=== PATIENT | female | born 1940 | race Caucasian/White ===

== ENCOUNTER → 2016-09-17 | Outpatient (CLI) | payer OTHER, MEDICARE ==
--- NOTE | 2016-09-17 14:30 | MAMMOGRAPHY REPORT ---
BILATERAL DIGITAL SCREENING MAMMOGRAM WITH CAD: 09/17/2016 CLINICAL HISTORY: Routine screening. TECHNIQUE: Bilateral CC and MLO views were obtained. Current study was also evaluated with a Comput er Aided Detection (CAD) system. COMPARISON: Comparison is made to exams dated: 09/13/2015 mammogram, 09/09/2014 mammogram, 09/08/2013 mamm ogram, 09/04/2012 mammogram, 09/03/2011 mammogram, and 08/28/2010 mammogram - [facility] er. BREAST COMPOSITION: There are scattered areas of fibroglandular density in both breasts. FINDINGS: There are a few scattered benign-appearing calcifications in the breasts. No suspicious ma ss, architectural distortion or cluster of suspicious microcalcifications is seen. IMPRESSION: ACR BI-RADS CATEGORY 1: NEGATIVE There is no mammographic evidence of malignancy. A 1 year screening mammogram is recommended. The pa tient will receive written notification of the results. Approximately 10% of breast cancers are not detected with mammography. A negative mammographic report should not delay biopsy if a clinically suggestive mass is present. Chantale Andrade M.D. ay/:09/17/2016 08:07:52 Heel Turner: Sage FELIX(Tasia)(Holden), [facility] letter sent: Normal 1/2 BI-RADS Code: ACR BI-RADS Category 1: Negative
== END | disposition home or self-care (01) ==
LOC: C.MAMM 07:35
PROVIDERS: ATTEND Obstetrics & Gynecology
DX: Z12.31 Encounter for screening mammogram for malignant neoplasm of breast (principal)

== ENCOUNTER → 2017-01-25 | Outpatient (CLI) | payer OTHER, MEDICARE ==
[2017-01-25 10:11] LABS: HEMATOCRIT 42.7 % (37-47); MEAN CELL VOLUME 93.8 fL (80-100); MEAN CORPUSCULAR HEMOGLOBIN 32.1 pg (25-34); MEAN CORPUSCULAR HGB CONC 34.2 g/dl (32-36); MEAN PLATELET VOLUME 10.5 fL (7.4-10.4); PLATELET COUNT 183 K/uL (130-400); RED BLOOD COUNT 4.55 M/uL (4.2-5.4); WHITE BLOOD COUNT 5.69 K/uL (4.8-10.8)
[2017-01-25 10:33] LABS: ALT/SGPT 38 U/L (12-78); AST/SGOT 34 U/L (15-37); BLOOD UREA NITROGEN 11 mg/dl (7-18); BUN/CREATININE RATIO 10.9 (10-20); CALCIUM 9.2 mg/dl (8.5-10.1); CARBON DIOXIDE 29 mmol/L (21-32); CHLORIDE 103 mmol/L (98-107); CREATININE 0.99 mg/dl (0.60-1.20); GLUCOSE 98 mg/dl (70-99); POTASSIUM 4.5 mmol/L (3.5-5.1); SODIUM 138 mmol/L (136-145)
[2017-01-25 10:36] LABS: ALB/GLOB RATIO 1.2 (0.9-2); ALKALINE PHOSPHATASE 91 U/L (45-117); CHOLESTEROL 174 mg/dl (0-200); CHOLESTEROL/HDL RATIO 2.9; HDL CHOLESTEROL 59 mg/dl; LDL CHOLESTEROL CALCULATED 97 mg/dl; TRIGLYCERIDES 92 mg/dl (0-150); VERY LOW DENSITY LIPOPROT CALC 18 mg/dl
[2017-01-25 11:21] LABS: BASO % 1.1 %; BASO ABS # 0.06 K/uL (0-0.2); COMPLETE YES; EOS % 0.7 %; IG% 0.5 %; LYMPH % 54.1 %; LYMPH ABS # 3.08 K/uL (1.2-3.4); MONO % 9.3 %; NEUT % 34.3 %
== END | disposition home or self-care (01) ==
LOC: C.LAB 09:23
PROVIDERS: ATTEND Nurse Practitioner Family
DX: R79.89 Other specified abnormal findings of blood chemistry (principal); E78.5 Hyperlipidemia, unspecified; I10 Essential (primary) hypertension; M81.0 Age-related osteoporosis without current pathological fracture

== ENCOUNTER 2017-10-17 07:57 | Emergency (ER) | payer OTHER, MEDICARE ==
[~2017-10-17] VITALS: Ht 160 cm; Wt 54.1 kg
[2017-10-17 08:00] VITALS: BP 156/72; Ht 160 cm; Wt 54.1 kg
--- NOTE | 2017-10-17 08:30 | DIAGNOSTIC IMAGING REPORT ---
L KNEE 3 VIEWS CLINICAL HISTORY: 77 years-old Female presenting with fall. TECHNIQUE: Frontal, sunrise, and lateral views of the left knee were obtained. COMPARISON: None. FINDINGS: Knee joint congruent. No significant joint space loss. No patellar subluxation. Minimal osteophytosis in the patellofemoral compartment prominently in the lateral facet. Enthesophyte noted at the insertion of the quadriceps tendon. No acute fracture or malalignment. No advanced degenerative change. Trace knee joint effusion may be present. IMPRESSION: 1. No acute osseous injury. 2. Mild degenerative changes in the patellofemoral compartment. Electronically signed by: Olivier Escamilla M.D. 10/17/2017 8:29 AM Dictated Date/Time: 10/17/2017 8:28 AM
[2017-10-17] MEDS ORDERED: LOVA20TA4 PO (08:38)
[2017-10-17] MEDS ORDERED: OMEP-334 PO (08:38)
[2017-10-17] MEDS ORDERED: CALC-20 PO (08:38)
[2017-10-17] MEDS ORDERED: DIPH1TAB87 PO (08:38)
[2017-10-17] MEDS ORDERED: MULT-506 PO (08:38)
[2017-10-17] MEDS ORDERED: OMEGCAP2 PO (08:38)
[2017-10-17 09:23] VITALS: PULSE 72; TEMP 36.6; O2SAT 98
--- NOTE | 2017-10-17 14:04 | EMERGENCY ROOM VISIT NOTE ---
ED Visit Note First contact with patient: 08:06 Chief Complaint: Left knee pain. History of Present Illness: Ms. Ann is a 77-year-old white female who ambulates into the ED accompanied by her complaining of anterior left knee pain. Patient reports yesterday morning approximately 20+ hours ago she tripped and fell while walking in the house in her kitchen. She reports she did strike her head on 1 of the cabinets but had no loss of consciousness. She reports that after she struck her head on a kitchen cabinet causing her to have some mild dizziness and her "eyes were out of focus for approximately 5 minutes". Those symptoms resolve and have not returned. Additionally she denies any signs of head injury since the fall. She reports when she landed on the ground she landed on a bent left knee. Since that time she has been noting increasing pain, bruising and swelling of the knee. Currently at rest she reports she is pain-free but when she moves from the sitting to standing position she develops a grinding-like pain in her knee. She rates his discomfort 5/10. The pain is nonradiating. She has been taken ibuprofen and using ice for her pain and has had moderate relief of her discomfort. She denies any associated symptoms including headache, dizziness, lightheadedness, visual changes, hearing changes, difficulty speaking, difficulty swallowing, difficulty ambulating/coordinating body movements, neck pain, back pain, chest pain, shortness of breath, abdominal pain, nausea, vomiting, left lower extremity weakness/numbness/tingling. Review of Systems: As noted above in history of present illness. 8 body systems were reviewed and found to be negative as noted above. Past Medical History: Dyslipidemia, osteoporosis. Current Medications: Omeprazole, Mevacor, Benadryl, multivitamin, calcium, fish oil. Allergies to Medications: Lisinopril, penicillin. Social History: Patient is currently retired and is not employed; she feels safe in her home environment; she denies tobacco use. Physical Examination: Vital Signs: Date Time Temp Pulse Resp B/P (MAP) Pulse Ox O2 Delivery O2 Flow Rate FiO2 10/17/17 09:23 36.6 72 18 98 10/17/17 08:00 36.5 78 20 156/72 96 Room Air GENERAL: 77-year-old female in mild distress due to pain, nontoxic-appearing, afebrile and hemodynamically stable. NEUROLOGICAL: Awake, alert and oriented to person, place and time. Answering questions appropriately and following commands. Normal gait. Good hand eye coordination. No focal motor or sensory deficits. Good short-term and long- term recall. Cranial nerves II through XII grossly intact. SKIN: Warm, dry and pink. Right Knee: Over the right anterior knee including patella patient has a contusion. There is no breaks in the skin HEENT: Atraumatic and normocephalic. Skull: No bony deformity, bony crepitus, raccoons eyes or mancera signs. No drainage from the ears of the nostril; no hemotympanum. Face: No bony deformity, bony crepitus, swelling or ecchymosis. PERRLA. EOMI without nystagmus. Sclera white and conjunctiva pink. No occlusion. No intraoral trauma. Airway patent. Speech is normal and clear. Trachea midline. No jugular venous distention. BACK: No tenderness over the bony spine. No CVA tenderness. THORAX: Lungs sounds are clear to auscultation and equal bilaterally with symmetrical chest wall. No wheezing, rales or rhonchi. No crepitus, tenderness , subcutaneous air or deformities noted. LEFT LOWER EXTREMITY: No gross bony deformity. No shortening or malrotation. No tenderness in the hip, thigh, lower leg, ankle or foot. Tenderness, swelling and bruising over the anterior knee including the patella. There is mild swelling in this area. I do not appreciate any bony deformity or crepitus. No laxity of the collateral or cruciate ligaments. Full range of motion in flexion and extension of the knee in plantarflexion and dorsiflexion of the ankle. Distal neurovascular statuses are intact and equal bilaterally. ED Course: Patient is assessed as noted above. Patient's medication list was reviewed. Patient was offered pain medication and refused. Left Knee X-Rays: Were read by myself and the radiologist showing no acute fractures or dislocations. Trace joint effusion. Minimal osteophytosis in the patellofemoral compartment predominantly over the lateral facet. Enthesophyte at the insertion of the quadriceps tendon. Patient was placed in an Juan bandage for support. Patient and were educated about today's findings and instructed on her treatment plan; they verbalized understanding and agreement with this plan. Clinical Impression: Left knee pain. Status post fall. Disposition: Patient discharged home in stable condition accompanied by her ; prior to departure she was reassessed and subjectively reported she was pain-free. Plan: Comfort measures were discussed with the patient including rest, ice, Juan bandage, alternating ibuprofen and acetaminophen for pain. Patient was encouraged to follow-up with community service specialist if no better in 6 -7 days. Patient was encouraged return the ED for worsening/uncontrolled pain, uncontrolled swelling, leg weakness/numbness/tingling or any new/concerning symptoms.
== END 2017-10-17 09:25 | disposition home or self-care (01) ==
LOC: C.EDB 07:59
DX: M25.562 Pain in left knee (principal); W01.0XXA Fall on same level from slipping, tripping and stumbling without subsequent striking against object, initial encounter; Y92.010 Kitchen of single-family (private) house as the place of occurrence of the external cause; E78.5 Hyperlipidemia, unspecified; M81.0 Age-related osteoporosis without current pathological fracture; Z79.899 Other long term (current) drug therapy; Z88.8 Allergy status to other drugs, medicaments and biological substances; Z88.0 Allergy status to penicillin

== ENCOUNTER → 2017-10-18 | Outpatient (CLI) | payer OTHER, MEDICARE ==
[~2017-10-18] MED LIST: CALC-20 PO; DIPH1TAB87 PO; LOVA20TA4 PO; MULT-506 PO; OMEGCAP2 PO; OMEP-334 PO
--- NOTE | 2017-10-18 15:27 | MAMMOGRAPHY REPORT ---
BILATERAL DIGITAL SCREENING MAMMOGRAM TOMOSYNTHESIS WITH CAD: 10/18/2017 CLINICAL HISTORY: Routine screening. Patient has no complaints. TECHNIQUE: The study was acquired using full field digital technology and interpreted from soft copy. Breast tomosynthesis in addition to standard 2D mammography was performed. Current study was also ev aluated with a Computer Aided Detection (CAD) system. COMPARISON: Comparison is made to exams dated: 09/17/2016 mammogram, 09/13/2015 mammogram, 09/09/2014 amy mogram, 09/08/2013 mammogram, 09/04/2012 mammogram, and 09/03/2011 mammogram - [facility] er. BREAST COMPOSITION: There are scattered areas of fibroglandular density in both breasts. FINDINGS: No suspicious masses, calcifications, or areas of architectural distortion are noted in either breast . There has been no significant interval change compared to prior exams. Scattered bilateral benign-a ppearing calcifications are not significantly changed. Asymmetry in the left subareolar breast is st able compared to multiple prior exams including the 2009 exam. Asymmetry in the right medial breast middle depth on the CC view is stable compared to multiple prior exams including the 2013 and 2007 ex ams. IMPRESSION: ACR BI-RADS CATEGORY 2: BENIGN There is no mammographic evidence of malignancy. A 1 year screening mammogram is recommended.( [id number]) The patient will receive written notification of the results. Some breast cancers are not detected with mammography. A negative mammographic report should not ricardo y biopsy if a clinically suggestive mass is present. Lyndsay Ngo M.D. ah/:10/18/2017 12:29:12 Foil Spinner: RT Misty(R)(M), [facility] letter sent: Normal 1/2 BI-RADS Code: ACR BI-RADS Category 2: Benign
== END | disposition home or self-care (01) ==
LOC: C.MAMM 09:55
PROVIDERS: ATTEND Obstetrics & Gynecology
DX: Z12.31 Encounter for screening mammogram for malignant neoplasm of breast (principal)

== ENCOUNTER 2023-08-16 09:28 | Inpatient (IN) ==
--- NOTE | 2023-08-16 09:35 | Emergency Department Note ---
Impression & Plan ACS (acute coronary syndrome), Neck pain, ST elevation (STEMI) myocardial infarction, Acute UTI ED Provider Note CHIEF COMPLAINT: Urinary symptoms and neck pain HISTORY OF PRESENTING ILLNESS: This 83 year old female patient presents to the ER via EMS with her for evaluation of urinary symptoms and neck pain. The patient had a fall on 08/06/[address] scans of her head and neck in the ER. She saw her PCP on 08/09/2023, 08/12/2023 and 08/13/2023 and was treated with prednisone and methocarbamol as well as meloxicam cyclobenzaprine, and tramadol without improvement of her symptoms. She discussed possible trigger point injections with her PCP, but they did not recommend them due to the location of the symptoms. She has not gotten into PT yet, but it is being set up. The patient has been feeling weak at home for the past 3 days and has had some very dark and strong smelling urine. The patient is still also having a lot of pain to the right side of her neck and bottom of her head. She denies chest pain or SOB. She denies abdominal pain, nausea, or vomiting. Does not have BMs very often, but this is her baseline. No change in her BMs recently. No new injury or trauma. The patient still has a mild headache to the bottom right side of the base of the skull. Denies dizziness, change in vision, or change in personality. However, the patient's states that she is beginning progressively weaker since the fall and she is now having trouble ambulating on her own when she was able to ambulate without problems previously. The patient and her are concerned that she is still having the right-sided neck and lower head pain. Her home nurses were also concerned about her symptoms and advised her to come to the ER. She is not on any blood thinners. REVIEW OF SYSTEMS: See HPI for pertinent positives and pertinent negatives. ALLERGIES: Augmentin, Doxycycline, lisinopril, PCN, grass pollen MEDICATIONS: See below PAST MEDICAL HISTORY: See below PHYSICAL EXAM: VITALS: Vitals are noted on the nurse's note and reviewed by myself. GENERAL: No acute distress, non-diaphoretic. SKIN: No obvious lacerations, abrasions, erythema, edema, fluctuance, or warmth in the area of concern. Capillary reflex less than 2 seconds. HEAD: The patient is tender to palpation over the right occipital area and base of the skull. No obvious step-offs felt. EYES: Pupils equal round and reactive to light and accommodation. Conjunctivae without injection, sclerae without icterus. Extraocular movements intact without pain. NOSE: Patent, turbinates without inflammation or discharge. No sinus tenderness. No septal hematoma or bleeding. FACE: No facial bone tenderness. Full range of motion of the jaw without tenderness. No facial droop. MOUTH: Mucous membranes moist. Uvula midline. Airway patent. Tongue does not deviate. NECK: Supple without nuchal rigidity. The patient is tender to palpation maximally over the right side of the C1 and C2 vertebrae and right-sided paraspinal muscles. The patient has decreased range of motion of the neck due to the pain. HEART: Regular rate and rhythm without murmurs gallops or rubs. LUNGS: Clear to auscultation bilaterally without wheezes, rales or rhonchi. No retractions or accessory muscle use. No chest wall tenderness. ABDOMEN: Positive bowel sounds x 4. Normal tympanic percussion. Soft, nontender, without masses or organomegaly. No guarding or rebound tenderness. MUSCULOSKELETAL: No tenderness of the thoracic or lumbar spine or paraspinal muscles. The patient's strength is 4/5, but equal throughout her bilateral upper and lower extremities. Peripheral pulses 2+ and equal in the bilateral upper and lower extremities. NEURO: Patient was alert and oriented at her baseline per . Normal sensation to light and sharp touch. No focal neurological deficits. DIFFERENTIAL DIAGNOSIS: Differential diagnosis includes benign positional vertigo, dehydration, hypovolemia, anemia, tumor, infection, hypoglycemia, electrolyte abnormalities, cardiac sources, intracerebral event, toxicologic, neurologic, concussion, contusion, fracture, subdural hematoma, epidural hematoma, intraparenchymal hemorrhage, UTI, sepsis, electrolyte abnormalities, dehydration as well as other pathologies. ED COURSE AND MEDICAL DECISION MAKING: HISTORY FROM INDEPENDENT HISTORIAN: Additional history obtained from the patient's . MONITOR: Continuous weapons and tactics instructor: Order was placed for continuous weapons and tactics instructor. Patient was placed on the weapons and tactics instructor and continuous pulse ox. Patient was noted to be in sinus tachycardia at an initial rate of 110 bpm per my interpretation. The patient was also hypotensive at 93/73. EKG: EKG was interpreted by myself as anterolateral ST elevations. This appears new compared to her previous EKG. Repeat EKG was interpreted by myself and shows slightly worsening anterolateral ST elevations. MEDICATIONS GIVEN: 500 mL normal saline solution bolus. Tylenol 1000 mg IV. Aspirin 324 mg p.o. chewed. INTERPRETATION OF LABS: I interpreted the labs with full lab results as below in the lab section of this note. The patient's white blood cell count was elevated at 12.11. Hemoglobin normal at 15.2. Coags were normal. Sodium low at 131, glucose elevated at 120, and AST 135. CMP otherwise without significant abnormalities. Magnesium normal. Lipase normal. Procalcitonin normal. The patient's urinalysis with positive nitrites, trace leukocytes, 6-10 white blood cells, and 4+ bacteria concerning for UTI with urine culture pending. Lactate elevated at 2.1. High-sensitivity troponin elevated at 16,908.7. INTERPRETATION OF IMAGING: Imaging studies were interpreted by myself and read by radiology as per the imaging section of this note. Chest x-ray with cardiomegaly, but no active disease of the chest. EXTERNAL RECORDS REVIEWED: Previous ER visit as well as multiple PCP visits as summarized above. CONSULTATIONS: Dr. Hensley of cardiology. Dr. Quintana of interventional cardiology. CRITICAL CARE: I have personally spent 35 minutes of critical care time in the direct management of this patient. This includes bedside care, interpretation of diagnostic studies, and testing, discussion with consultants, patient, and family members, and other required patient management activities. This 35 minutes is in excess of all separately billable procedures. MDM SUMMARY: I examined the patient. The patient presented to the ER via EMS for evaluation of urinary symptoms, weakness, and continued neck pain after a fall on 08/06/2023. The patient's and her home health aide were concerned that she seemed to be getting worse instead of better. The patient has been afebrile, but she was hypotensive and tachycardic upon arrival. The patient denied any chest pain, shortness of breath, abdominal pain, nausea, or vomiting. I reviewed the patient's past medical records. The patient had a CT scan of her head and cervical spine in the ER on 08/06/2023 that were negative for acute abnormalities. The patient is not on any blood thinners. She tried multiple medications as an outpatient as above without improvement of her symptoms. An IV lock was placed and labs were drawn. The patient was hydrated with 500 mL normal saline solution bolus. She was given Tylenol 1000 mg IV for her pain. The patient's white blood cell count was elevated at 12.11. Hemoglobin normal at 15.2. Coags were normal. Sodium low at 131, glucose elevated at 120, and AST 135. CMP otherwise without significant abnormalities. Magnesium normal. Lipase normal. Procalcitonin normal. The patient's urinalysis with positive nitrites, trace leukocytes, 6-10 white blood cells, and 4+ bacteria concerning for UTI with urine culture pending. However, urine was not treated in the ER as this resulted after the abnormal EKG and troponin as below. Chest x-ray showed cardiomegaly with no active disease in the chest. The decision was made to order a repeat CT scan of the head and neck as well as CTA of the head and neck for further evaluation of her continued symptoms along with her weakness and ambulatory dysfunction. However, the patient never had the scans done due to the abnormal EKG and troponin as below. The patient's initial EKG showed sinus tachycardia at [address] elevations in the anterolateral leads that appear new compared to her previous EKG. I took the EKG to Dr. Arvizu who also reviewed the EKG and was in agreement. Repeat EKG showed continued anterolateral ST elevation that was slightly worse. However, the patient was not having any chest pain or shortness of breath. Her neck pain had been present since her fall on 08/06/2023 and she had been weak for the past 3 days. Therefore, the recommendation was to consult cardiology for their opinion. I talked to Dr. Hensley right as the patient's troponin was being resulted. The patient's troponin came back elevated at 16,908.7 and the decision was made to call a heart alert. The patient was given aspirin 324 mg p.o. chewed. The patient's lactate also came back elevated at 2.1 at the same time, but this may be secondary to her cardiac etiology and less likely sepsis. Blood cultures, antibiotics, and sepsis fluids were not given/obtained because the patient was taken to the [facility] for the heart alert. The patient was independently evaluated by Dr. Arvizu, who agrees with my assessment and treatment plan. The patient was evaluated by Dr. Quintana of interventional cardiology and she was taken to the [facility]. The patient was taken to the [facility] in stable condition. DIAGNOSIS: ACS - STEMI UTI Neck pain Past Med/Surg History Problem List (Updated 08/16/23 @ 20:29 by Cindi Medina PA-C) Acute UTI (Acute) ST elevation (STEMI) myocardial infarction (Acute) Neck pain (Acute) UTI (urinary tract infection) ACS (acute coronary syndrome) (Acute) Neck pain (Acute) CHI (closed head injury) (Acute) Mild neurocognitive disorder (Chronic) Hyponatremia Closed fracture distal radius and ulna (02/22/23) Allergic rhinitis (Acute) Dyslipidemia (Acute) Benign essential hypertension (Acute) Laryngopharyngeal reflux (Acute) Osteoporosis (Acute) Medical History GERD (gastroesophageal reflux disease) Cardiac murmur Hyperlipidemia Surgical History History of tubal ligation History of dilatation and curettage History of colonoscopy History of tonsillectomy History of adenoidectomy History of cataract surgery R/L Family History Father Prostate cancer Mother Rheumatoid arthritis Osteoarthritis Denies family history of Ovarian cancer Myocardial infarction Breast cancer Colorectal cancer Social History Smoking Status: Never smoker Second Hand Exposure: No; Do You Dip or Chew Tobacco: No; Hx Alcohol Use: Yes Alcohol type: wine Alcohol Intake Frequency: 2-4 x/Month Hx Substance Use: No Preferred Language: Tajik Communication Ability: Effective Visual Impairment: No Limitations Hearing Ability: Normal Casing Machine Operator Required: No Beliefs That Will Affect Care: Restoration marital status: Current Living Situation: Alone and Spouse current occupational status: retired How many Children do You have: 2 Other Information That Helps Us Care for You: No Feels Safe at Home: Yes Safety Concerns: Feels Safe At This Time Childhood Exposure to Second-Hand Smoke: Yes Diet: regular caffeine: Yes during the past year weight has: remained stable Dental Care, Regularly: Yes Physical Activity Frequency: 5-6 Times per Week Seatbelt Use: always Sunscreen Use: Yes Assistive Devices: Denture - Upper and Glasses Allergies Allergies Allergy/AdvReac Type Severity Reaction Status Date / Time amoxicillin [From Augmentin] Allergy Unknown Verified 08/13/23 14:53 clavulanic acid Allergy Unknown Verified 08/13/23 14:53 [From Augmentin] doxycycline Allergy Unknown Verified 08/13/23 14:53 lisinopril Allergy Unknown vomitting Unverified 08/13/23 14:53 Penicillins Allergy Unknown HIVES Verified 08/13/23 14:53 grass pollen AdvReac Unknown Sneezing Verified 08/13/23 14:53 Home Meds Home Medications Medication Instructions Recorded Confirmed cholecalciferol (vitamin D3) 50 2,000 unit PO QPM 11/14/17 08/13/23 mcg (2,000 unit) capsule (Vitamin D3) multivitamin (Multiple Vitamins 1 tab PO QAM 11/14/17 08/13/23 tablet) calcium carbonate 500 mg-vitamin 1 tab PO DAILY 02/24/19 08/13/23 D3 5 mcg (200 unit) tablet (Calcium 500 + D) Previous Rx's Medication Instructions Recorded ipratropium bromide 42 mcg (0.06 2 spray intranasal TID #15 mL 03/20/23 %) nasal spray lovastatin 20 mg tablet 20 mg PO QAM #90 tabs 04/15/23 omeprazole 40 mg capsule,delayed 40 mg PO QAM #90 caps 05/13/23 release ondansetron HCl 4 mg tablet 4 mg PO BID PRN nausea and 08/09/23 vomiting 5 days #14 tabs cyclobenzaprine 10 mg tablet 10 mg PO TID #14 tabs 08/12/23 meloxicam 7.5 mg tablet 7.5 mg PO BID #30 tabs 08/12/23 tramadol 50 mg tablet 50 mg PO DAILY #7 tabs 08/12/23 Results & Data (ED) Vital Signs Vital Signs - 24 hr 08/16/23 09:33 08/16/23 09:33 08/16/23 10:32 Temperature 36.9 C Temperature Source Oral Pulse Rate 113 H 104 H Pulse Rate [Finger] 113 H Pulse Rhythm [Finger] Pulse Strength [Finger] Respiratory Rate 20 18 Respiratory Effort / Characteristics Non-Labored Spontaneous Non-Labored Spontaneous Respiratory Depth Normal Normal Respiratory Pattern Regular Regular Blood Pressure 93/73 L Blood Pressure [Right Arm] 93/73 L Blood Pressure Mean 79 Blood Pressure Mean [Right Arm] 79 Blood Pressure Position Lying Blood Pressure Position [Right Arm] Lying Pulse Oximetry 94 94 Oxygen Delivery Method Room Air Room Air Sepsis Recent Fever Within 48 Hours No Sepsis New/Unexplained Change in Mental Status N/A Sepsis Action Taken by Nursing Physician Notified 08/16/23 10:38 08/16/23 10:42 08/16/23 10:45 Temperature Temperature Source Pulse Rate 104 H Pulse Rate [Finger] 95 H 104 H Pulse Rhythm [Finger] Regular Pulse Strength [Finger] Normal Respiratory Rate 18 22 Respiratory Effort / Characteristics Non-Labored Spontaneous Respiratory Depth Normal Respiratory Pattern Regular Blood Pressure Blood Pressure [Right Arm] 117/80 Blood Pressure Mean Blood Pressure Mean [Right Arm] 92 Blood Pressure Position Blood Pressure Position [Right Arm] Lying Pulse Oximetry 96 96 Oxygen Delivery Method Room Air Room Air Sepsis Recent Fever Within 48 Hours Sepsis New/Unexplained Change in Mental Status Sepsis Action Taken by Nursing 08/16/23 10:54 Temperature Temperature Source Pulse Rate Pulse Rate [Finger] Pulse Rhythm [Finger] Pulse Strength [Finger] Respiratory Rate Respiratory Effort / Characteristics Respiratory Depth Respiratory Pattern Blood Pressure Blood Pressure [Right Arm] Blood Pressure Mean Blood Pressure Mean [Right Arm] Blood Pressure Position Blood Pressure Position [Right Arm] Pulse Oximetry Oxygen Delivery Method Room Air Sepsis Recent Fever Within 48 Hours Sepsis New/Unexplained Change in Mental Status Sepsis Action Taken by Nursing Laboratory Data 08/16/23 09:45 08/16/23 09:45 Lab Results 08/16/23 08/16/23 08/16/23 Range/Units 09:45 10:08 10:25 WBC 12.11 H (4.8-10.8) K/ul RBC 5.20 (4.20-5.40) M/uL Hgb 15.2 (12.0-16.0) g/dl Hct 45.3 (37.0-47.0) % MCV 87.1 (80.0-100.0) fL MCH 29.2 (25.0-34.0) pg MCHC 33.6 (32.0-36.0) g/dL RDW Std Deviation 46.4 H (36.4-46.3) fL RDW Coeff of Gloria 14.6 H (11.5-14.5) % Plt Count 302 (130-400) K/uL MPV 9.7 (9.4-12.4) fL Immature Gran % (Auto) 0.3 % Neut % (Auto) 73.9 % Lymph % (Auto) 16.0 % [place] % (Auto) 9.6 % Eos % (Auto) 0.0 % Baso % (Auto) 0.2 % Neut # (Auto) 8.95 H (1.40-6.50) K/uL Lymph # (Auto) 1.94 (1.20-3.40) K/uL [place] # (Auto) 1.16 H (0.11-0.59) K/uL Eos # (Auto) 0.00 (0.00-0.50) K/uL Baso # (Auto) 0.02 (0.00-0.20) K/uL Immature Gran # (Auto) 0.04 (0.01-0.20) K/uL PT 11.1 (9.0-12.0) Seconds INR 1.0 (0.9-1.1) APTT 29 (21-31) Seconds PTT Ratio 1.1 Sodium 131 L (136-145) mmol/L Potassium 4.4 (3.5-5.1) mmol/L Chloride 94 L (98-107) mmol/L Carbon Dioxide 29 (21-32) mmol/L Anion Gap 8 (3-11) BUN 17 (6-23) mg/dl Creatinine 0.83 (0.6-1.2) mg/dl Est Cr Clr Drug Dosing 40.3 ml/min Est GFR ( Amer) 75.6 ml/min Est GFR (Non-Af Amer) 65.2 ml/min BUN/Creatinine Ratio 20.5 H (10-20) Glucose 120 H (70-99(Fasting)) mg/dl Lactate 2.1 H* (0.4-2.0) mmol/L Calcium 9.6 (8.6-10.3) mg/dl Magnesium 1.8 (1.7-2.4) mg/dl Total Bilirubin 0.8 (0.2-1.0) mg/dl AST 135 H (13-39) U/L ALT 41 (7-52) U/L Alkaline Phosphatase 83 (34-104) U/L Troponin I High Sens 13506.7 H* (0-14) pg/ml Total Protein 8.2 (6.0-8.3) gm/dl Albumin 4.0 (3.4-5.0) gm/dl Globulin 4.2 H (2.5-4.0) gm/dl Albumin/Globulin Ratio 1.0 (0.9-2) Lipase 30 (11-82) U/L Procalcitonin 0.03 (0-0.5) ng/ml Urine Color Yellow Urine Appearance Cloudy A (Clear) Urine pH 7.0 (4.5-7.5) Ur Specific [place] 1.013 (1.000-1.030) Urine Protein Trace H (Negative) Urine Glucose (UA) Negative (Negative) Urine Ketones Negative (Negative) Urine Blood Negative (Negative) Urine Nitrite Positive A (Negative) Urine Bilirubin Negative (Negative) Urine Urobilinogen Negative (Negative) Ur Leukocyte Esterase Trace H (Negative) Urine WBC (Auto) 6-10 H (0-5) /hpf Urine RBC (Auto) 0-2 (0-2) /hpf U Hyaline Cast (Auto) 0-2 (0-2) /lpf U Epithel Cells (Auto) 0-2 (0-2) /hpf Urine Bacteria (Auto) 4+ H (None Seen) Administered Medications Acetaminophen (Acetaminophen 325 Mg Tab) 650 mg PO Q4H PRN PRN Reason: Pain or Fever Stop: 09/15/23 12:41 Last Admin: 08/16/23 14:17 Dose: 650 mg Documented By: TERESA Cyclobenzaprine HCl (Cyclobenzaprine Hcl 10 Mg Tab) 10 mg PO TID PRN PRN Reason: muscle spasm Stop: 09/15/23 12:41 Last Admin: 08/16/23 15:03 Dose: 10 mg Documented By: TERESA Ciprofloxacin (Cipro / D5w) 400 mg in 200 mls @ 100 mls/hr IV Q12H [facility]; Protocol Stop: 08/26/23 13:59 Last Infusion: 08/16/23 16:14 Dose: Infused Documented By: Admin: 08/16/23 14:12 Dose: 100 mls/hr Documented By: TERESA Discontinued Medications Aspirin (Aspirin Chew 324 Mg) 324 mg PO NOW STA Stop: 08/16/23 10:41 Last Admin: 08/16/23 10:45 Dose: 324 mg Documented By: TNK Fentanyl Citrate (Fentanyl Citrate Pf 100 Mcg/2 Ml Vial) Confirm Administered Dose 100 mcg .ROUTE .STK-MED ONE Stop: 08/16/23 10:54 Last Increment: 08/16/23 11:53 Dose: 25 mcg Documented By: MORENA Heparin Sodium (Porcine) (Heparin (Porcine) 1000 Unit/Ml 10 Ml ([employer] Use Only)) Confirm Administered Dose 10,000 units .ROUTE .STK-MED ONE Stop: 08/16/23 10:54 Last Admin: 08/16/23 11:53 Dose: 7,000 units Documented By: MORENA Heparin Sodium/Sodium Chloride (Heparin In Nss Infusion 1000 Unit/500 Ml (2 U/Ml) Bag) Confirm Administered Dose 3,000 units IV .STK-MED ONE Stop: 08/16/23 10:54 Last Admin: 08/16/23 11:19 Dose: 3,000 units Documented By: MORENA Sodium Chloride (Nss) 500 mls @ 999 mls/hr IV .Q31M STA Stop: 08/16/23 10:16 Last Infusion: 08/16/23 13:14 Dose: Infused Documented By: Admin: 08/16/23 11:18 Dose: 999 mls/hr Documented By: MORENA Acetaminophen (Ofirmev) 1,000 mg in 100 mls @ 400 mls/hr IV NOW STA Stop: 08/16/23 10:00 Last Admin: 08/16/23 12:53 Dose: Not Given Documented By: TERESA Sodium Chloride (Nss) 1,000 mls @ 100 mls/hr IV .Q10H LALITA Stop: 08/16/23 16:59 Last Admin: 08/16/23 13:14 Dose: 100 mls/hr Documented By: TERESA Parenteral Electrolytes (Plasma-Lyte A Ph 7.4) 500 mls @ 999 mls/hr IV .Q31M ONE Stop: 08/16/23 16:11 Last Infusion: 08/16/23 18:01 Dose: Infused Documented By: Admin: 08/16/23 15:54 Dose: 999 mls/hr Documented By: TERESA Ioversol (Optiray 350) Confirm Administered Dose 1 ml .ROUTE .STK-MED ONE Stop: 08/16/23 10:55 Last Admin: 08/16/23 11:56 Dose: 1 ml Documented By: MORENA Midazolam HCl (Midazolam Hcl 1 Mg/Ml 2ml Vial) Confirm Administered Dose 2 mg .ROUTE .STK-MED ONE Stop: 08/16/23 10:54 Last Increment: 08/16/23 11:56 Dose: 1 mg Documented By: MORENA Nicardipine HCl (Nicardipine Hcl Inj 2.5 Mg/Ml 10 Ml Amp) Confirm Administered Dose 25 mg .ROUTE .STK-MED ONE Stop: 08/16/23 10:54 Last Admin: 08/16/23 11:19 Dose: 25 mg Documented By: MORENA Nitroglycerin/Dextrose (Nitroglycerin/D5w 100mcg/Ml 20ml Syr) Confirm Administered Dose 2,000 mcg .ROUTE .STK-MED ONE Stop: 08/16/23 10:55 Last Admin: 08/16/23 11:19 Dose: 2,000 mcg Documented By: MORENA Ticagrelor (Ticagrelor 90 Mg Tab) Confirm Administered Dose 180 mg .ROUTE .STK- MED ONE Stop: 08/16/23 11:38 Last Admin: 08/16/23 11:58 Dose: 180 mg Documented By: MORENA Imaging Data Radiologist's Impression: Chest X-Ray 08/16/23 09:47 SINGLE VIEW CHEST CLINICAL HISTORY: Atypical chest pain FINDINGS: An AP, portable, upright chest radiograph is compared to study dated 03/20/2023. The heart is enlarged noting atherosclerotic calcification of the thoracic aorta. The pulmonary vasculature is noncongested. Chronic interstitial thickening similar to previous. There is bibasilar scarring/atelectasis. The lungs and pleural spaces are otherwise clear. No pneumothorax is seen. The skeletal structures are osteopenic. The bony thorax is grossly intact. IMPRESSION: Cardiomegaly with no active disease in the chest. ACT 112: Negative or not required by law. Electronically signed by: Brandon Siegel M.D. 08/16/2023 10:19 AM Discharge Plan Visit Data Chief Complaint: Urinary Symptoms Stated Complaint: neck pain ED Provider: Miller Arvizu ED Midlevel Provider: Cindi Medina Discharge Problem: ACS (acute coronary syndrome), Neck pain, ST elevation (STEMI) myocardial infarction, Acute UTI Patient Disposition: Admitted As Inpatient Condition: Fair Discharge Instructions Interventions: ED Discharge Assessment Last Done: 08/16/23 10:54 Discharge Problem: ST elevation (STEMI) myocardial infarction Qualifiers: Involved coronary artery: LAD coronary artery Qualified Code(s): I21.02 - ST elevation (STEMI) myocardial infarction involving left anterior descending coronary artery
[2023-08-16 10:01] LABS: Basophils # (auto) 0.02 K/uL (0.00-0.20); Basophils % (auto) 0.2 %; Hematocrit (blood only) 45.3 % (37.0-47.0); Hemoglobin 15.2 g/dl (12.0-16.0); Immature Granulocytes # (auto) 0.04 K/uL (0.01-0.20); Immature Granulocytes % (auto) 0.3 %; Lymphocytes # (auto) 1.94 K/uL (1.20-3.40); Mean Corpuscular Hemoglobin 29.2 pg (25.0-34.0); Mean Corpuscular Hgb Conc 33.6 g/dL (32.0-36.0); Mean Corpuscular Volume 87.1 fL (80.0-100.0); Mean Platelet Volume 9.7 fL (9.4-12.4); Monocytes # (auto) 1.16 K/uL (0.11-0.59); Monocytes % (auto) 9.6 %; Neutrophils # (auto) 8.95 K/uL (1.40-6.50); Neutrophils % (auto) 73.9 %; Platelet Count 302 K/uL (130-400); RDW Coefficient of Variation 14.6 % (11.5-14.5); RDW Standard Deviation 46.4 fL (36.4-46.3); White Blood Count 12.11 K/ul (4.8-10.8)
[2023-08-16 10:17] LABS: BUN Creatinine Ratio 20.5 (10-20); Bilirubin,Total 0.8 mg/dl (0.2-1.0); Calcium 9.6 mg/dl (8.6-10.3); Creatinine Clr Calc Pharmacy 40.3 ml/min; Est GFR (African American) 75.6 ml/min; Est GFR (Non-African American) 65.2 ml/min; Globulin 4.2 gm/dl (2.5-4.0); Magnesium 1.8 mg/dl (1.7-2.4); Potassium 4.4 mmol/L (3.5-5.1); Total Protein 8.2 gm/dl (6.0-8.3)
--- NOTE | 2023-08-16 10:21 | XRay Report ---
SINGLE VIEW CHEST CLINICAL HISTORY: Atypical chest pain FINDINGS: An AP, portable, upright chest radiograph is compared to study dated 03/20/2023. The heart i s enlarged noting atherosclerotic calcification of the thoracic aorta. The pulmonary vasculature is n oncongested. Chronic interstitial thickening similar to previous. There is bibasilar scarring/atelect asis. The lungs and pleural spaces are otherwise clear. No pneumothorax is seen. The skeletal structu res are osteopenic. The bony thorax is grossly intact. IMPRESSION: Cardiomegaly with no active disease in the chest. ACT 112: Negative or not required by law. Electronically signed by: Brandon Siegel M.D. 08/16/2023 10:19 AM
[2023-08-16 10:33] LABS: Partial Thromboplastin Ratio 1.1; Partial Thromboplastin Time 29 Seconds (21-31); Prothrombin Time 11.1 Seconds (9.0-12.0); Troponin I High Sensitivity 16908.7 pg/ml (0-14)
[2023-08-16] MEDS: ASPIRIN CHEW 324 MG PO STA (10:45)
--- NOTE | 2023-08-16 10:51 | Pre Anesthesia Assessment ---
Date of Service August 16, 2023 Pre Sedation Assessment Vital Signs Temp Pulse Pulse Resp BP BP Pulse Ox 08/16/23 10:45 104 H 22 96 08/16/23 10:42 104 H 18 117/80 96 08/16/23 10:32 104 H 08/16/23 09:33 113 H 18 93/73 L 94 08/16/23 09:33 98.5 F 113 H 20 93/73 L 94 O2 Del Method 08/16/23 10:45 Room Air 08/16/23 10:42 Room Air 08/16/23 10:32 08/16/23 09:33 Room Air 08/16/23 09:33 Room Air Cardiovascular + regular rate Respiratory + respiratory effort normal Pre-Sedation Airway Assessment Smoking Status: Never smoker Hx Sleep Apnea: No Hx Difficult Intubation: No Short, Thick Neck: No Thyromental Distance: < 3.5 Finger Breadths Oral Cavity: + Dental Abnormalities Mallampati Class: III ASA: ASA3 Procedure Planning Contraindications for Sedation: none Current Medications Reviewed: Yes Notes The planned sedation has been discussed with the patient. Informed Consent was obtained. I have identified the patient, determined the appropriateness of sedation and have assessed the patient immediately prior to the procedure. All medicine(s) and interventions are by my order.
--- NOTE | 2023-08-16 10:56 | History & Physical Report ---
Date of Service August 16, 2023 Assessment & Plan (1) ACS (acute coronary syndrome): Plan: STEMI EKG w/ lateral ST elevations compared to prior Troponin 17,000 Patient had reproducible neck pain with recent neck injury, otherwise denied neck/shoulder/chest pain Received full dose aspirin, was taken emergently to the [facility] Received 1 stent to distal LAD, doing well since. Patient has had improvement of part of her neck pain, although notes some reproducible neck pain persists Continue aspirin/Plavix. Very low-dose metoprolol twice daily started. RADHA/ARB deferred. Troponin trended echo pending. Lovastatin increased to at least moderate potency, 40 mg. Previously on 20 mg (2) UTI (urinary tract infection): Plan: UTI Leukocytosis of 12.11, several days of dark and foul-smelling urine with increased frequency Lactate 2.1 on admission in the setting of STEMI as above UA infected appearin No abdominal pain Procalcitonin negative -Patient is penicillin allergic. Has never received cephalosporin. QTc 433.Will give Cipro twice daily for UTI, narrow based on sensitivities. - Continue statin (3) Neck pain: Plan: No fracture seen on prior CT Slight tenderness to palpation at the right occiput, otherwise neck pain has greatly improved (4) Mild neurocognitive disorder: Plan: Mild neurocognitive impairment Last slums exam with a score of 21/30, stable from prior of and consistent with mild neurocognitive impairment Plan DVT prophylaxis: Heparin Dispo: PCU CODE STATUS: DNR/DNI. Formally full code, patient reports that in the event of a cardiopulmonary arrest she would want to be allowed to pass. She was able to elicit the risk benefits this decision and how it applies to her in the event of cardiac arrest and does appear to have capacity at time of assessment. Diet: Heart healthy History of Present Illness Primary Care Provider: Rafael Lazo, ABBY, ROMEL Nick is a 83-year-old female with a past medical history of mild cognitive decline last slums examination 21 consistent with minor neurocognitive impairment, GERD, and a recent fall approximately 10 days ago with residual reproducible cervical paraspinal muscle tenderness but with no cervical fracture/subluxation seen on CT of the C-spine presented to the ER 08/16/2023 for persistent pain in the right side of her neck which had not improved with multimodal pain control as an outpatient, which was reproducible, and with progressive weakness and foul-smelling urine with some concern for UTI. While in the ER opponent was elevated at 17,000, EKG was with sinus tachycardia and with lateral ST elevations new from prior. Heart alert was called. Other than her neck pain patient denied chest and radiating pain while in the ER History of social alcohol use, no history of tobacco use No prior history of CVA/CAD Discussed w cardiology. Distal LAD occlusion, small stent placed. Opened OK, small vessel. Remains chest pain free. Plaavix/ASA. Echo, trend trop. Mason seen at the bedside postcatheterization. She reports that she still has a little bit of pain in her right posterior superior neck (occiput), however the pain that was bothering her when she came to the ER seems to be improved to resolved and only notices pain now on palpation or neck rotation. She denies past history of cardiac disease. She does not think she has medication allergies but is not completely sure. She denies shortness of breath. She denies sweats. She has had some increased odor of her urine, but denies dysuria/polyuria Denies fever chills or sweats Denies abdominal pain Overall feels well after catheterization with no additional questions or concerns. Nontoxic-appearing Allergies Allergy/AdvReac Type Severity Reaction Status Date / Time amoxicillin [From Augmentin] Allergy Unknown Verified 08/13/23 14:53 clavulanic acid Allergy Unknown Verified 08/13/23 14:53 [From Augmentin] doxycycline Allergy Unknown Verified 08/13/23 14:53 lisinopril Allergy Unknown vomitting Unverified 08/13/23 14:53 Penicillins Allergy Unknown HIVES Verified 08/13/23 14:53 grass pollen AdvReac Unknown Sneezing Verified 08/13/23 14:53 Home Medications Medication Instructions Recorded Confirmed Type cholecalciferol (vitamin D3) 50 2,000 unit PO QPM 11/14/17 08/13/23 History mcg (2,000 unit) capsule (Vitamin D3) multivitamin (Multiple Vitamins 1 tab PO QAM 11/14/17 08/13/23 History tablet) calcium carbonate 500 mg-vitamin 1 tab PO DAILY 02/24/19 08/13/23 History D3 5 mcg (200 unit) tablet (Calcium 500 + D) ipratropium bromide 42 mcg (0.06 2 spray intranasal TID #15 mL 03/20/23 08/13/23 Rx %) nasal spray lovastatin 20 mg tablet 20 mg PO QAM #90 tabs 04/15/23 08/13/23 Rx omeprazole 40 mg capsule,delayed 40 mg PO QAM #90 caps 05/13/23 08/13/23 Rx release ondansetron HCl 4 mg tablet 4 mg PO BID PRN nausea and 08/09/23 08/13/23 Rx vomiting 5 days #14 tabs cyclobenzaprine 10 mg tablet 10 mg PO TID #14 tabs 08/12/23 08/13/23 Rx meloxicam 7.5 mg tablet 7.5 mg PO BID #30 tabs 08/12/23 08/13/23 Rx tramadol 50 mg tablet 50 mg PO DAILY #7 tabs 08/12/23 08/13/23 Rx Past Med/Surg History Problem List (Updated 08/16/23 @ 13:01 by Olivier Bowen MD) UTI (urinary tract infection) ACS (acute coronary syndrome) Neck pain (Acute) CHI (closed head injury) (Acute) Mild neurocognitive disorder (Chronic) Hyponatremia Closed fracture distal radius and ulna (02/22/23) Allergic rhinitis (Acute) Dyslipidemia (Acute) Benign essential hypertension (Acute) Laryngopharyngeal reflux (Acute) Osteoporosis (Acute) Medical History GERD (gastroesophageal reflux disease) Cardiac murmur Hyperlipidemia Surgical History History of tubal ligation History of dilatation and curettage History of colonoscopy History of tonsillectomy History of adenoidectomy History of cataract surgery R/L Family History Father Prostate cancer Mother Rheumatoid arthritis Osteoarthritis Denies family history of Ovarian cancer Myocardial infarction Breast cancer Colorectal cancer Social History Smoking Status: Never smoker Second Hand Exposure: No; Do You Dip or Chew Tobacco: No; Hx Alcohol Use: Yes Alcohol type: wine Alcohol Intake Frequency: 2-4 x/Month Hx Substance Use: No Preferred Language: Croatian Communication Ability: Effective Visual Impairment: No Limitations Hearing Ability: Normal Civil Engineering Director Required: No Beliefs That Will Affect Care: Quaker marital status: Current Living Situation: Alone and Spouse current occupational status: retired How many Children do You have: 2 Feels Safe at Home: Yes Childhood Exposure to Second-Hand Smoke: Yes Diet: regular caffeine: Yes during the past year weight has: remained stable Dental Care, Regularly: Yes Physical Activity Frequency: 5-6 Times per Week Seatbelt Use: always Sunscreen Use: Yes Assistive Devices: Denture - Upper and Glasses Physical Exam Physical Exam: General: A&Ox3. NAD. Cooperative. HEENT: Atraumatic, normocephalic. PERLAA. Vision intact, slightly [place]. Neck is with mild tenderness to palpation at the right occiput Pulm: CTAB A&P. -wheezes, -rales, -rhonchi. Symmetrical chest rise. No increased work of breathing. No respiratory distress. Cardiac: RRR, +soft sm. Radial pulses intact and symmetrical. Abdominal: Nontender, nondistended, soft. BS present. Ext: R wrist with TR band in place. Sod Cutter and sensation in R hand intact. Cap refill brisk. Results & Data Results & Data Vital Signs (Past 12 Hours) Vital Signs Temp Pulse Pulse Resp BP BP Pulse Ox 08/16/23 10:45 104 H 22 96 08/16/23 10:42 104 H 18 117/80 96 08/16/23 10:32 104 H 08/16/23 09:33 113 H 18 93/73 L 94 08/16/23 09:33 36.9 C 113 H 20 93/73 L 94 O2 Del Method 08/16/23 10:45 Room Air 08/16/23 10:42 Room Air 08/16/23 10:32 08/16/23 09:33 Room Air 08/16/23 09:33 Room Air PG Care Time/CCT Total # of Minutes Spent Total Time Spent with Patient: Total time spent is greater than 50% in coordination of care (as documented) at patient's floor/unit and/or counseling patient: Coding Level of Care Code 58988 INT INP/OBS CARE 3/75MIN Diagnoses ACS (acute coronary syndrome) I24.9 UTI (urinary tract infection) N39.0 Neck pain M54.2 Mild neurocognitive disorder G31.84
--- NOTE | 2023-08-16 11:02 | Cardiology Consultation ---
Date of Consultation August 16, 2023 Assessment & Plan (1) ACS (acute coronary syndrome): Patient chest pain-free, here with neck pain after mechanical fall. Found to have significantly elevated troponin and ECG with new anterolateral ST elevations. Plan on emergent cardiac catheterization to rule out acute high risk CAD. High suspicion for possible stress-induced cardiomyopathy. No apparent contraindications to procedure. Discussed risks, benefits, alternatives of procedure with patient and they are willing to proceed. Further recommendations pending findings of coronary angiography. History of Present Illness History of Present Illness 83-year-old woman seen emergently in ED after heart alert called due to significantly elevated troponin and new anterior lateral ST elevations. No prior cardiac history. Cardiac risk factors include hypertension, dyslipidemia. Other medical issues include GERD. Patient had a mechanical fall on 08/06/2023 with resulting neck pain. Was seen in the ED after fall and imaging negative for fracture. ECG at that time showed sinus rhythm with no ST abnormalities. Since that time she is continued to have intermittent neck pain, which has not responded to NSAIDs/muscle relaxers. Per has also been increasingly fatigued with "no energy" over the last day or 2 (at baseline walks 5 miles/day). PCP was contacted who suggested patient return to ED. In ED today had continued neck pain but no chest pain. Found to have possible UTI. HS TropI elevated at 16,000. ECG showed sinus rhythm with new anterolateral ST elevations. Patient has been chest pain free over the last week. Denies any palpitations, heart failure symptoms. Chest x-ray unremarkable. Lactate mildly elevated 2.1. Allergies Allergy/AdvReac Type Severity Reaction Status Date / Time amoxicillin [From Augmentin] Allergy Unknown Verified 08/13/23 14:53 clavulanic acid Allergy Unknown Verified 08/13/23 14:53 [From Augmentin] doxycycline Allergy Unknown Verified 08/13/23 14:53 lisinopril Allergy Unknown vomitting Unverified 08/13/23 14:53 Penicillins Allergy Unknown HIVES Verified 08/13/23 14:53 grass pollen AdvReac Unknown Sneezing Verified 08/13/23 14:53 Home Medications Medication Instructions Recorded Confirmed Type cholecalciferol (vitamin D3) 50 2,000 unit PO QPM 11/14/17 08/16/23 History mcg (2,000 unit) capsule (Vitamin D3) multivitamin (Multiple Vitamins 1 tab PO QAM 11/14/17 08/16/23 History tablet) calcium carbonate 500 mg-vitamin 1 tab PO DAILY 02/24/19 08/16/23 History D3 5 mcg (200 unit) tablet (Calcium 500 + D) ipratropium bromide 42 mcg (0.06 2 spray intranasal TID #15 mL 03/20/23 08/16/23 Rx %) nasal spray lovastatin 20 mg tablet 20 mg PO QAM #90 tabs 04/15/23 08/16/23 Rx omeprazole 40 mg capsule,delayed 40 mg PO QAM #90 caps 05/13/23 08/16/23 Rx release ondansetron HCl 4 mg tablet 4 mg PO BID PRN nausea and 08/09/23 08/16/23 Rx vomiting 5 days #14 tabs cyclobenzaprine 10 mg tablet 10 mg PO TID #14 tabs 08/12/23 08/16/23 Rx meloxicam 7.5 mg tablet 7.5 mg PO BID #30 tabs 08/12/23 08/16/23 Rx tramadol 50 mg tablet 50 mg PO DAILY #7 tabs 08/12/23 08/16/23 Rx Patient History Medical History GERD (gastroesophageal reflux disease) Cardiac murmur Hyperlipidemia Surgical History History of tubal ligation History of dilatation and curettage History of colonoscopy History of tonsillectomy History of adenoidectomy History of cataract surgery R/L Family History Father Prostate cancer Mother Rheumatoid arthritis Osteoarthritis Denies family history of Ovarian cancer Myocardial infarction Breast cancer Colorectal cancer Social History Smoking Status: Never smoker Second Hand Exposure: No; Do You Dip or Chew Tobacco: No; Hx Alcohol Use: Yes Alcohol type: wine Alcohol Intake Frequency: 2-4 x/Month Hx Substance Use: No Preferred Language: Paraguayan Communication Ability: Effective Visual Impairment: No Limitations Hearing Ability: Normal Computer Systems Architect Required: No Beliefs That Will Affect Care: Buddhist marital status: Current Living Situation: Alone and Spouse current occupational status: retired How many Children do You have: 2 Other Information That Helps Us Care for You: No Feels Safe at Home: Yes Safety Concerns: Feels Safe At This Time Childhood Exposure to Second-Hand Smoke: Yes Diet: regular caffeine: Yes during the past year weight has: remained stable Dental Care, Regularly: Yes Physical Activity Frequency: 5-6 Times per Week Seatbelt Use: always Sunscreen Use: Yes Assistive Devices: Denture - Upper and Glasses Review of Systems Review of Systems: All systems reviewed & are unremarkable except as noted in HPI & below Physical Exam Physical Exam: General: Comfortable, restricted neck movement, pain reproducible with palpation to neck HEENT: Sclerae anicteric Lungs: Clear to auscultation bilaterally Cardiac: Regular rate and rhythm, no murmurs. Vascular: 2+ radial Abdomen: Soft, nontender Extremities: Well perfused, no peripheral edema Neuro: Nonfocal Psych: Alert orient x3, normal affect and mood Results & Data Vital Signs (Past 12 Hours) Vital Signs Temp Pulse Pulse Resp BP BP Pulse Ox 08/16/23 10:45 104 H 22 96 08/16/23 10:42 104 H 18 117/80 96 08/16/23 10:32 104 H 08/16/23 09:33 113 H 18 93/73 L 94 08/16/23 09:33 98.5 F 113 H 20 93/73 L 94 O2 Del Method 08/16/23 10:45 Room Air 08/16/23 10:42 Room Air 08/16/23 10:32 08/16/23 09:33 Room Air 08/16/23 09:33 Room Air PG Care Time/CCT Total # of Minutes Spent Total Time Spent with Patient: Total time spent is greater than 50% in coordination of care (as documented) at patient's floor/unit and/or counseling patient: Coding Level of Care Code 06292 ER DEPT VISIT MOD LVL 4 Diagnoses ACS (acute coronary syndrome) I24.9
[2023-08-16 11:11] LABS: Appearance Urine Cloudy (Clear); Bacteria Urine Automated 4+ (None Seen); Bilirubin Urine Negative (Negative); Blood Urine Negative (Negative); Cast Urine Automated 0-2 /lpf (0-2); Color Urine Yellow; Epithelial Cell Urine Auto 0-2 /hpf (0-2); Glucose Urine UA Negative (Negative); Ketones Urine Negative (Negative); Leukocyte Esterase Urine Trace (Negative); Nitrite Urine Positive (Negative); Protein Urine Trace (Negative); RBC Urine Automated 0-2 /hpf (0-2); Specific Gravity Urine 1.013 (1.000-1.030); Urobilinogen Urine Negative (Negative)
[2023-08-16] MEDS: SODIUM CHLORIDE 0.9% 500 ML IV STA (11:18)
[2023-08-16] MEDS: niCARdipine HCL INJ 2.5 MG/ML 10 ML AMP ONE (11:19)
[2023-08-16] MEDS: NITROGLYCERIN/D5W 100MCG/ML 20ML SYR ONE (11:19)
[2023-08-16] MEDS: fentaNYL citrate PF 100 MCG/2 ML VIAL ONE (11:53)
[2023-08-16] MEDS: HEPARIN (PORCINE) 1000 UNIT/ML 10 ML (CATH LAB USE ONLY) ONE (11:53)
[2023-08-16] MEDS: MIDAZOLAM HCL 1 MG/ML 2ML VIAL ONE (11:56)
[2023-08-16] MEDS: OPTIRAY 350 ONE (11:56)
[2023-08-16] MEDS: TICAGRELOR 90 MG TAB ONE (11:58)
[2023-08-16] MEDS: ACETAMINOPHEN 1,000 MG/100 ML VIAL IV STA (12:53)
[2023-08-16] MEDS: SODIUM CHLORIDE 0.9% 1,000 ML IV SCH (13:14)
[2023-08-16] MEDS: CIPROFLOXACIN / D5W 400 MG/200 ML BAG IV SCH (14:12)
[2023-08-16] MEDS: ACETAMINOPHEN 325 MG TAB PO PRN (14:17)
[2023-08-16] MEDS: CYCLOBENZAPRINE HCL 10 MG TAB PO PRN (15:03)
[2023-08-16] MEDS: PLASMA-LYTE A 500 ML IV ONE (15:54)
--- NOTE | 2023-08-16 19:39 | XCELERA ---
[id number]
[2023-08-16] MEDS: METOPROLOL TARTRATE 25 MG TAB PO SCH (20:29)
--- NOTE | 2023-08-16 20:50 | Post Anesthesia Assessment ---
Date of Service August 16, 2023 Post Sedation Assessment Vital Signs Temp Pulse Pulse Resp BP BP BP 08/16/23 19:08 98.1 F 85 18 120/64 08/16/23 16:18 98.4 F 98 H 18 107/70 08/16/23 16:06 98.1 F 89 20 107/70 08/16/23 13:09 97.7 F 94 H 18 121/77 08/16/23 12:47 98.1 F 94 H 18 122/64 08/16/23 12:42 98.1 F 95 H 20 127/64 08/16/23 12:20 89 16 110/71 08/16/23 12:05 94 H 16 122/76 08/16/23 10:54 08/16/23 10:45 104 H 22 08/16/23 10:42 104 H 18 117/80 08/16/23 10:38 95 H 08/16/23 10:32 104 H 08/16/23 09:33 113 H 18 93/73 L 08/16/23 09:33 98.5 F 113 H 20 93/73 L Pulse Ox O2 Del Method 08/16/23 19:08 97 Room Air 08/16/23 16:18 95 Room Air 08/16/23 16:06 96 Room Air 08/16/23 13:09 97 Room Air 08/16/23 12:47 96 Room Air 08/16/23 12:42 95 Room Air 08/16/23 12:20 97 Room Air 08/16/23 12:05 97 Room Air 08/16/23 10:54 Room Air 08/16/23 10:45 96 Room Air 08/16/23 10:42 96 Room Air 08/16/23 10:38 08/16/23 10:32 08/16/23 09:33 94 Room Air 08/16/23 09:33 94 Room Air Recovery Score Activity: Moves 4 extremities Respiration: Deep Breath/Cough Circulation: +/-20% PreAnes Value Consciousness: Fully Awake Oxygen Saturation: > 92% On Room Air Post Anesthesia Score: 10 Discharge Sedation Level of Care: Fast Track Phase II Post Sedation Plan On clinical assessment, the patient appears to have tolerated the sedation without complications. Patient is recovering as anticipated. Patient will continue to be monitored by nursing and may be discharged when sedation discharge criteria are met per below protocol. Upon Completions of procedure up to 15 minutes continue every 5 minute vital signs and the P.A.R. score; then discharge to a Phase I or Fast Track to Phase II per the following guidelines: * Discharge Patient to appropriate Phase II area if PAR is 8 or greater or ret urn to pre- procedure baseline. The post - procedure orders will be as directed. * If PAR score is less than 8 or not return to pre-procedure baseline then patient will follow Phase I monitoring till PAR is reached for Phase II. The Phase I may be done in procedure room or may call to secure a Phase I area. * If naloxone or flumazenil are used for reversal, hold in Phase I for continued monitoring from when last reversal dose was given for a minimum of 60 minutes or longer pending the nurse and/or physician discretion of patient condition before discharge to Phase II. Please call the Sedation Physician to re-evaluate and complete post-note for discharge to Phase II area. Do NOT discharge from procedure sedation or Phase 1 until post- sedation evaluation note is complete by procedure /sedation MD Sedation Discharge Instructions to be given to the patient at discharge to home.
--- NOTE | 2023-08-16 20:57 | Cardiac Catheterization ---
[facility] Data: Parachute Inspector Cardiac Status Clinical evaluation leading to the procedure CAD Presenation: STEMI Anginal Classification: CCS IV Diagnostic Physicians Name: Luis Quintana MD Closure Device Recommendations: PCI without planned CABG Cardiac Cath Procedure Full Procedure Date August 16, 2023 Pre-Procedure Diagnosis Pre-Procedure Diagnosis: STEMI AUC Score AUC Score: 9 Post-Procedure Diagnosis Post-Procedure Diagnosis: Severe CAD, Successful PCI and Normal Intracardiac Pressures Procedure(s) Performed Procedure(s) Performed: Coronary Angiography, Left Heart Cath and Drug Eluting Stent Lone Lead Lineman Luis Quintana MD Rn Utilization Management Um(s) Evin Estimated Blood Loss Estimated Blood Loss: 20 Medication(s) Medication(s): Clopidogrel, Fentanyl, Heparin, Lidocaine 1%, Nicardipine, Nitroglycerin and Versed Summary of Findings Indication: STEMI/Heart Alert Access: 6 Fr right radial artery Catheters: [place], EBU 3.5 guide Findings: LM -medium caliber, luminal irregularities. LAD -medium caliber 20-30% proximalearly mid segment disease disease. Latemid 40% stenosis. Distal LAD 100% acute occlusion. Circumflex -small to medium caliber, no significant disease. RCA -dominant, medium caliber, mid segment luminal irregularities, 2030% distal stenosis. 20-30% stenosis in right posterior AV branch. Medium PDA without significant disease. Terminal PLB without disease. LVEDP -13 -- PCI -- Antithrombotic therapy: Heparin, ticagrelor Procedure: Left main cannulated with EBU 3.5 guide Family Counselor 50 wire passed across lesion into distal vessel Distal LAD lesion predilated with 2.0 compliant balloon Limited reflow post occlusion. IC vasodilators administered Apical LAD further dilated with 1.5 balloon Dilated distal lesion stented with 2.0 x 15 mm [place] drug-eluting stent Stent post-dilated with stent balloon Additional IC vasodilators administered for spasm Noted to have residual stenosis distal to stent further dilated with 2.0 balloon Post procedure VIKTORIYA 3 flow, stent well expanded with minimal residual stenosis and no apparent cardiac complications. Arterial Closure: TR band Summary: 1. Acute 100% small distal LAD occlusion 2. Mild non-culprit coronary artery disease -20-30% proximal, 40% mid LAD 20-30% distal RCA and right posterior AV branch 3. Normal intracardiac filling pressure 4. Successful PCI of distal LAD occlusion with single drug-eluting stent (2.0 x 15 mm Alec). Recommendations: Admit to PCU for continued monitoring Loaded with ticagrelor 180 mg in Parachute Inspector Transition to clopidogrel tomorrow. Continue dual-antiplatelet therapy for at least 1 year. Trend troponins until peak, Check Echo Uptitrate beta-leeanne/RADHA as BP allows High-dose statin Consult cardiac Rehab Hemodynamics Rest Ao:: 104/55/78 Final Ao: 113/62/82 LV: 113/13 Recommendations Recommendations: PCI without planned CABG Specimens Specimens: None Radiation Exposure (mGy) 679 Contrast (mls) 120 Anesthesia Moderate 1257-5592 Procedural Complication(s) None Disposition PCU I attest to the content of the Intraoperative Record and any orders documented therein. Any exceptions are noted below. [facility] Card Cath Procedure Codes Cardiac Catheterization Procedure 1: Cardiovascular Cath Procedures: 48158 Coronaries and LHC (+/-LV) Moderate Sedation Procedure 1: Sedation/Anesthesia: 81675 Mod Sedation by the same physician;Init15 Min Child Age 5 & Up Procedure 2: Sedation/Anesthesia: 57877 Mod Sedation by the same physician; Ea [id number] Minutes Stenting Procedure 1: Cardiovascular Stent Procedures: 19108 Perc transluminal revascularization of acute sub/total occl, aMI PG Care Time/CCT Total # of Minutes Spent Total Time Spent with Patient: Total time spent is greater than 50% in coordination of care (as documented) at patient's floor/unit and/or counseling patient:
[2023-08-17 02:15] LABS: Basophils # (auto) 0.02 K/uL (0.00-0.20); Basophils % (auto) 0.2 %; Eosinophils # (auto) 0.01 K/uL (0.00-0.50); Eosinophils % (auto) 0.1 %; Hematocrit (blood only) 37.7 % (37.0-47.0); Immature Granulocytes # (auto) 0.03 K/uL (0.01-0.20); Immature Granulocytes % (auto) 0.3 %; Lymphocytes # (auto) 1.57 K/uL (1.20-3.40); Lymphocytes % (auto) 15.3 %; Mean Corpuscular Hemoglobin 29.7 pg (25.0-34.0); Mean Corpuscular Hgb Conc 34.5 g/dL (32.0-36.0); Mean Corpuscular Volume 86.1 fL (80.0-100.0); Mean Platelet Volume 9.6 fL (9.4-12.4); Monocytes # (auto) 1.26 K/uL (0.11-0.59); Monocytes % (auto) 12.3 %; Neutrophils # (auto) 7.37 K/uL (1.40-6.50); Neutrophils % (auto) 71.8 %; Platelet Count 224 K/uL (130-400); RDW Coefficient of Variation 14.4 % (11.5-14.5); RDW Standard Deviation 45.4 fL (36.4-46.3); Red Blood Count 4.38 M/uL (4.20-5.40); White Blood Count 10.26 K/ul (4.8-10.8)
[2023-08-17 02:28] LABS: BUN Creatinine Ratio 21.8 (10-20); Calcium 8.6 mg/dl (8.6-10.3); Creatinine Clr Calc Pharmacy 60.8 ml/min; Est GFR (African American) 100.5 ml/min; Est GFR (Non-African American) 86.7 ml/min; Potassium 3.8 mmol/L (3.5-5.1)
--- NOTE | 2023-08-17 05:42 | Electrocardiogram Report ---
Test Reason : Blood Pressure : / mmHG Vent. Rate : 104 BPM Atrial Rate : 104 BPM P-R Int : 146 ms QRS Dur : 076 ms QT Int : 352 ms P-R-T Axes : 055 -85 054 degrees QTc Int : 462 ms Sinus tachycardia Left axis deviation ST elevation, consider anterior injury pattern Anterior infarct , age undetermined Abnormal ECG When compared with ECG of 06-AUG-2023 15:59, ST elevation now present in anterior and lateral leads Confirmed by Asa Hensley ([id number]) on 08/17/2023 5:42:37 AM Referred By: Confirmed By:Asa Hensley
--- NOTE | 2023-08-17 05:43 | Electrocardiogram Report ---
Test Reason : Blood Pressure : / mmHG Vent. Rate : 104 BPM Atrial Rate : 104 BPM P-R Int : 142 ms QRS Dur : 078 ms QT Int : 330 ms P-R-T Axes : 053 -85 048 degrees QTc Int : 433 ms Sinus tachycardia Left anterior fascicular block Anterolateral infarct (cited on or before 16-AUG-2023) ST elevation, consider anterolateral injury pattern Abnormal ECG When compared with ECG of 16-AUG-2023 10:12, No significant change was found Confirmed by Asa Hensley ([id number]) on 08/17/2023 5:43:04 AM Referred By: Confirmed By:Asa Hensley
[2023-08-17] MEDS: LOSARTAN POTASSIUM 25 MG TAB PO SCH (07:48)
[2023-08-17] MEDS: CLOPIDOGREL BISULFATE 300 MG TAB PO ONE (07:48)
[2023-08-17] MEDS: HEPARIN SOD 5,000 UNIT/0.5 ML VIAL SQ SCH (07:49)
[2023-08-17] MEDS: LOVASTATIN 20 MG TAB PO SCH (07:49)
[2023-08-17] MEDS: ASPIRIN 81 MG ECTAB PO SCH (07:49)
[2023-08-17] MEDS: PANTOprazole 40 MG TAB PO SCH (07:50)
[2023-08-17] MEDS: traMADol HCL 50 MG TABLET PO SCH (07:52)
[2023-08-17] MEDS ORDERED: AMIODARONE IV BOLUS & DRIP IV STA (08:35)
[2023-08-17] MEDS ORDERED: STAT IV Infusion **Titration per Protocol STA (08:35)
[2023-08-17] MEDS ORDERED: 0.2 MICRON FILTER SET 1 EACH IV ONE (08:45)
--- NOTE | 2023-08-17 08:47 | Cardiology Progress Note ---
Date of Service August 17, 2023 Assessment & Plan (1) ST elevation (STEMI) myocardial infarction: (2) Benign essential hypertension: (3) Cardiomyopathy: (4) Atrial fibrillation: Plan 1. Acute coronary syndrome: She presented with markedly elevated biomarkers and acute occlusion of the distal left anterior descending. She underwent successful PCI and is on dual anti-platelet therapy. No current symptoms of chest discomfort. Her neck pain does not appear to be an anginal equivalent. Beta-blockade started yesterday. ARB ordered this morning. 2. Cardiomyopathy: Noted to have reduced LV systolic function of unknown chronicity. . No evidence of pulmonary edema on exam. No symptoms of decompensated heart failure. Beta-blockade and ARB initiated. 3. Atrial fibrillation: No prior diagnosis of atrial fibrillation. She has been cycling in and out fairly rapidly throughout the course of the morning. Fortunately, no symptoms. Unclear if this is related to her acute coronary syndrome or she has had asymptomatic atrial fibrillation over time. In any event, given the rapid cycling between sinus and atrial fibrillation as well as the associated high heart rates I think starting an amiodarone infusion for now would be reasonable. Perhaps this could be re-evaluated in the outpatient setting in several weeks. I think we will also need to initiate anticoagulation. Ideally she would not be on triple therapy but I think she will need to be for few weeks at least. 4. Hypertension: Blood pressure actually on the lower side here in the hospital. We will watch her response to beta blockade, amiodarone and losartan. 5. Hyperlipidemia: We will change her lovastatin to high-intensity atorvastatin. Admission and Anticipated Discharge Date Admission Date: August 16, 2023 Subjective This morning the patient claimed he feeling well. She denies any symptoms of chest discomfort or breathing difficulty. No dizziness or lightheadedness. No sense of palpitation or racing heartbeat. No discomfort in the right hand or the right radial access site. She continues to have some neck pain which she feels is improving. She admits to being somewhat confused. Review of Systems Review of Systems: Per HPI Physical Exam Physical Exam: She is alert and oriented x3. Forgetful at times. Mood affect appear normal. She answered all questions appropriately. HEENT: Sclerae are anicteric. Pupils are equal and reactive to light and accommodation. Extraocular movements were intact. Neuro: Cranial nerves intact Lungs: Lungs are clear to auscultation bilaterally. There are no rales wheezes or rhonchi. She has normal respiratory effort without use of accessory muscles. There is normal pulmonary excursion. Cardiac: The rhythm was regular. S1 and S2 were normal. There are no murmurs on examination. The PMI was not markedly displaced on palpation. Extremities: Patient has bilateral radial pulses that are equal in intensity. There is no evidence cyanosis or clubbing. There was no evidence of significant peripheral edema bilaterally. Good perfusion of the right hand. Skin: There are no rashes noted on examination today. Results & Data Vital Signs (Past 12 Hours) Vital Signs Temp Pulse Pulse Resp BP Pulse Ox O2 Del Method 08/17/23 07:49 36.7 C 83 20 102/66 95 Room Air 08/17/23 03:27 36.6 C 72 16 105/64 94 Room Air 08/16/23 23:22 62 08/16/23 23:11 36.7 C 75 16 95/58 L 95 Room Air Laboratory Results Abnormal Lab Results 08/16/23 08/16/23 08/16/23 09:45 10:08 10:25 WBC 12.11 H RBC 5.20 Hgb 15.2 Hct 45.3 MCV 87.1 MCH 29.2 MCHC 33.6 RDW Std Deviation 46.4 H RDW Coeff of Gloria 14.6 H Plt Count 302 MPV 9.7 Immature Gran % (Auto) 0.3 Neut % (Auto) 73.9 Lymph % (Auto) 16.0 Pettis % (Auto) 9.6 Eos % (Auto) 0.0 Baso % (Auto) 0.2 Neut # (Auto) 8.95 H Lymph # (Auto) 1.94 Pettis # (Auto) 1.16 H Eos # (Auto) 0.00 Baso # (Auto) 0.02 Immature Gran # (Auto) 0.04 PT 11.1 INR 1.0 APTT 29 PTT Ratio 1.1 Activ Coag Time Kaolin Sodium 131 L Potassium 4.4 Chloride 94 L Carbon Dioxide 29 Anion Gap 8 BUN 17 Creatinine 0.83 Est Cr Clr Drug Dosing 40.3 Est GFR ( Amer) 75.6 Est GFR (Non-Af Amer) 65.2 BUN/Creatinine Ratio 20.5 H Glucose 120 H Lactate 2.1 H* Calcium 9.6 Magnesium 1.8 Total Bilirubin 0.8 AST 135 H ALT 41 Alkaline Phosphatase 83 Troponin I High Sens 70458.7 H* Total Protein 8.2 Albumin 4.0 Globulin 4.2 H Albumin/Globulin Ratio 1.0 Lipase 30 Procalcitonin 0.03 Urine Color Yellow Urine Appearance Cloudy A Urine pH 7.0 Ur Specific Kermit 1.013 Urine Protein Trace H Urine Glucose (UA) Negative Urine Ketones Negative Urine Blood Negative Urine Nitrite Positive A Urine Bilirubin Negative Urine Urobilinogen Negative Ur Leukocyte Esterase Trace H Urine WBC (Auto) 6-10 H Urine RBC (Auto) 0-2 U Hyaline Cast (Auto) 0-2 U Epithel Cells (Auto) 0-2 Urine Bacteria (Auto) 4+ H 08/16/23 08/16/23 08/16/23 11:38 11:50 11:57 WBC RBC Hgb Hct MCV MCH MCHC RDW Std Deviation RDW Coeff of Gloria Plt Count MPV Immature Gran % (Auto) Neut % (Auto) Lymph % (Auto) Pettis % (Auto) Eos % (Auto) Baso % (Auto) Neut # (Auto) Lymph # (Auto) Pettis # (Auto) Eos # (Auto) Baso # (Auto) Immature Gran # (Auto) PT INR APTT PTT Ratio Activ Coag Time Kaolin 550 H 0 L 0 L Sodium Potassium Chloride Carbon Dioxide Anion Gap BUN Creatinine Est Cr Clr Drug Dosing Est GFR ( Amer) Est GFR (Non-Af Amer) BUN/Creatinine Ratio Glucose Lactate Calcium Magnesium Total Bilirubin AST ALT Alkaline Phosphatase Troponin I High Sens Total Protein Albumin Globulin Albumin/Globulin Ratio Lipase Procalcitonin Urine Color Urine Appearance Urine pH Ur Specific Kermit Urine Protein Urine Glucose (UA) Urine Ketones Urine Blood Urine Nitrite Urine Bilirubin Urine Urobilinogen Ur Leukocyte Esterase Urine WBC (Auto) Urine RBC (Auto) U Hyaline Cast (Auto) U Epithel Cells (Auto) Urine Bacteria (Auto) 08/16/23 08/16/23 08/17/23 14:42 19:45 02:01 WBC 10.26 RBC 4.38 Hgb 13.0 Hct 37.7 MCV 86.1 MCH 29.7 MCHC 34.5 RDW Std Deviation 45.4 RDW Coeff of Gloria 14.4 Plt Count 224 MPV 9.6 Immature Gran % (Auto) 0.3 Neut % (Auto) 71.8 Lymph % (Auto) 15.3 Pettis % (Auto) 12.3 Eos % (Auto) 0.1 Baso % (Auto) 0.2 Neut # (Auto) 7.37 H Lymph # (Auto) 1.57 Pettis # (Auto) 1.26 H Eos # (Auto) 0.01 Baso # (Auto) 0.02 Immature Gran # (Auto) 0.03 PT INR APTT PTT Ratio Activ Coag Time Kaolin Sodium 128 L Potassium 3.8 Chloride 98 Carbon Dioxide 23 Anion Gap 7 BUN 12 Creatinine 0.55 L Est Cr Clr Drug Dosing 60.8 Est GFR ( Amer) 100.5 Est GFR (Non-Af Amer) 86.7 BUN/Creatinine Ratio 21.8 H Glucose 99 Lactate 4.0 H* Calcium 8.6 Magnesium Total Bilirubin AST ALT Alkaline Phosphatase Troponin I High Sens 06726.4 H* D 57564.4 H* D 24122.3 H* D Total Protein Albumin Globulin Albumin/Globulin Ratio Lipase Procalcitonin Urine Color Urine Appearance Urine pH Ur Specific Kermit Urine Protein Urine Glucose (UA) Urine Ketones Urine Blood Urine Nitrite Urine Bilirubin Urine Urobilinogen Ur Leukocyte Esterase Urine WBC (Auto) Urine RBC (Auto) U Hyaline Cast (Auto) U Epithel Cells (Auto) Urine Bacteria (Auto) Diagnostic Findings Echocardiogram 08/16/2023: Mildly reduced LV systolic function with ejection fraction of 35-40%. Apical akinesis. No significant valvular heart disease. PG Care Time/CCT Total # of Minutes Spent Total Time Spent with Patient: Total time spent is greater than 50% in coordination of care (as documented) at patient's floor/unit and/or counseling patient: Coding Level of Care Code 57978 SUB INP/OBS CARE 3/50MIN Diagnoses ST elevation (STEMI) myocardial infarction I21.02 Involved coronary artery: LAD coronary artery Benign essential hypertension I10 Cardiomyopathy I42.9 Atrial fibrillation I48.91 (1) ST elevation (STEMI) myocardial infarction Involved coronary artery: LAD coronary artery Qualified Code(s): I21.02 - ST elevation (STEMI) myocardial infarction involving left anterior descending coronary artery
[2023-08-17] MEDS ORDERED: CLOPIDOGREL BISULFATE 75 MG TAB PO SCH (09:00)
[2023-08-17] MEDS ORDERED: LOVASTATIN 20 MG TAB PO SCH (09:00)
[2023-08-17] MEDS: AMIODARONE / D5W 150 MG/100 ML BAG IV ONE (09:04)
[2023-08-17] MEDS: AMIODARONE / D5W 360 MG/200 ML BAG IV ONE (09:09)
--- NOTE | 2023-08-17 09:38 | Hospitalist Progress Note ---
Date of Service August 17, 2023 Assessment & Plan (1) ACS (acute coronary syndrome): Plan: ACS with STEMI - Acute/stable/high complexity EKG w/ lateral ST elevations compared to prior Troponin 17,000 --> 42,500 --> 19,456 S/p PCI to distal LAD by Dr. Quintana on 08/15, loaded with ASA and Plavix Started low dose Lopressor 12.5mg BID and Losartan 12.5mg daily, Lovastatin changed to Atorvastatin 40mg daily - Echo with reduced LVEF 35-40%, apical akinesis, mid septal/anterior hypokinesis (2) Atrial fibrillation: Plan: Acute/new onset/stable - Cardiology on consult, appreciate input by Dr. Call - Initiated Amiodarone gtt, starting Eliquis 2.5mg BID for stroke prophylaxis - Continue low dose Lopressor (3) UTI (urinary tract infection): Plan: Acute/stable Leukocytosis of 12.11, several days of dark and foul-smelling urine with increased frequency on admit UA grossly infected, urine Cx with prelim GNB Cipro initiated given h/o hives to PCN, however, in light of Amiodarone infusion, d/c Cipro and place on Rocephin 1g IV daily, first dose now - No prior h/o anaphylaxis - Monitor for s/sx of infection of which can treat with Benadryl and Solumedrol - Follow urine culture once finalized and tailor abx accordingly (4) C2 cervical fracture: Plan: Acute/stable - Likely occurred at the time of her recent fall 10 days ago - Comminuted fracture, nondisplaced type III odontoid fracture - Discussed with Dr. 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 dissection - PT/OT/CUSTOMER SUPPORT SPECIALIST eval and treat (7) Mild neurocognitive disorder: Plan: Mild neurocognitive impairment Last slums exam with a score of 21/30, stable from prior of and consistent with mild neurocognitive impairment (8) Hyponatremia: Plan: Chronic - Baseline Na 130-135, today is 128 - This has been a chronic issue dating back to 2018 - Check urine and serum osmolality and urine sodium - Fluid restrict, suspect SIADH with drop secondary to receiving IVF on 08/15 Plan Code status: DNR/DNI. Plan as outlined above. AM labs ordered. This case required high medical decision making and time for this encounter including face to face, thorough review of lab results, imaging, admission and cardiology notes, and discussion with specialists took 53 minutes. Plan discussed w/ Dr. Timmons who is in agreement. Admission and Anticipated Discharge Date Admission Date: August 16, 2023 Lorenza Romero was seen and examined this morning, she is resting comfortably in bed. She was admitted yesterday with ACS/STEMI and underwent successful PCI by Dr. Quintana to the distal LAD for 100% occlusion. Today she is experiencing some confusion per nursing staff. She is awake and alert, she is oriented to self and time. She knows she is in the hospital but does not correctly name the hospital. Per nursing, she pulled out her scanlon overnight. She was seen this AM by cardiology, noted to have some afib and was started on an Amiodarone gtt. Review of Systems 2 Review of Systems: All systems reviewed and are unremarkable except as noted in HPI and below. +Confusion Denies fever, chills, fatigue, headache, nasal congestion, sore throat, cough, chest pain, shortness of breath, palpitations, orthopnea, PND, abdominal pain, n/v/d, constipation, dysuria, hematuria, frequency, back pain, joint pain or swelling, easy bruising or bleeding, skin lesions or rashes. Physical Exam 2 Physical Exam: GENERAL: 83 yo Well-developed, well-nourished elderly F. NAD. LUNGS: Clear to auscultation bilaterally. No W/R/R. CARDIOVASCULAR: S1 S2 irreg ABDOMEN: Soft, non-tender and non-distended. BS normoactive x 4 quad. EXTREMITIES: No edema. Non-tender. Peripheral pulses +2/4. NEUROLOGIC: A&O x2. Some dysarthria noted, but no other neuro deficits appreciated. -pronator drift. PSYCHIATRIC: Cooperative. Appropriate mood and affect. SKIN: Warm, dry, intact. No rashes or lesions. right radial cath site covered with tegaderm. No active bleeding. Results & Data Results & Data Vital Signs (Past 12 Hours) Vital Signs Temp Pulse Pulse Resp BP Pulse Ox O2 Del Method 08/17/23 07:49 36.7 C 83 20 102/66 95 Room Air 08/17/23 03:27 36.6 C 72 16 105/64 94 Room Air 08/16/23 23:22 62 08/16/23 23:11 36.7 C 75 16 95/58 L 95 Room Air Laboratory Results 08/17/23 02:01 08/17/23 02:01 PG Care Time/CCT Total # of Minutes Spent Total Time Spent with Patient: Total time spent is greater than 50% in coordination of care (as documented) at patient's floor/unit and/or counseling patient: Coding Level of Care Code 76216 SUB INP/OBS CARE 3/50MIN Diagnoses ACS (acute coronary syndrome) I24.9 Paroxysmal atrial fibrillation I48.0 Atrial fibrillation type: paroxysmal UTI (urinary tract infection) N39.0 Urinary tract infection type: acute cystitis Other closed nondisplaced fracture of second cervical vertebra, initial encounter S12.191A Encounter type: initial encounter Fracture type: closed Fracture morphology: other fracture Fracture alignment: nondisplaced Vertebral artery dissection I77.74 Dysarthria R47.1 Mild neurocognitive disorder G31.84 Hyponatremia E87.1 (2) Atrial fibrillation Atrial fibrillation type: paroxysmal Qualified Code(s): I48.0 - Paroxysmal atrial fibrillation (3) UTI (urinary tract infection) Urinary tract infection type: acute cystitis (4) C2 cervical fracture Encounter type: initial encounter Fracture type: closed Fracture morphology: other fracture Fracture alignment: nondisplaced Qualified Code(s): S12.191A - Other nondisplaced fracture of second cervical vertebra, initial encounter for closed fracture
[2023-08-17] MEDS: OPTIRAY 320 150ml IV ONE (09:57)
--- NOTE | 2023-08-17 10:28 | CT Scan Report ---
CT SCAN OF THE CERVICAL SPINE CLINICAL HISTORY: Recent fall. Neck pain. COMPARISON STUDY: CT of the cervical spine dated 08/06/2023. TECHNIQUE: CT scan of the cervical spine is performed from the skull base to the upper thoracic spine . Images are reviewed in the axial, sagittal, and coronal planes. IV contrast was not administered fo r this examination. A dose lowering technique was utilized adhering to the principles of ALARA. CT DOSE: 1501.44 mGy.cm FINDINGS: Skeletal structures: The skeletal structures are osteopenic. There is a comminuted nondisplaced type III fracture of the odontoid process. This extends into the right lateral body and transverse process of C2, and likely involves the right transverse foramen at this level. Vertebral body height and ali gnment are maintained. There is straightening of the cervical lordosis. Anterior osteophytes are seen throughout. The odontoid process and lateral masses are intact. The atlantoaxial articulation is pre served noting productive degenerative change. The spinous processes appear intact. Intervertebral discs: There is moderate disc space narrowing at C3-C4, C4-C5, and C5-C6. Mild narrowi ng is seen at the remaining cervical levels. Central canal: Posterior disc osteophyte complexes are seen at all cervical levels between C2-C3 and C5-C6. This likely contributes to multilevel acquired compromise of the central canal. Soft tissues: The prevertebral and paraspinous soft tissues are within normal limits. There is athero sclerotic calcification of the carotid bulbs. Calvarium: The visualized calvarium at the skull base appears intact. Brain parenchyma: Partially visualized brain parenchyma at the skull base is within normal limits. Sinuses and mastoids: The visualized paranasal sinuses are clear. The mastoid air cells are well pneu matized. Lung apices: Clear as visualized. IMPRESSION: 1. There is a comminuted nondisplaced type III fracture of the odontoid process. 2. Fracture extends into the right body and transverse process of C2, likely involving the transverse foramen. 3. No additional acute fracture is identified. No subluxation is seen. 3. Osteopenia and spondylotic change as above. ACT 112: Negative or not required by law. Electronically signed by: Brandon Siegel M.D. 08/17/2023 10:26 AM
--- NOTE | 2023-08-17 10:46 | CT Scan Report ---
UNENHANCED CT OF THE BRAIN; CT ANGIOGRAM OF THE BRAIN; CT ANGIOGRAM OF THE NECK CLINICAL HISTORY: Recent fall. Headache and weakness. COMPARISON STUDY: CT of the brain dated 08/06/2023. CT of the cervical spine performed concurrently o n 08/17/2023. TECHNIQUE: Unenhanced axial CT scan of the brain is performed. Subsequently, following the IV adminis tration of 120 of Optiray 320, CT angiogram of the head and neck was performed from the aortic arch t o the vertex. Images are reviewed in the axial, sagittal, and coronal planes. 3-D MIPS images are cre ated and assessed. IV contrast was administered without complication. All measurements were calculate d based on NASCET criteria. A dose lowering technique was utilized adhering to the principles of ALA RA. FINDINGS: Brain parenchyma: There is age-related involutional change noting moderate subcortical and periventri cular microangiopathic disease. There are large perivascular spaces versus chronic lacunar infarcts s een in the basal ganglia bilaterally. There is no hemorrhage, mass effect, or evidence of acute rajeev torial ischemia by CT criteria. There is no evidence of enhancing mass lesion on the angiogram phase images. The ventricles, sulci, and cisterns are prominent secondary to involutional change. Zayas-whit e matter differentiation is preserved. No extra-axial fluid collection is seen. Thoracic aorta: There is atherosclerotic calcification of the thoracic aorta. Visualized portions of the thoracic aorta are normal in caliber. The aortic arch demonstrates standard 3-vessel anatomy. Right carotid arterial system: The right common carotid artery is widely patent, as are the right int ernal and external carotid arteries. Calcified plaque is noted in the carotid bulb. Left carotid arterial system: The left common carotid artery is widely patent, as are the left internist medical doctor md al and external carotid arteries. Calcified plaque is seen in the carotid bulb. Vertebral arteries: The right vertebral artery is dominant and patent. There is focal narrowing of th e proximal to mid vertebral artery at the level of C6 seen on axial image #151. There is also focal n arrowing and irregularity of the right vertebral artery at the level of C1 seen on axial image #20 an d 62. This is located just above the C2 fracture, and although this could potentially be severe steno sis and underlying dissection is not excluded. The origin of the left vertebral artery is patent. The remainder of the left vertebral artery is occluded beginning at the level of T1 as seen on image #10 7. There is segmental reconstitution of flow at C1 seen on image #263. The T bars occluded at the sku ll base. Subclavian arteries: Widely patent bilaterally. Intracranial vasculature: There is atherosclerotic calcification of the cavernous carotid arteries. T he internal carotid arteries are patent at the skull base, as are the anterior and middle cerebral ar teries bilaterally. The basilar artery is patent. There is reconstitution of flow in the left vertebr al artery at the skull base, likely via retrograde flow. The right vertebral artery is dominant and p atent at the skull base. There is no aneurysm or focus of high-grade stenosis seen throughout the int racranial circulation. Jugular veins: Patent bilaterally. Dural sinuses: Patent. Lung apices: There is a 3 mm right upper lobe pulmonary nodule seen on image #63. Partially visualize d upper lobe lung parenchyma otherwise appears clear. Soft tissues: The visualized pharyngeal soft tissues are normal in appearance noting angiographic pha se technique. The oropharyngeal airway appears widely patent. The salivary and thyroid glands are nor mal in appearance. No cervical lymphadenopathy is seen. Skeletal structures: The skeletal structures are osteopenic. The calvarium appears intact. There is a comminuted type III fracture of the odontoid process. Fracture involves the right body and transvers e process of C2, and likely involves the right transverse foramen at C2. There is multilevel cervical spondylosis. Orbits: The bony orbits are intact. Orbital contents are normal as visualized noting bilateral ocular lens implants. Sinuses and mastoids: There is mild mucosal thickening within the ethmoid sinuses. The remaining para nasal sinuses are clear. The mastoid air cells are well pneumatized. IMPRESSION: 1. There is no hemorrhage, mass effect, or evidence of acute territorial ischemia by CT criteria. 2. Type III fracture of the odontoid process as above which likely involves the right transverse fora men at C2. 3. The right vertebral artery is patent. There is focal narrowing of the proximal to mid right verteb ral artery at the level of C6, as well as focal narrowing and irregularity of the right vertebral art afshin at the level of C1 above the fracture site. Although these findings could simply represent stenos is, the appearance is suspicious for underlying dissection. 4. There is near complete thrombosis of the cervical left vertebral artery as above. This is age inde terminant, and underlying dissection would be impossible to exclude. Flow is reconstituted above the skull base, likely via retrograde flow. 5. Otherwise unremarkable CT angiogram of the brain. 6. The carotid arteries are widely patent bilaterally. 7. There is a 3 mm right upper lobe pulmonary nodule. A follow-up chest CT in 3-4 months time is gilberto mmended for reassessment and full evaluation of the thorax. ACT 112: Negative or not required by law. Electronically signed by: Brandon Siegel M.D. 08/17/2023 10:44 AM
[2023-08-17] MEDS: cefTRIAXone SODIUM 1,000 MG/50 ML BAG IV SCH (10:48)
[2023-08-17] MEDS: AMIODARONE / D5W 360 MG/200 ML BAG IV SCH (14:33)
[2023-08-17] MEDS: APIXABAN 2.5 MG TAB PO SCH (20:14)
[2023-08-17] MEDS: OLANZapine 10 MG/2.1 ML SDV IM STA (23:36)
[2023-08-18 06:08] LABS: Basophils # (auto) 0.02 K/uL (0.00-0.20); Basophils % (auto) 0.2 %; Eosinophils # (auto) 0.07 K/uL (0.00-0.50); Eosinophils % (auto) 0.7 %; Hemoglobin 13.1 g/dl (12.0-16.0); Immature Granulocytes # (auto) 0.03 K/uL (0.01-0.20); Immature Granulocytes % (auto) 0.3 %; Lymphocytes # (auto) 2.31 K/uL (1.20-3.40); Lymphocytes % (auto) 23.6 %; Mean Corpuscular Hemoglobin 29.8 pg (25.0-34.0); Mean Corpuscular Hgb Conc 34.5 g/dL (32.0-36.0); Mean Corpuscular Volume 86.6 fL (80.0-100.0); Monocytes # (auto) 1.03 K/uL (0.11-0.59); Monocytes % (auto) 10.5 %; Neutrophils # (auto) 6.31 K/uL (1.40-6.50); Neutrophils % (auto) 64.7 %; Platelet Count 241 K/uL (130-400); RDW Coefficient of Variation 14.4 % (11.5-14.5); RDW Standard Deviation 45.3 fL (36.4-46.3); Red Blood Count 4.39 M/uL (4.20-5.40); White Blood Count 9.77 K/ul (4.8-10.8)
[2023-08-18 06:17] LABS: BUN Creatinine Ratio 19.7 (10-20); Calcium 8.5 mg/dl (8.6-10.3); Creatinine Clr Calc Pharmacy 48.4 ml/min; Est GFR (African American) 94.7 ml/min; Est GFR (Non-African American) 81.7 ml/min
--- NOTE | 2023-08-18 07:21 | Electrocardiogram Report ---
Test Reason : Blood Pressure : / mmHG Vent. Rate : 138 BPM Atrial Rate : 147 BPM P-R Int : 000 ms QRS Dur : 088 ms QT Int : 260 ms P-R-T Axes : 000 -81 -35 degrees QTc Int : 393 ms Atrial fibrillation with rapid ventricular response Left anterior fascicular block Anterolateral infarct (cited on or before 16-AUG-2023) Abnormal ECG When compared with ECG of 16-AUG-2023 10:27, Atrial fibrillation has replaced Sinus rhythm ST now depressed in Inferior leads Nonspecific T wave abnormality, worse in Inferior leads Confirmed by Luis Call ([id number] on 08/18/2023 7:21:37 AM Referred By: Olivier Bowen Confirmed By:Pablito Call
--- NOTE | 2023-08-18 07:52 | Consultation ---
Date of Consultation August 18, 2023 Assessment & Plan (1) C2 cervical fracture: Bubba is almost 2 weeks status post fall with subsequent type III nondisplaced odontoid fracture that extends into C2. This case has been discussed with Dr. Dove yesterday. Current treatment plan is conservative. It is recommended that she wears her [place] collar at all times. May loosen when eating. No lifting over 5 pounds. Ambulate ad li. Recommend discussion with vascular surgery regarding vertebral artery dissection History of Present Illness Attending Physician: Alonzo French MD History of Present Illness This is a 83-year-old female who sustained a fall 10 to 14 days ago down the steps. Her relays that she missed the last 4-5 steps and landed on the landing. She did have immediate neck pain. She went to the ER on 08/[address] scan was performed and read as negative. She had continued pain in the neck. She followed up with her family physician where her muscle relaxants were prescribed. She these were not controlling her symptoms so she called back and a stronger medication was ordered as well as a pain medicine. Again pain persisted. She then went back to the ER and was subsequently admitted now with an acute CA. She lives at home with her . She ambulates independently. States that she has neck pain only. Denies any upper extremity pain, paresthesia, numbness or weakness Allergies Allergy/AdvReac Type Severity Reaction Status Date / Time amoxicillin [From Augmentin] Allergy Unknown Verified 08/13/23 14:53 clavulanic acid Allergy Unknown Verified 08/13/23 14:53 [From Augmentin] doxycycline Allergy Unknown Verified 08/13/23 14:53 lisinopril Allergy Unknown vomitting Unverified 08/13/23 14:53 Penicillins Allergy Unknown HIVES Verified 08/13/23 14:53 grass pollen AdvReac Unknown Sneezing Verified 08/13/23 14:53 Home Medications Medication Instructions Recorded Confirmed Type cholecalciferol (vitamin D3) 50 2,000 unit PO QPM 11/14/17 08/16/23 History mcg (2,000 unit) capsule (Vitamin D3) multivitamin (Multiple Vitamins 1 tab PO QAM 11/14/17 08/16/23 History tablet) calcium carbonate 500 mg-vitamin 1 tab PO DAILY 02/24/19 08/16/23 History D3 5 mcg (200 unit) tablet (Calcium 500 + D) ipratropium bromide 42 mcg (0.06 2 spray intranasal TID #15 mL 03/20/23 08/16/23 Rx %) nasal spray lovastatin 20 mg tablet 20 mg PO QAM #90 tabs 04/15/23 08/16/23 Rx omeprazole 40 mg capsule,delayed 40 mg PO QAM #90 caps 05/13/23 08/16/23 Rx release ondansetron HCl 4 mg tablet 4 mg PO BID PRN nausea and 08/09/23 08/16/23 Rx vomiting 5 days #14 tabs cyclobenzaprine 10 mg tablet 10 mg PO TID #14 tabs 08/12/23 08/16/23 Rx meloxicam 7.5 mg tablet 7.5 mg PO BID #30 tabs 08/12/23 08/16/23 Rx tramadol 50 mg tablet 50 mg PO DAILY #7 tabs 08/12/23 08/16/23 Rx Patient History Medical History GERD (gastroesophageal reflux disease) Cardiac murmur Hyperlipidemia Surgical History History of tubal ligation History of dilatation and curettage History of colonoscopy History of tonsillectomy History of adenoidectomy History of cataract surgery R/L Family History Father Prostate cancer Mother Rheumatoid arthritis Osteoarthritis Denies family history of Ovarian cancer Myocardial infarction Breast cancer Colorectal cancer Social History Smoking Status: Never smoker Second Hand Exposure: No; Do You Dip or Chew Tobacco: No; Hx Alcohol Use: Yes Alcohol type: wine Alcohol Intake Frequency: 2-4 x/Month Hx Substance Use: No Preferred Language: Sinhala Communication Ability: Effective Visual Impairment: No Limitations Hearing Ability: Normal Aviation Electronic Warfare Operator Required: No Beliefs That Will Affect Care: Cheondoism marital status: Current Living Situation: Alone and Spouse current occupational status: retired How many Children do You have: 2 Feels Safe at Home: Yes Childhood Exposure to Second-Hand Smoke: Yes Diet: regular caffeine: Yes during the past year weight has: remained stable Dental Care, Regularly: Yes Physical Activity Frequency: 5-6 Times per Week Seatbelt Use: always Sunscreen Use: Yes Assistive Devices: Denture - Upper and Glasses Review of Systems Review of Systems: All systems reviewed & are unremarkable except as noted in HPI & below Physical Exam Physical Exam: Alert and oriented x 3 laying in bed in no acute distress [place] collar is intact Strength is 5/5 bilateral wrist extensors, wrist flexors, biceps, triceps, deltoid, finger intrinsics. No palpable step-offs of the posterior cervical spine Results & Data Vital Signs (Past 12 Hours) Vital Signs Temp Pulse Pulse Resp BP Pulse Ox O2 Del Method 08/18/23 07:22 36.3 C L 66 18 117/72 96 Room Air 08/18/23 04:01 36.6 C 67 18 128/75 95 Room Air 08/17/23 23:00 55 L 08/17/23 22:48 36.6 C 58 L 18 102/63 96 Room Air Diagnostic Findings [place], [place] [phone] CT Scan Report Patient: BUBBA VEGA Admit Date: 08/16/23 MR#: [id number] Address1: [address] [place] [address] Acct ID:[id number] Address2: Date: 1940 [facility] Zip: [place] [address] Age: 83 Location: 4W Sex: F Room/Bed: [facility] Att Phy: Justice Timmons MD Diagnosis: STEMI Liliana Phy: Rafael Lazo, ABBY, ROMEL Service Date: 08/17/23 Fam Phy: Interpreting Phy: Brandon Siegel MDAdmit Phy: Olivier Bowen MD Ordering Phy: Cindi Medina PA-C cc: ~ CT SCAN OF THE CERVICAL SPINE CLINICAL HISTORY: Recent fall. Neck pain. COMPARISON STUDY: CT of the cervical spine dated 08/06/2023. TECHNIQUE: CT scan of the cervical spine is performed from the skull base to the upper thoracic spine. Images are reviewed in the axial, sagittal, and coronal planes. IV contrast was not administered for this examination. A dose lowering technique was utilized adhering to the principles of ALARA. CT DOSE: 1501.44 mGy.cm FINDINGS: Skeletal structures: The skeletal structures are osteopenic. There is a comminuted nondisplaced type III fracture of the odontoid process. This extends into the right lateral body and transverse process of C2, and likely involves the right transverse foramen at this level. Vertebral body height and alignment are maintained. There is straightening of the cervical lordosis. Anterior osteophytes are seen throughout. The odontoid process and lateral masses are intact. The atlantoaxial articulation is preserved noting productive degenerative change. The spinous processes appear intact. Intervertebral discs: There is moderate disc space narrowing at C3-C4, C4-C5, and C5-C6. Mild narrowing is seen at the remaining cervical levels. Central canal: Posterior disc osteophyte complexes are seen at all cervical levels between C2-C3 and C5-C6. This likely contributes to multilevel acquired compromise of the central canal. Soft tissues: The prevertebral and paraspinous soft tissues are within normal limits. There is atherosclerotic calcification of the carotid bulbs. Calvarium: The visualized calvarium at the skull base appears intact. Brain parenchyma: Partially visualized brain parenchyma at the skull base is within normal limits. Sinuses and mastoids: The visualized paranasal sinuses are clear. The mastoid air cells are well pneumatized. Lung apices: Clear as visualized. IMPRESSION: 1. There is a comminuted nondisplaced type III fracture of the odontoid process. 2. Fracture extends into the right body and transverse process of C2, likely involving the transverse foramen. 3. No additional acute fracture is identified. No subluxation is seen. 3. Osteopenia and spondylotic change as above. ACT 112: Negative or not required by law. Electronically signed by: Brandon Siegel M.D. 08/17/2023 10:26 AM Dictated: 08/17/23 1017 Transcribed: 08/17/23 1017 [phone] Scan Report Patient: BUBBA VEGA Admit Date: 08/16/23 MR#: [id number] Address1: [address] [place] [address] Acct ID:[id number] Address2: Date: 1940 [facility] [address] Age: 83 Location: 4W Sex: F Room/Bed: [facility] Att Phy: Justice Timmons MD Diagnosis: STEMI Liliana Phy: Rafael Lazo, III, ROMEL Service Date: 08/17/23 Fam Phy: Interpreting Phy: Brandon Siegel [facility] Phy: Olivier Bowen MD Ordering Phy: Cindi Medina PA-C cc: ~ UNENHANCED CT OF THE BRAIN; CT ANGIOGRAM OF THE BRAIN; CT ANGIOGRAM OF THE NECK CLINICAL HISTORY: Recent fall. Headache and weakness. COMPARISON STUDY: CT of the brain dated 08/06/2023. CT of the cervical spine performed concurrently on 08/17/2023. TECHNIQUE: Unenhanced axial CT scan of the brain is performed. Subsequently, following the IV administration of 120 of Optiray 320, CT angiogram of the head and neck was performed from the aortic arch to the vertex. Images are reviewed in the axial, sagittal, and coronal planes. 3-D MIPS images are created and assessed. IV contrast was administered without complication. All measurements were calculated based on NASCET criteria. A dose lowering technique was utilized adhering to the principles of ALARA. FINDINGS: Brain parenchyma: There is age-related involutional change noting moderate subcortical and periventricular microangiopathic disease. There are large perivascular spaces versus chronic lacunar infarcts seen in the basal ganglia bilaterally. There is no hemorrhage, mass effect, or evidence of acute territorial ischemia by CT criteria. There is no evidence of enhancing mass lesion on the angiogram phase images. The ventricles, sulci, and cisterns are prominent secondary to involutional change. Zayas-white matter differentiation is preserved. No extra-axial fluid collection is seen. Thoracic aorta: There is atherosclerotic calcification of the thoracic aorta. Visualized portions of the thoracic aorta are normal in caliber. The aortic arch demonstrates standard 3-vessel anatomy. Right carotid arterial system: The right common carotid artery is widely patent, as are the right internal and external carotid arteries. Calcified plaque is noted in the carotid bulb. Left carotid arterial system: The left common carotid artery is widely patent, as are the left internal and external carotid arteries. Calcified plaque is seen in the carotid bulb. Vertebral arteries: The right vertebral artery is dominant and patent. There is focal narrowing of the proximal to mid vertebral artery at the level of C6 seen on axial image #151. There is also focal narrowing and irregularity of the right vertebral artery at the level of C1 seen on axial image #20 and 62. This is located just above the C2 fracture, and although this could potentially be severe stenosis and underlying dissection is not excluded. The origin of the left vertebral artery is patent. The remainder of the left vertebral artery is occluded beginning at the level of T1 as seen on image #107. There is segmental reconstitution of flow at C1 seen on image #263. The T bars occluded at the skull base. Subclavian arteries: Widely patent bilaterally. Intracranial vasculature: There is atherosclerotic calcification of the [place] us carotid arteries. The internal carotid arteries are patent at the skull base, as are the anterior and middle cerebral arteries bilaterally. The basilar artery is patent. There is reconstitution of flow in the left vertebral artery at the skull base, likely via retrograde flow. The right vertebral artery is dominant and patent at the skull base. There is no aneurysm or focus of high-grade stenos is seen throughout the intracranial circulation. Jugular veins: Patent bilaterally. Dural sinuses: Patent. Lung apices: There is a 3 mm right upper lobe pulmonary nodule seen on image #63. Partially visualized upper lobe lung parenchyma otherwise appears clear. Soft tissues: The visualized pharyngeal soft tissues are normal in appearance noting angiographic phase technique. The oropharyngeal airway appears widely patent. The salivary and thyroid glands are normal in appearance. No cervical lymphadenopathy is seen. Skeletal structures: The skeletal structures are osteopenic. The calvarium appears intact. There is a comminuted type III fracture of the odontoid process. Fracture involves the right body and transverse process of C2, and likely involves the right transverse foramen at C2. There is multilevel cervical spondylosis. Orbits: The bony orbits are intact. Orbital contents are normal as visualized noting bilateral ocular lens implants. Sinuses and mastoids: There is mild mucosal thickening within the ethmoid sinuses. The remaining paranasal sinuses are clear. The mastoid air cells are well pneumatized. IMPRESSION: 1. There is no hemorrhage, mass effect, or evidence of acute territorial ischemia by CT criteria. 2. Type III fracture of the odontoid process as above which likely involves the right transverse foramen at C2. 3. The right vertebral artery is patent. There is focal narrowing of the proximal to mid right vertebral artery at the level of C6, as well as focal narrowing and irregularity of the right vertebral artery at the level of C1 above the fracture site. Although these findings could simply represent stenosis, the appearance is suspicious for underlying dissection. 4. There is near complete thrombosis of the cervical left vertebral artery as above. This is age indeterminant, and underlying dissection would be impossible to exclude. Flow is reconstituted above the skull base, likely via retrograde flow. 5. Otherwise unremarkable CT angiogram of the brain. 6. The carotid arteries are widely patent bilaterally. 7. There is a 3 mm right upper lobe pulmonary nodule. A follow-up chest CT in 3- 4 months time is recommended for reassessment and full evaluation of the thorax. ACT 112: Negative or not required by law. Electronically signed by: Brandon Siegel M.D. 08/17/2023 10:44 AM Dictated: 08/17/23 1027 Transcribed: 08/17/23 1027 (1) C2 cervical fracture Encounter type: initial encounter Fracture alignment: nondisplaced Fracture morphology: other fracture Fracture type: closed Qualified Code(s): S12.191A - Other nondisplaced fracture of second cervical vertebra, initial encounter for closed fracture
[2023-08-18] MEDS: CLOPIDOGREL BISULFATE 75 MG TAB PO SCH (09:14)
[2023-08-18] MEDS: ATORVASTATIN 40 MG TAB PO SCH (09:14)
--- NOTE | 2023-08-18 09:19 | Cardiology Progress Note ---
Date of Service August 18, 2023 Assessment & Plan (1) ST elevation (STEMI) myocardial infarction: (2) Benign essential hypertension: (3) Cardiomyopathy: (4) Atrial fibrillation: Plan 1. Acute coronary syndrome: She presented with markedly elevated biomarkers and acute occlusion of the distal left anterior descending. She underwent successful PCI and is on dual anti-platelet therapy. No current symptoms of chest discomfort. Her neck pain now seems associated with the odontoid in cervical fracture. 2. Cardiomyopathy: Noted to have reduced LV systolic function of unknown chronicity. We will switch her metoprolol tartrate to succinate at an equal dosed. She will continue losartan 12.5 mg daily. 3. Atrial fibrillation: She seemed to do well over the course of the evening. Now back in atrial fibrillation this morning. However, I think we will stop her amiodarone infusion and start oral therapy. We will continue low-dose apixaban. 4. Hypertension: Good control currently. 5. Hyperlipidemia: Continue high-intensity atorvastatin. I will change her amiodarone to an oral dose. I think if she converts to sinus early this morning and has no additional episodes the she could be safely discharged from a cardiac standpoint. I would recommend amiodarone 400 mg twice daily for 1 week and then reduce dose to 200 mg daily. I think she can be discharged on metoprolol succinate 25 mg daily and losartan 12.5 mg daily Will continue apixaban 2.5 mg daily, clopidogrel and aspirin for the time being. Admission and Anticipated Discharge Date Admission Date: August 16, 2023 Subjective This morning patient was eating breakfast. She answered questions appropriately. She had no specific complaints. Some persistent neck pain but improved with use of the cervical collar for treatment of a nondisplaced odontoid fracture. Apparently she was quite agitated for a time last night. No sense of palpitation reported. No chest pain. No breathing difficulty. Review of Systems Review of Systems: Per HPI Physical Exam Physical Exam: She is alert and answered questions appropriately HEENT: Sclerae are anicteric. Pupils are equal and reactive to light and accommodation. Extraocular movements were intact. Neuro: Cranial nerves intact Lungs: Lungs are clear to auscultation bilaterally. There are no rales wheezes or rhonchi. She has normal respiratory effort without use of accessory muscles. There is normal pulmonary excursion. Cardiac: The rhythm was irregular. S1 and S2 were normal. There are no murmurs on examination. The PMI was not markedly displaced on palpation. Extremities: Patient has bilateral radial pulses that are equal in intensity. There is no evidence cyanosis or clubbing. There was no evidence of significant peripheral edema bilaterally. Skin: There are no rashes noted on examination today. Results & Data Vital Signs (Past 12 Hours) Vital Signs Temp Pulse Pulse Resp BP Pulse Ox O2 Del Method 08/18/23 07:22 36.3 C L 66 18 117/72 96 Room Air 08/18/23 04:01 36.6 C 67 18 128/75 95 Room Air 08/17/23 23:00 55 L 08/17/23 22:48 36.6 C 58 L 18 102/63 96 Room Air Laboratory Results Abnormal Lab Results 08/17/23 08/17/23 08/18/23 12:59 Unknown 05:22 WBC 9.77 RBC 4.39 Hgb 13.1 Hct 38.0 MCV 86.6 MCH 29.8 MCHC 34.5 RDW Std Deviation 45.3 RDW Coeff of Gloria 14.4 Plt Count 241 MPV 10.0 Immature Gran % (Auto) 0.3 Neut % (Auto) 64.7 Lymph % (Auto) 23.6 Rolette % (Auto) 10.5 Eos % (Auto) 0.7 Baso % (Auto) 0.2 Neut # (Auto) 6.31 Lymph # (Auto) 2.31 Rolette # (Auto) 1.03 H Eos # (Auto) 0.07 Baso # (Auto) 0.02 Immature Gran # (Auto) 0.03 Sodium 130 L Potassium 4.0 Chloride 98 Carbon Dioxide 23 Anion Gap 9 BUN 13 Creatinine 0.66 Est Cr Clr Drug Dosing 48.4 Est GFR ( Amer) 94.7 Est GFR (Non-Af Amer) 81.7 BUN/Creatinine Ratio 19.7 Glucose 103 H Osmolality 267 L Calcium 8.5 L Urine Osmolality 391 L Ur Random Sodium 23 PG Care Time/CCT Total # of Minutes Spent Total Time Spent with Patient: Total time spent is greater than 50% in coordination of care (as documented) at patient's floor/unit and/or counseling patient: Coding Level of Care Code 62722 SUB INP/OBS CARE 2/35MIN Diagnoses ST elevation (STEMI) myocardial infarction I21.02 Involved coronary artery: LAD coronary artery Benign essential hypertension I10 Cardiomyopathy I42.9 Paroxysmal atrial fibrillation I48.0 Atrial fibrillation type: paroxysmal (1) ST elevation (STEMI) myocardial infarction Involved coronary artery: LAD coronary artery Qualified Code(s): I21.02 - ST elevation (STEMI) myocardial infarction involving left anterior descending coronary artery (4) Atrial fibrillation Atrial fibrillation type: paroxysmal Qualified Code(s): I48.0 - Paroxysmal atrial fibrillation
[2023-08-18] MEDS ORDERED: NITROGLYCERIN SL 0.4 MG/TAB TAB SL PRN (13:38)
[2023-08-18] MEDS ORDERED: OLANZapine 10 MG/2.1 ML SDV IM PRN (13:38)
[2023-08-18] MEDS: ONDANSETRON INJ 2 MG/ML 2 ML VIAL IV PRN (15:39)
--- NOTE | 2023-08-18 16:31 | Hospitalist Progress Note ---
Date of Service August 18, 2023 Assessment & Plan (1) ACS (acute coronary syndrome): Plan: ACS with STEMI . Cardiology consultation and recommendations appreciated. She underwent left heart catheterization on August 15 with PCI placed in the distal LAD. She is now on amiodarone, metoprolol succinate, losartan, atorvastatin, Eliquis, aspirin, Plavix. Telemetry.. Echo reveals reduced LVEF 35-40%, apical akinesis, mid septal/anterior hypokinesis (2) Atrial fibrillation: Plan: Now with controlled rate. Amiodarone drip has been switched to oral dosing. She is now on low-dose Eliquis. Telemetry. Appreciate cardiology consultation and recommendations. Rate control with metoprolol succinate and amiodarone (3) UTI (urinary tract infection): Plan: E. coli isolated. She is on intravenous Rocephin, day 2. (4) C2 cervical fracture: Plan: Recent. Nondisplaced. Appreciate orthopedic spine surgery consultation and recommendations. She is now in a hard cervical collar. 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 No acute intervention necessary at this time (6) Dysarthria: Plan: Resolved. No evidence of acute CVA (7) Mild neurocognitive disorder: Plan: She appears to have baseline dementia. She is having episodes of sundowning psychosis. IM Zyprexa as needed. Supportive care. (8) Hyponatremia: Plan: Mild. Associated with hyperosmolarity. Fluid restriction. Serial labs . Probable SIADH Plan OT and PT assessments pending. The states there is no way he can take her home. It appears she will need placement. Admission and Anticipated Discharge Date Admission Date: August 16, 2023 Subjective Alert and oriented. She has recurrent nausea but denies recurrent chest pain. E. coli isolated in the urine. She remains on Rocephin, day 2. Cardiac echo reveals ejection fraction down to 35% cardiology consultation appreciated. She underwent left heart catheterization on August 15 with PCI to the distal LAD. She is now on Toprol-XL, losartan, atorvastatin, amiodarone, Eliquis, aspirin, Plavix. Serum osmolarity is low at 267 and she is on fluid restriction. Metoprolol tartrate has been switched to metoprolol succinate and amiodarone drip has been switched to oral dosing. [place] psychosis occurred last night. IM Zyprexa as needed has been ordered. is at the bedside. He says there is no way she can go home with him. OT and PT assessments are pending. It appears she will need placement. Review of Systems 2 Review of Systems: Constitutional-no fever or chills ENT-no blurred vision, no double vision, no epistaxis, no sore throat Respiratory-no cough, no wheezing, no shortness of breath Cardiac-no palpitations, no chest pain, no syncope GI-intermittent nausea. No vomiting, diarrhea, melena, hematochezia -no urinary retention, no urinary incontinence, no dysuria, no hematuria Musculoskeletal-no joint pain, no muscle tenderness Skin-no bruising, no rashes, no pruritus Neuro-no isolated weakness, no paresthesia Psych-no depression, no anxiety Physical Exam 2 Physical Exam: General-alert and oriented x3, no fever, no chills HEENT-head atraumatic and normocephalic, pupils equal and reactive to light, extraocular muscles intact Neck-hard cervical collar is in place Chest-clear to auscultation. No rales, wheezing or rhonchi Cardiac-irregular rhythm with controlled rate. Normal S1 and S2 Abdomen-normal bowel sounds, no hepatosplenomegaly Extremities-no cyanosis, clubbing, or edema Neuro-cranial nerves II through XII intact, motor and sensory function within normal limits, strength symmetrical and consistent with age, no focal deficits Psych-normal affect, normal mood Results & Data Results & Data Vital Signs (Past 12 Hours) Vital Signs Temp Pulse Pulse Resp BP Pulse Ox O2 Del Method 08/18/23 15:48 62 08/18/23 15:40 72 20 142/81 H 08/18/23 15:28 36.4 C L 60 18 123/75 98 Room Air 08/18/23 11:31 36.5 C 65 16 100/63 97 Room Air 08/18/23 08:00 54 L 08/18/23 07:22 36.3 C L 66 18 117/72 96 Room Air Laboratory Results 08/18/23 05:22 08/18/23 05:22 PG Care Time/CCT Total # of Minutes Spent Total Time Spent with Patient: Total time spent is greater than 50% in coordination of care (as documented) at patient's floor/unit and/or counseling patient: Coding Level of Care Code 43473 SUB INP/OBS CARE MIN Diagnoses ACS (acute coronary syndrome) I24.9 Paroxysmal atrial fibrillation I48.0 Atrial fibrillation type: paroxysmal UTI (urinary tract infection) N39.0 Urinary tract infection type: acute cystitis Other closed nondisplaced fracture of second cervical vertebra, initial encounter S12.191A Encounter type: initial encounter Fracture type: closed Fracture morphology: other fracture Fracture alignment: nondisplaced Vertebral artery dissection I77.74 Dysarthria R47.1 Mild neurocognitive disorder G31.84 Hyponatremia E87.1 (2) Atrial fibrillation Atrial fibrillation type: paroxysmal Qualified Code(s): I48.0 - Paroxysmal atrial fibrillation (3) UTI (urinary tract infection) Urinary tract infection type: acute cystitis (4) C2 cervical fracture Encounter type: initial encounter Fracture type: closed Fracture morphology: other fracture Fracture alignment: nondisplaced Qualified Code(s): S12.191A - Other nondisplaced fracture of second cervical vertebra, initial encounter for closed fracture
[2023-08-18] MEDS: PROMETHAZINE HCL 12.5 MG in SODIUM CHLORIDE 0.9% 50 ML IV STA (16:42)
[2023-08-18] MEDS: AMIODARONE 200 MG TAB PO SCH (17:14)
[2023-08-18] MEDS: MELATONIN 3 MG TAB PO PRN (20:22)
[2023-08-19 06:33] LABS: Basophils # (auto) 0.04 K/uL (0.00-0.20); Basophils % (auto) 0.3 %; Eosinophils # (auto) 0.06 K/uL (0.00-0.50); Eosinophils % (auto) 0.4 %; Hematocrit (blood only) 37.2 % (37.0-47.0); Hemoglobin 12.5 g/dl (12.0-16.0); Immature Granulocytes # (auto) 0.05 K/uL (0.01-0.20); Immature Granulocytes % (auto) 0.3 %; Lymphocytes # (auto) 1.53 K/uL (1.20-3.40); Lymphocytes % (auto) 10.4 %; Mean Corpuscular Hemoglobin 29.2 pg (25.0-34.0); Mean Corpuscular Hgb Conc 33.6 g/dL (32.0-36.0); Mean Corpuscular Volume 86.9 fL (80.0-100.0); Mean Platelet Volume 9.8 fL (9.4-12.4); Monocytes # (auto) 0.76 K/uL (0.11-0.59); Monocytes % (auto) 5.2 %; Neutrophils # (auto) 12.29 K/uL (1.40-6.50); Neutrophils % (auto) 83.4 %; Platelet Count 258 K/uL (130-400); RDW Coefficient of Variation 14.3 % (11.5-14.5); RDW Standard Deviation 45.4 fL (36.4-46.3); Red Blood Count 4.28 M/uL (4.20-5.40); White Blood Count 14.73 K/ul (4.8-10.8)
[2023-08-19 06:40] LABS: BUN Creatinine Ratio 18.8 (10-20); Calcium 8.8 mg/dl (8.6-10.3); Creatinine Clr Calc Pharmacy 45.6 ml/min; Est GFR (African American) 93.3 ml/min; Est GFR (Non-African American) 80.5 ml/min
--- NOTE | 2023-08-19 10:15 | Cardiology Progress Note ---
Date of Service August 19, 2023 Assessment & Plan (1) ST elevation (STEMI) myocardial infarction: (2) Benign essential hypertension: (3) Cardiomyopathy: (4) Atrial fibrillation: Plan 1. Acute coronary syndrome: She presented with markedly elevated biomarkers and acute occlusion of the distal left anterior descending. She underwent successful PCI and is on dual anti-platelet therapy. 2. Cardiomyopathy: Noted to have reduced LV systolic function of unknown chronicity. We will switch her metoprolol tartrate to succinate at an equal dosed. She will continue losartan 12.5 mg daily. 3. Atrial fibrillation: She seemed to do well over the course of the evening. Now back in atrial fibrillation this morning. However, I think we will stop her amiodarone infusion and start oral therapy. We will continue low-dose apixaban. 4. Hypertension: Good control currently. 5. Hyperlipidemia: Continue high-intensity atorvastatin. From a cardiac standpoint she is doing well. I think she would be safe for discharge on amiodarone 400 mg twice daily for another 6 days. Then reduce to 200 mg daily. She will continue her current dose of metoprolol, atorvastatin, Plavix, aspirin and losartan. Admission and Anticipated Discharge Date Admission Date: August 16, 2023 Subjective This morning the patient claimed he feeling well. She did not report any neck pain. She did not report any breathing trouble or chest pain. However, she was disoriented and confused at times. Review of Systems Review of Systems: Per HPI Physical Exam Physical Exam: She is alert and answered questions appropriately HEENT: Sclerae are anicteric. Pupils are equal and reactive to light and accommodation. Extraocular movements were intact. Neuro: Cranial nerves intact Lungs: Lungs are clear to auscultation bilaterally. There are no rales wheezes or rhonchi. She has normal respiratory effort without use of accessory muscles. There is normal pulmonary excursion. Cardiac: The rhythm was regular. S1 and S2 were normal. There are no murmurs on examination. The PMI was not markedly displaced on palpation. Extremities: Patient has bilateral radial pulses that are equal in intensity. There is no evidence cyanosis or clubbing. There was no evidence of significant peripheral edema bilaterally. Skin: There are no rashes noted on examination today. Results & Data Vital Signs (Past 12 Hours) Vital Signs Temp Pulse Pulse Resp BP Pulse Ox O2 Del Method 08/19/23 07:47 36.5 C 73 18 118/74 97 Room Air 08/19/23 04:00 36.5 C 65 18 124/72 96 Room Air 08/18/23 23:00 36.6 C 68 16 113/72 96 Room Air 08/18/23 22:58 58 L Laboratory Results Abnormal Lab Results 08/18/23 08/19/23 16:11 05:52 WBC 14.73 H RBC 4.28 Hgb 12.5 Hct 37.2 MCV 86.9 MCH 29.2 MCHC 33.6 RDW Std Deviation 45.4 RDW Coeff of Gloria 14.3 Plt Count 258 MPV 9.8 Immature Gran % (Auto) 0.3 Neut % (Auto) 83.4 Lymph % (Auto) 10.4 Young % (Auto) 5.2 Eos % (Auto) 0.4 Baso % (Auto) 0.3 Neut # (Auto) 12.29 H Lymph # (Auto) 1.53 Young # (Auto) 0.76 H Eos # (Auto) 0.06 Baso # (Auto) 0.04 Immature Gran # (Auto) 0.05 Sodium 132 L Potassium 4.0 Chloride 100 Carbon Dioxide 25 Anion Gap 7 BUN 13 Creatinine 0.69 Est Cr Clr Drug Dosing 45.6 Est GFR ( Amer) 93.3 Est GFR (Non-Af Amer) 80.5 BUN/Creatinine Ratio 18.8 Glucose 122 H POC Glucose 122 H Calcium 8.8 PG Care Time/CCT Total # of Minutes Spent Total Time Spent with Patient: Total time spent is greater than 50% in coordination of care (as documented) at patient's floor/unit and/or counseling patient: Coding Level of Care Code 62774 SUB INP/OBS CARE 2/35MIN Diagnoses ST elevation (STEMI) myocardial infarction I21.02 Involved coronary artery: LAD coronary artery Benign essential hypertension I10 Cardiomyopathy I42.9 Paroxysmal atrial fibrillation I48.0 Atrial fibrillation type: paroxysmal (1) ST elevation (STEMI) myocardial infarction Involved coronary artery: LAD coronary artery Qualified Code(s): I21.02 - ST elevation (STEMI) myocardial infarction involving left anterior descending coronary artery (4) Atrial fibrillation Atrial fibrillation type: paroxysmal Qualified Code(s): I48.0 - Paroxysmal atrial fibrillation
--- NOTE | 2023-08-19 10:58 | Electrocardiogram Report ---
Test Reason : Blood Pressure : / mmHG Vent. Rate : 066 BPM Atrial Rate : 066 BPM P-R Int : 162 ms QRS Dur : 086 ms QT Int : 436 ms P-R-T Axes : 093 -33 -26 degrees QTc Int : 457 ms Normal sinus rhythm Possible Left atrial enlargement Left axis deviation Lateral infarct (cited on or before 16-AUG-2023) ACUTE RI / STEMI Abnormal ECG When compared with ECG of 17-AUG-2023 08:03, Sinus rhythm has replaced Atrial fibrillation Vent. rate has decreased BY 72 BPM Confirmed by Luis Call ([id number] on 08/19/2023 10:57:52 AM Referred By: Olivier Bowen Confirmed By:Pablito Call
--- NOTE | 2023-08-19 12:30 | Hospitalist Progress Note ---
Date of Service August 19, 2023 Assessment & Plan (1) ACS (acute coronary syndrome): Plan: ACS with anterior STEMI on admission. Cardiology consultation and recommendations appreciated. She underwent left heart catheterization on August 15 with PCI placed in the distal LAD. She is now on amiodarone, metoprolol succinate, losartan, atorvastatin, Eliquis, aspirin, Plavix. Telemetry.. Echo reveals reduced LVEF 35-40%, apical akinesis, mid septal/anterior hypokinesis (2) Atrial fibrillation: Plan: Now with controlled rate. Amiodarone drip has been switched to oral dosing. She is now on low-dose Eliquis. Telemetry. Appreciate cardiology consultation and recommendations. Rate control with metoprolol succinate and amiodarone (3) UTI (urinary tract infection): Plan: E. coli isolated. She is on intravenous Rocephin, day 3. (4) C2 cervical fracture: Plan: Recent. Nondisplaced. Appreciate orthopedic spine surgery consultation and recommendations. She is now in a hard cervical collar. 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 No acute intervention necessary at this time (6) Dysarthria: Plan: Resolved. No evidence of acute CVA (7) Mild neurocognitive disorder: Plan: She appears to have baseline dementia. She is disoriented and episodes of sundowning psychosis. Seroquel 25 mg twice daily has been started. IM Zyprexa as needed. Supportive care. (8) Hyponatremia: Plan: Mild. Associated with hyperosmolarity. Fluid restriction continues. Serial labs . Improving. Probable SIADH Plan IPR placement pending. She is medically stable for discharge Admission and Anticipated Discharge Date Admission Date: August 16, 2023 Subjective Alert but oriented to name only. She continues to have delirium and disorientation. is at the bedside. Seroquel 25 mg twice daily has been started. Will remove Rodriguez catheter today. Placement is pending Review of Systems 2 Review of Systems: Constitutional-no fever or chills ENT-no blurred vision, no double vision, no epistaxis, no sore throat Respiratory-no cough, no wheezing, no shortness of breath Cardiac-no palpitations, no chest pain, no syncope GI-intermittent nausea. No vomiting, diarrhea, melena, hematochezia -no urinary retention, no urinary incontinence, no dysuria, no hematuria Musculoskeletal-no joint pain, no muscle tenderness Skin-no bruising, no rashes, no pruritus Neuro-no isolated weakness, no paresthesia Psych-no depression, no anxiety. Oriented to name only Physical Exam 2 Physical Exam: General-alert and oriented x1, no fever, no chills HEENT-head atraumatic and normocephalic, pupils equal and reactive to light, extraocular muscles intact Neck-hard cervical collar is in place Chest-clear to auscultation. No rales, wheezing or rhonchi Cardiac-irregular rhythm with controlled rate. Normal S1 and S2 Abdomen-normal bowel sounds, no hepatosplenomegaly Extremities-no cyanosis, clubbing, or edema Neuro-cranial nerves II through XII intact, motor and sensory function within normal limits, strength symmetrical and consistent with age, no focal deficits Psych-normal affect, normal mood. Oriented to name only Results & Data Results & Data Vital Signs (Past 12 Hours) Vital Signs Temp Pulse Pulse Resp BP Pulse Ox O2 Del Method 08/19/23 11:12 36.3 C L 73 17 122/73 94 Room Air 08/19/23 08:00 76 08/19/23 07:47 36.5 C 73 18 118/74 97 Room Air 08/19/23 04:00 36.5 C 65 18 124/72 96 Room Air Laboratory Results 08/19/23 05:52 08/19/23 05:52 PG Care Time/CCT Total # of Minutes Spent Total Time Spent with Patient: Total time spent is greater than 50% in coordination of care (as documented) at patient's floor/unit and/or counseling patient: Coding Level of Care Code 81431 SUB INP/OBS CARE 3/50MIN Diagnoses ACS (acute coronary syndrome) I24.9 Paroxysmal atrial fibrillation I48.0 Atrial fibrillation type: paroxysmal UTI (urinary tract infection) N39.0 Urinary tract infection type: acute cystitis Other closed nondisplaced fracture of second cervical vertebra, initial encounter S12.191A Encounter type: initial encounter Fracture type: closed Fracture morphology: other fracture Fracture alignment: nondisplaced Vertebral artery dissection I77.74 Dysarthria R47.1 Mild neurocognitive disorder G31.84 Hyponatremia E87.1 (2) Atrial fibrillation Atrial fibrillation type: paroxysmal Qualified Code(s): I48.0 - Paroxysmal atrial fibrillation (3) UTI (urinary tract infection) Urinary tract infection type: acute cystitis (4) C2 cervical fracture Encounter type: initial encounter Fracture type: closed Fracture morphology: other fracture Fracture alignment: nondisplaced Qualified Code(s): S12.191A - Other nondisplaced fracture of second cervical vertebra, initial encounter for closed fracture
[2023-08-19] MEDS: QUEtiapine FUMARATE 25 MG TABLET PO SCH (12:43)
[2023-08-20] MEDS: METOPROLOL SUCC 25MG EXT REL TAB PO SCH (08:27)
--- NOTE | 2023-08-20 13:52 | Hospitalist Progress Note ---
Date of Service August 20, 2023 Assessment & Plan (1) ACS (acute coronary syndrome): Plan: ACS with anterior STEMI on admission. Cardiology consultation and recommendations appreciated. She underwent left heart catheterization on August 15 with PCI placed in the distal LAD. She is now on amiodarone, metoprolol succinate, losartan, atorvastatin, Eliquis, aspirin, Plavix. Telemetry.. Echo reveals reduced LVEF 35-40%, apical akinesis, mid septal/anterior hypokinesis (2) Atrial fibrillation: Plan: Now with controlled rate. Amiodarone drip has been switched to oral dosing. She is now on low-dose Eliquis. Telemetry. Appreciate cardiology consultation and recommendations. Rate control with metoprolol succinate and amiodarone (3) UTI (urinary tract infection): Plan: E. coli isolated. She is on intravenous Rocephin, day 4. (4) C2 cervical fracture: Plan: Recent. Nondisplaced. Appreciate orthopedic spine surgery consultation and recommendations. She is now in a hard cervical collar. 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 No acute intervention necessary at this time (6) Dysarthria: Plan: Resolved. No evidence of acute CVA (7) Mild neurocognitive disorder: Plan: She appears to have baseline dementia. Her orientation has improved on Seroquel. IM Zyprexa as needed. Supportive care. (8) Hyponatremia: Plan: Mild. Associated with hypo-osmolarity. Fluid restriction continues. Serial labs . Improving. Probable SIADH Plan Hopeful placement at [facility] tomorrow, August 20 Admission and Anticipated Discharge Date Admission Date: August 16, 2023 Subjective Mental status seems better. She is alert and oriented at the time of my examination. and son are at the bedside. Case management says [facility] will probably have a bed available tomorrow, August 20. She is mildly bradycardic and Toprol-XL dosage has been down titrated. Rocephin day 4 for the E. coli UTI. She will have day 5 tomorrow which should be enough. Review of Systems 2 Review of Systems: Constitutional-no fever or chills ENT-no blurred vision, no double vision, no epistaxis, no sore throat Respiratory-no cough, no wheezing, no shortness of breath Cardiac-no palpitations, no chest pain, no syncope GI-intermittent nausea. No vomiting, diarrhea, melena, hematochezia -no urinary retention, no urinary incontinence, no dysuria, no hematuria Musculoskeletal-no joint pain, no muscle tenderness Skin-no bruising, no rashes, no pruritus Neuro-no isolated weakness, no paresthesia Psych-no depression, no anxiety. Now oriented x 3 Physical Exam 2 Physical Exam: General-alert and oriented x3, no fever, no chills HEENT-head atraumatic and normocephalic, pupils equal and reactive to light, extraocular muscles intact Neck-hard cervical collar is in place Chest-clear to auscultation. No rales, wheezing or rhonchi Cardiac-irregular rhythm with controlled rate. Normal S1 and S2 Abdomen-normal bowel sounds, no hepatosplenomegaly Extremities-no cyanosis, clubbing, or edema Neuro-cranial nerves II through XII intact, motor and sensory function within normal limits, strength symmetrical and consistent with age, no focal deficits Psych-normal affect, normal mood. Results & Data Results & Data Vital Signs (Past 12 Hours) Vital Signs Temp Pulse Pulse Resp BP Pulse Ox O2 Del Method 08/20/23 11:00 36.2 C L 57 L 17 118/72 94 Room Air 08/20/23 08:00 36.6 C 56 L 17 116/70 96 Room Air 08/20/23 07:44 55 L 08/20/23 02:57 52 L 16 Room Air Laboratory Results 08/19/23 05:52 08/19/23 05:52 PG Care Time/CCT Total # of Minutes Spent Total Time Spent with Patient: Total time spent is greater than 50% in coordination of care (as documented) at patient's floor/unit and/or counseling patient: Coding Level of Care Code 16869 SUB INP/OBS CARE 3/50MIN Diagnoses ACS (acute coronary syndrome) I24.9 Paroxysmal atrial fibrillation I48.0 Atrial fibrillation type: paroxysmal UTI (urinary tract infection) N39.0 Urinary tract infection type: acute cystitis Other closed nondisplaced fracture of second cervical vertebra, initial encounter S12.191A Encounter type: initial encounter Fracture type: closed Fracture morphology: other fracture Fracture alignment: nondisplaced Vertebral artery dissection I77.74 Dysarthria R47.1 Mild neurocognitive disorder G31.84 Hyponatremia E87.1 (2) Atrial fibrillation Atrial fibrillation type: paroxysmal Qualified Code(s): I48.0 - Paroxysmal atrial fibrillation (3) UTI (urinary tract infection) Urinary tract infection type: acute cystitis (4) C2 cervical fracture Encounter type: initial encounter Fracture type: closed Fracture morphology: other fracture Fracture alignment: nondisplaced Qualified Code(s): S12.191A - Other nondisplaced fracture of second cervical vertebra, initial encounter for closed fracture
--- NOTE | 2023-08-20 17:17 | Electrocardiogram Report ---
Test Reason : Blood Pressure : / mmHG Vent. Rate : 093 BPM Atrial Rate : 093 BPM P-R Int : 150 ms QRS Dur : 080 ms QT Int : 358 ms P-R-T Axes : 046 -82 064 degrees QTc Int : 445 ms Normal sinus rhythm Left anterior fascicular block Possible Lateral infarct (cited on or before 16-AUG-2023) Abnormal ECG Confirmed by Luis Call ([id number] on 08/20/2023 5:17:02 PM Referred By: Olivier Bowen Confirmed By:Pablito Call
[2023-08-21 06:55] LABS: Basophils # (auto) 0.04 K/uL (0.00-0.20); Basophils % (auto) 0.4 %; Eosinophils # (auto) 0.44 K/uL (0.00-0.50); Eosinophils % (auto) 4.4 %; Hemoglobin 11.8 g/dl (12.0-16.0); Immature Granulocytes # (auto) 0.03 K/uL (0.01-0.20); Immature Granulocytes % (auto) 0.3 %; Lymphocytes # (auto) 1.98 K/uL (1.20-3.40); Lymphocytes % (auto) 19.8 %; Mean Corpuscular Hemoglobin 29.4 pg (25.0-34.0); Mean Corpuscular Hgb Conc 33.7 g/dL (32.0-36.0); Mean Corpuscular Volume 87.1 fL (80.0-100.0); Mean Platelet Volume 10.1 fL (9.4-12.4); Monocytes # (auto) 0.91 K/uL (0.11-0.59); Monocytes % (auto) 9.1 %; Neutrophils # (auto) 6.62 K/uL (1.40-6.50); Platelet Count 272 K/uL (130-400); RDW Coefficient of Variation 14.6 % (11.5-14.5); RDW Standard Deviation 46.6 fL (36.4-46.3); Red Blood Count 4.02 M/uL (4.20-5.40); White Blood Count 10.02 K/ul (4.8-10.8)
[2023-08-21 07:23] LABS: BUN Creatinine Ratio 21.4 (10-20); Calcium 8.7 mg/dl (8.6-10.3); Creatinine Clr Calc Pharmacy 45.1 ml/min; Est GFR (African American) 92.9 ml/min; Est GFR (Non-African American) 80.1 ml/min; Potassium 4.4 mmol/L (3.5-5.1)
[2023-08-21] MEDS: METOPROLOL SUCC 25MG EXT REL TAB PO SCH (08:17)
--- NOTE | 2023-08-21 10:31 | Discharge Summary ---
Date of Service August 21, 2023 Admission HPI Per Admitting Provider Nick is a 83-year-old female with a past medical history of mild cognitive decline last slums examination 21 consistent with minor neurocognitive impairment, GERD, and a recent fall approximately 10 days ago with residual reproducible cervical paraspinal muscle tenderness but with no cervical fracture/subluxation seen on CT of the C-spine presented to the ER 08/16/2023 for persistent pain in the right side of her neck which had not improved with multimodal pain control as an outpatient, which was reproducible, and with progressive weakness and foul-smelling urine with some concern for UTI. While in the ER opponent was elevated at 17,000, EKG was with sinus tachycardia and with lateral ST elevations new from prior. Heart alert was called. Other than her neck pain patient denied chest and radiating pain while in the ER History of social alcohol use, no history of tobacco use No prior history of CVA/CAD Discussed w cardiology. Distal LAD occlusion, small stent placed. Opened OK, small vessel. Remains chest pain free. Plaavix/ASA. Echo, trend trop. Mason seen at the bedside postcatheterization. She reports that she still has a little bit of pain in her right posterior superior neck (occiput), however the pain that was bothering her when she came to the ER seems to be improved to resolved and only notices pain now on palpation or neck rotation. She denies past history of cardiac disease. She does not think she has medication allergies but is not completely sure. She denies shortness of breath. She denies sweats. She has had some increased odor of her urine, but denies dysuria/polyuria Denies fever chills or sweats Denies abdominal pain Overall feels well after catheterization with no additional questions or concerns. Nontoxic-appearing Principal Diagnosis ST elevation MO, E. coli UTI Discharge Exam General-alert and oriented x3, no fever, no chills HEENT-head atraumatic and normocephalic, pupils equal and reactive to light, extraocular muscles intact Neck-hard cervical collar is in place Chest-clear to auscultation. No rales, wheezing or rhonchi Cardiac-irregular rhythm with controlled rate. Normal S1 and S2 Abdomen-normal bowel sounds, no hepatosplenomegaly Extremities-no cyanosis, clubbing, or edema Neuro-cranial nerves II through XII intact, motor and sensory function within normal limits, strength symmetrical and consistent with age, no focal deficits Psych-normal affect, normal mood. Discharge Data Allergies Allergy/AdvReac Type Severity Reaction Status Date / Time amoxicillin [From Augmentin] Allergy Unknown Verified 08/13/23 14:53 clavulanic acid Allergy Unknown Verified 08/13/23 14:53 [From Augmentin] doxycycline Allergy Unknown Verified 08/13/23 14:53 lisinopril Allergy Unknown vomitting Unverified 08/13/23 14:53 Penicillins Allergy Unknown HIVES Verified 08/13/23 14:53 grass pollen AdvReac Unknown Sneezing Verified 08/13/23 14:53 Consultations 08/17/23 11:06 Consult Orthopedic Spine Surgery Routine Procedures Performed Operation Date: 08/16/23 10:45 Actual Procedures s Cineradiography w/Routine Exam - Luis Quintana MD p Cath, Left with Cors and Vent - Luis Quintana MD p Drug Eluting Stent SGl Vessel - Luis Quintana MD Ordered Studies 08/16/23 10:42 CL Cath Imgs for PACS use only Stat 08/17/23 13:00 CT angio head w con Stat CT angio neck with con Stat CT cervical spine wo con Stat CT head/brain wo con Stat Hospital Course (1) ACS (acute coronary syndrome): ACS with anterior STEMI on admission. Cardiology consultation and recommendations appreciated. She underwent left heart catheterization on August 15 with PCI placed in the distal LAD. She is now on amiodarone, metoprolol succinate, losartan, atorvastatin, Eliquis, aspirin, Plavix. Telemetry. Echo reveals reduced LVEF 35-40%, apical akinesis, mid septal/anterior hypokinesis (2) Atrial fibrillation: Now with controlled rate. Amiodarone drip has been switched to oral dosing. She is now on low-dose Eliquis. Telemetry. Appreciate cardiology consultation and recommendations. Continue rate control with metoprolol succinate and am iodarone (3) UTI (urinary tract infection): E. coli isolated. This was treated while hospitalized with 5 days of intravenous Rocephin. (4) C2 cervical fracture: Recent. Nondisplaced. Appreciate orthopedic spine surgery consultation and recommendations. She is now in a hard cervical collar. (5) Vertebral artery dissection: Appears to be chronic. No acute intervention necessary at this time (6) Dysarthria: Resolved. No evidence of acute CVA (7) Mild neurocognitive disorder: She appears to have baseline dementia. Her orientation has improved considerably on Seroquel. IM Zyprexa as needed. Supportive care. (8) Hyponatremia: Mild. Associated with hypo-osmolarity. Fluid restriction continues. Serial labs . Improving. Probable SIADH Plan [facility] today[facility] Total Time Total Time Spent Total Time Spent (In Minutes): 45 minutes Discharge Plan Discharge Items Patient Disposition: Transfer Inpatient Rehab Fac Reason For Visit: STEMI Discharge Diagnosis: ST elevation MO, E. coli UTI, Condition on Discharge: Good Activity: Resume your previous activity Non-emergency contact: Primary Care Provider Call non-emergency contact if: your symptoms worsen Follow-up/Referrals: Rafael Lazo III, CRNP [Primary Care Provider] - Diet: Regular Addtl Attending Provider Instructions: Continue to wear hard cervical collar until follow-up with orthopedic spine physician. See primary care provider soon as possible after discharge from [facility]. No further antibiotics are necessary for the urinary tract infection. Several heart medications are new. Pending Studies at Discharge: No Stand-Alone Forms: My [facility] Skilled Items Patient informed of condition?: Yes DNR: Yes Discharge Level of Care: Acute rehab Communicable Disease: No Discharge Prognosis: Stable Lines: None Urinary Catheter: No Medications and DC Order Prescriptions: New aspirin 81 mg Tablet,Delayed Release (Dr/Ec) 81 mg PO QAM Qty: 0 0RF losartan 25 mg Tablet 12.5 mg PO QAM Qty: 0 0RF atorvastatin 40 mg Tablet 40 mg PO QAM Qty: 0 0RF quetiapine 25 mg Tablet 25 mg PO BID Qty: 0 0RF metoprolol succinate 25 mg Tablet Extended Release 24 Hr 12.5 mg PO QAM Qty: 0 0RF clopidogrel 75 mg Tablet 75 mg PO QAM Qty: 0 0RF Eliquis 2.5 mg Tablet 2.5 mg PO BID Qty: 0 0RF amiodarone 200 mg Tablet 400 mg PO BIDM Qty: 0 0RF nitroglycerin [Nitrostat] 0.4 mg Tablet, Sublingual 0.4 mg sublingual Q5M PRNQty: 0 0RF Continued omeprazole 40 mg capsule,delayed release(DR/EC) 40 mg PO QAM Qty: 90 3RF ondansetron HCl 4 mg tablet 4 mg PO BID PRN (Reason: nausea and vomiting) 5 Days Qty: 14 0RF tramadol 50 mg tablet 50 mg PO DAILY Qty: 7 0RF multivitamin [Multiple Vitamins] Tablet 1 tab PO QAM cholecalciferol (vitamin D3) [Vitamin D3] 2,000 unit Capsule 2,000 unit PO QPM calcium carbonate-vitamin D3 [Calcium 500 + D] 500 mg(1,250mg) -200 unit tablet 1 tab PO DAILY Discontinued lovastatin 20 mg tablet 20 mg PO QAM Qty: 90 3RF ipratropium bromide 42 mcg (0.06 %) spray,non-aerosol 2 spray intranasal TID Qty: 15 0RF Rx Instructions: administer into each nostril cyclobenzaprine 10 mg tablet 10 mg PO TID Qty: 14 0RF meloxicam 7.5 mg tablet 7.5 mg PO BID Qty: 30 0RF Discharge Orders: Discharge Order (Routine); Ordered 08/21/23 Ordered By: Alonzo French Admission Data Admit Date/Time: 08/16/23 11:24 Attending Provider: Alonzo French Admit Provider: Olivier Bowen Primary Care Provider: Rafael Lazo III Other Providers: Franky Dove Coding Level of Care Code 05016 INP/OBS DISCH >30 MIN Diagnoses ACS (acute coronary syndrome) I24.9 Paroxysmal atrial fibrillation I48.0 Atrial fibrillation type: paroxysmal UTI (urinary tract infection) N39.0 Urinary tract infection type: acute cystitis Other closed nondisplaced fracture of second cervical vertebra, initial encounter S12.191A Encounter type: initial encounter Fracture type: closed Fracture morphology: other fracture Fracture alignment: nondisplaced Vertebral artery dissection I77.74 Dysarthria R47.1 Mild neurocognitive disorder G31.84 Hyponatremia E87.1
== END 2023-08-21 13:13 | DRG 321 ==
LOC: ED 09:28 → OR 10:54 → 4W 10:54 → SUATTDRO 11:24 → 4W 11:24

== ENCOUNTER 2023-09-05 11:47 | Inpatient (IN) ==
[2023-09-05 13:11] LABS: Basophils # (auto) 0.02 K/uL (0.00-0.20); Basophils % (auto) 0.3 %; Eosinophils # (auto) 0.45 K/uL (0.00-0.50); Eosinophils % (auto) 6.4 %; Hemoglobin 13.5 g/dl (12.0-16.0); Immature Granulocytes # (auto) 0.03 K/uL (0.01-0.20); Immature Granulocytes % (auto) 0.4 %; Lymphocytes # (auto) 1.57 K/uL (1.20-3.40); Lymphocytes % (auto) 22.4 %; Mean Corpuscular Hemoglobin 29.5 pg (25.0-34.0); Mean Corpuscular Hgb Conc 34.6 g/dL (32.0-36.0); Mean Corpuscular Volume 85.3 fL (80.0-100.0); Mean Platelet Volume 10.3 fL (9.4-12.4); Monocytes # (auto) 0.58 K/uL (0.11-0.59); Monocytes % (auto) 8.3 %; Neutrophils # (auto) 4.37 K/uL (1.40-6.50); Neutrophils % (auto) 62.2 %; Platelet Count 279 K/uL (130-400); RDW Coefficient of Variation 14.5 % (11.5-14.5); RDW Standard Deviation 44.3 fL (36.4-46.3); Red Blood Count 4.57 M/uL (4.20-5.40); White Blood Count 7.02 K/ul (4.8-10.8)
[2023-09-05 13:28] LABS: Alanine Aminotransferase 24 U/L (7-52); Albumin Globulin Ratio 1.1 (0.9-2); Alkaline Phosphatase 88 U/L (34-104); Anion Gap 8 (3-11); Aspartate Aminotransferase 28 U/L (13-39); BUN Creatinine Ratio 8.2 (10-20); Bilirubin,Total 0.4 mg/dl (0.2-1.0); Blood Urea Nitrogen 7 mg/dl (6-23); Calcium 9.3 mg/dl (8.6-10.3); Carbon Dioxide 25 mmol/L (21-32); Chloride 93 mmol/L (98-107); Est GFR (African American) 73.4 ml/min; Est GFR (Non-African American) 63.4 ml/min; Globulin 3.7 gm/dl (2.5-4.0); Glucose 96 mg/dl (70-99(Fasting)); Magnesium 1.9 mg/dl (1.7-2.4); Sodium 126 mmol/L (136-145); Total Protein 7.7 gm/dl (6.0-8.3)
[2023-09-05 13:33] LABS: Troponin I High Sensitivity 37.3 pg/ml (0-14)
[2023-09-05 13:40] LABS: INR 1.1 (0.9-1.1); Partial Thromboplastin Ratio 1.2; Partial Thromboplastin Time 31 Seconds (21-31); Prothrombin Time 11.4 Seconds (9.0-12.0)
[2023-09-05 13:42] LABS: Thyroid Stimulating Hormone 4.969 uIu/ml (0.300-4.500)
--- NOTE | 2023-09-05 13:53 | Electrocardiogram Report ---
Test Reason : Blood Pressure : / mmHG Vent. Rate : 057 BPM Atrial Rate : 057 BPM P-R Int : 172 ms QRS Dur : 092 ms QT Int : 426 ms P-R-T Axes : 001 -75 102 degrees QTc Int : 414 ms Sinus bradycardia Left anterior fascicular block Recent Anterolateral infarct (cited on or before 16-AUG-2023) Abnormal ECG When compared with ECG of 18-AUG-2023 16:12, Serial changes of evolving Anterolateral infarct Present ST elevation in Anterolateral leads nearly resolved Confirmed by Jan Garcia ([id number]) on 09/05/2023 1:52:28 PM Referred By: Confirmed By:Jan Garcia
--- NOTE | 2023-09-05 14:36 | Emergency Department Note ---
Impression & Plan Acute hyponatremia, Generalized weakness ED Provider Note NAME: BUBBA VEGA AGE: 83 SEX: F : 1940 ARRIVES VIA: Ambulance INFORMANT: Patient, the patient's significant other ED PROVIDER(S): Artie Villegas DO CHIEF COMPLAINT: Weakness HPI: The patient is an 83-year-old female who presented to the emergency department by ambulance for evaluation of weakness. The patient has had multiple visits to our emergency department as well as an inpatient for an NSTEMI. The patient did have a stent placed. The patient had a recent fall. She was seen in our facility again and that time had repeat scans. She does have a history of a C2 fracture. The patient at this time denies having any chest pain or difficulty breathing. She just feels generalized weakness. She has had many new medications added to her regimen because of her cardiac issues. ROS: See above HPI for pertinent positives & negatives. A total of 10 systems reviewed and were otherwise negative. PAST MEDICAL HISTORY: See Below PAST SURGICAL HISTORY: See Below FAMILY HISTORY: See Below SOCIAL HISTORY: See Below HOME MEDICATIONS: See Below ALLERGIES: See Below VITALS: See Below PHYSICAL EXAMINATION: GENERAL: Patient is awake alert in no acute distress patient is resting comfortably and showing no signs of anxiety EYES: The conjunctivae are clear. The pupils are round and reactive. EARS, NOSE, MOUTH AND THROAT: The nose is without any evidence of any deformity. Mucous membranes are moist. Tongue is midline. NECK: Parmer J collar was in place. RESPIRATORY: Normal respiratory effort is noted there is no evidence of wheezing rhonchi or rales CARDIOVASCULAR: Regular rate and rhythm noted there no murmurs rubs or gallops normal S1 normal S2. GASTROINTESTINAL: The abdomen is soft. Abdomen is nontender. MUSCULOSKELETAL/EXTREMITIES: There is no evidence of gross deformity full range of motion is noted in the hips and shoulders. SKIN: There is no obvious evidence of any rash. There are no petechiae, pallor or cyanosis noted. NEUROLOGIC: Patient is awake alert and oriented x3 strength is symmetric patellar reflexes are 2+ bilaterally. Patient is able to hold each leg off the bed for greater than 5 seconds. MEDICAL DECISION MAKING: The patient is an 83-year-old female who presented to the emergency department by ambulance for an evaluation of generalized weakness. The patient has been in our facility multiple times over the course the last few weeks. She did have a fall. Initially she was not found to have any abnormality after the initial visit but she returned and was found to have a C2 fracture which had then displaced enough that it was able to be seen on the CT. She also was found to have vertebral artery pathology because of the fracture. She also was found to have an NSTEMI. She went to the [facility]. She did receive coronary artery stenting. She returns today because of generalized weakness. I discussed the patient's laboratory and radiographic studies with her. CT does not show any significant change of the fracture. Reflexes were symmetric. She was found to have low sodium. I do feel this could represent the patient's symptoms today. For this reason I discussed her condition with the on-call [facility] hospitalist. Triage Nursing notes reviewed. Prior medical records reviewed Vital Signs: reviewed and remarkable for no significant abnormalities Differential diagnosis: Infection, dehydration, metabolic abnormality, hypo/hyperglycemia, electrolyte disturbance, anemia, hypoxia, cardiac sources, intracerebral event, toxicologic, neurologic, as well as other pathologies. ER treatment provided: See below Diagnostics interpreted by me: ECG: EKG was obtained in the emergency department. My interpretation is sinus bradycardia 57 bpm. Poor R wave progression was noted. High lateral Q waves were noted. This was compared to a tracing from August 18, 2023. No changes were noted Cardiac Monitoring: An order was placed for continuous cardiac monitoring. The monitor shows a rate of 54 bpm with sinus bradycardia. Laboratory studies: As stated above and show below. Imaging studies: See below. Radiographic imaging was reviewed by myself Consultation(s): I discussed this case with Dr. Zamorano who is on-call for the [facility]. Past Med/Surg History Problem List (Updated 09/05/23 @ 16:05 by Artie Villegas DO) Generalized weakness (Acute) Acute hyponatremia (Acute) CAD (coronary artery disease) Fall (Acute) Neck pain (Acute) Vertebral artery dissection C2 cervical fracture (~08/16/23) comminuted nondisplaced type III fracture of the odontoid process fracture extends into the right body and transverse process of C2, likely involving the transverse foramen-per the Ed report from 08/16/23 the patient fell on 08/06/[address] scans Dysarthria Atrial fibrillation Cardiomyopathy Acute UTI (Acute) ST elevation (STEMI) myocardial infarction (Acute) ACS (acute coronary syndrome) (Acute) Mild neurocognitive disorder (Chronic) Hyponatremia Allergic rhinitis (Acute) Dyslipidemia (Acute) Benign essential hypertension (Acute) Laryngopharyngeal reflux (Acute) Osteoporosis (Acute) Medical History Closed fracture distal radius and ulna (02/22/23) GERD (gastroesophageal reflux disease) Cardiac murmur Hyperlipidemia Surgical History History of tubal ligation History of dilatation and curettage History of colonoscopy History of tonsillectomy History of adenoidectomy History of cataract surgery R/L Family History Father Prostate cancer Mother Rheumatoid arthritis Osteoarthritis Denies family history of Ovarian cancer Myocardial infarction Breast cancer Colorectal cancer Social History Smoking Status: Never smoker Second Hand Exposure: No; Do You Dip or Chew Tobacco: No; Hx Alcohol Use: Yes Alcohol type: wine Alcohol Intake Frequency: 2-4 x/Month Hx Substance Use: No Preferred Language: Romansh Communication Ability: Effective Visual Impairment: No Limitations Hearing Ability: Normal [employer] Operator Required: No Beliefs That Will Affect Care: Islam marital status: Current Living Situation: Alone and Spouse current occupational status: retired How many Children do You have: 2 Feels Safe at Home: Yes Childhood Exposure to Second-Hand Smoke: Yes Diet: regular caffeine: Yes during the past year weight has: remained stable Dental Care, Regularly: Yes Physical Activity Frequency: 5-6 Times per Week Seatbelt Use: always Sunscreen Use: Yes Assistive Devices: Denture - Upper and Glasses Allergies Allergies Allergy/AdvReac Type Severity Reaction Status Date / Time amoxicillin [From Augmentin] Allergy Unknown Verified 09/04/23 13:04 clavulanic acid Allergy Unknown Verified 09/04/23 13:04 [From Augmentin] doxycycline Allergy Unknown Verified 09/04/23 13:04 lisinopril Allergy Unknown vomitting Unverified 09/04/23 13:04 Penicillins Allergy Unknown HIVES Verified 09/04/23 13:04 grass pollen AdvReac Unknown Sneezing Verified 09/04/23 13:04 Home Meds Home Medications Medication Instructions Recorded Confirmed cholecalciferol (vitamin D3) 50 2,000 unit PO QPM 11/14/17 09/04/23 mcg (2,000 unit) capsule (Vitamin D3) multivitamin (Multiple Vitamins 1 tab PO QAM 11/14/17 09/04/23 tablet) calcium carbonate 500 mg-vitamin 1 tab PO DAILY 02/24/19 09/04/23 D3 5 mcg (200 unit) tablet (Calcium 500 + D) Previous Rx's Medication Instructions Recorded omeprazole 40 mg capsule,delayed 40 mg PO QAM #90 caps 05/13/23 release ondansetron HCl 4 mg tablet 4 mg PO BID PRN nausea and 08/09/23 vomiting 5 days #14 tabs apixaban 2.5 mg tablet (Eliquis) 2.5 mg PO BID #0 tabs 08/21/23 atorvastatin 40 mg tablet 40 mg PO QAM #0 tabs 08/21/23 clopidogrel 75 mg tablet 75 mg PO QAM #0 tabs 08/21/23 nitroglycerin 0.4 mg sublingual 0.4 mg sublingual Q5M PRN #0 tabs 08/21/23 tablet (Nitrostat) sulfamethoxazole 800 1 tab PO Q12H 7 days #14 tabs 09/03/23 mg-trimethoprim 160 mg tablet (Bactrim DS) amiodarone 200 mg tablet 200 mg PO DAILY #30 tabs 09/04/23 metoprolol succinate 25 mg 12.5 mg (1/2 x 25 mg) PO DAILY #30 09/04/23 tablet,extended release 24 hr tabs (Toprol XL) Results & Data (ED) Vital Signs Vital Signs - 24 hr 09/05/23 11:52 09/05/23 14:29 Temperature 36.7 C Temperature Source Skin Pulse Rate 64 Pulse Rate [Apical] 54 L Respiratory Rate 16 18 Respiratory Effort / Characteristics Non-Labored Spontaneous Non-Labored Spontaneous Respiratory Depth Normal Normal Respiratory Pattern Regular Blood Pressure 125/75 Blood Pressure [Right Arm] 132/68 Blood Pressure Mean 91 Blood Pressure Mean [Right Arm] 89 Pulse Oximetry 96 95 Oxygen Delivery Method Room Air Room Air Sepsis Recent Fever Within 48 Hours No Sepsis New/Unexplained Change in Mental Status No Sepsis Action Taken by Nursing No Action Required Home Medications Current Medication List: was personally reviewed by me Laboratory Data Attestation: I reviewed the patient's lab results. 09/05/23 12:54 09/05/23 12:54 Lab Results 09/05/23 Range/Units 12:54 WBC 7.02 (4.8-10.8) K/ul RBC 4.57 (4.20-5.40) M/uL Hgb 13.5 (12.0-16.0) g/dl Hct 39.0 (37.0-47.0) % MCV 85.3 (80.0-100.0) fL MCH 29.5 (25.0-34.0) pg MCHC 34.6 (32.0-36.0) g/dL RDW Std Deviation 44.3 (36.4-46.3) fL RDW Coeff of Gloria 14.5 (11.5-14.5) % Plt Count 279 (130-400) K/uL MPV 10.3 (9.4-12.4) fL Immature Gran % (Auto) 0.4 % Neut % (Auto) 62.2 % Lymph % (Auto) 22.4 % [place] % (Auto) 8.3 % Eos % (Auto) 6.4 % Baso % (Auto) 0.3 % Neut # (Auto) 4.37 (1.40-6.50) K/uL Lymph # (Auto) 1.57 (1.20-3.40) K/uL [place] # (Auto) 0.58 (0.11-0.59) K/uL Eos # (Auto) 0.45 (0.00-0.50) K/uL Baso # (Auto) 0.02 (0.00-0.20) K/uL Immature Gran # (Auto) 0.03 (0.01-0.20) K/uL PT 11.4 (9.0-12.0) Seconds INR 1.1 (0.9-1.1) APTT 31 (21-31) Seconds PTT Ratio 1.2 Sodium 126 L (136-145) mmol/L Potassium 5.0 (3.5-5.1) mmol/L Chloride 93 L (98-107) mmol/L Carbon Dioxide 25 (21-32) mmol/L Anion Gap 8 (3-11) BUN 7 (6-23) mg/dl Creatinine 0.85 (0.6-1.2) mg/dl Est Cr Clr Drug Dosing Not Reportable Est GFR ( Amer) 73.4 ml/min Est GFR (Non-Af Amer) 63.4 ml/min BUN/Creatinine Ratio 8.2 L (10-20) Glucose 96 (70-99(Fasting)) mg/dl Osmolality 263 L (280-300) mOsm/kg Calcium 9.3 (8.6-10.3) mg/dl Magnesium 1.9 (1.7-2.4) mg/dl Total Bilirubin 0.4 (0.2-1.0) mg/dl AST 28 (13-39) U/L ALT 24 (7-52) U/L Alkaline Phosphatase 88 (34-104) U/L Troponin I High Sens 37.3 H (0-14) pg/ml Total Protein 7.7 (6.0-8.3) gm/dl Albumin 4.0 (3.4-5.0) gm/dl Globulin 3.7 (2.5-4.0) gm/dl Albumin/Globulin Ratio 1.1 (0.9-2) TSH 4.969 H (0.300-4.500) uIu/ml Imaging Data Attestation: I personally reviewed and interpreted this imaging study as follows: My Impression: CT the brain was obtained in the emergency department. My interpretation is no intracranial hemorrhage or mass effect, final report below. CT of the cervical spine was obtained. My interpretation is C2 fracture redemonstrated on lateral projections, final report below Radiologist's Impression: Cervical Spine CT 09/05/23 14:31 CT SCAN OF THE CERVICAL SPINE CLINICAL HISTORY: Falls. Weakness. Known fracture. COMPARISON STUDY: Recent prior CT scans of the cervical spine, most recently dated 09/03/2023. TECHNIQUE: CT scan of the cervical spine is performed from the skull base to the upper thoracic spine. Images are reviewed in the axial, sagittal, and coronal planes. IV contrast was not administered for this examination. A dose lowering technique was utilized adhering to the principles of ALARA. CT DOSE: 998.86 mGy.cm FINDINGS: Skeletal structures: The skeletal structures are osteopenic. Again seen is a subacute comminuted nondisplaced type III fracture of the odontoid process. This extends into the right lateral body and transverse process of C2, and likely involves the right transverse foramen at this level. No new fracture is identified. Vertebral body height and alignment are maintained. There is straightening of the cervical lordosis. Anterior osteophytes are seen throughout. The odontoid process and lateral masses are intact. The atlantoaxial articulation is preserved noting productive degenerative change. The spinous processes appear intact. Intervertebral discs: There is moderate disc space narrowing at C3-C4, C4-C5, and C5-C6. Mild narrowing is seen at the remaining cervical levels. Central canal: Posterior disc osteophyte complexes are seen at all cervical levels between C2-C3 and C5-C6. This likely contributes to multilevel acquired compromise of the central canal. Soft tissues: The prevertebral and paraspinous soft tissues are within normal limits. There is atherosclerotic calcification of the carotid bulbs. Calvarium: The visualized calvarium at the skull base appears intact. Brain parenchyma: Partially visualized brain parenchyma at the skull base is within normal limits. Sinuses and mastoids: The visualized paranasal sinuses are clear. The mastoid air cells are well pneumatized. Lung apices: Clear as visualized. IMPRESSION: 1. Again seen is a subacute, comminuted, and nondisplaced type III fracture of the odontoid process with extension into the right body and transverse process of C2. Alignment is unchanged from 09/03/2023. 2. No new fracture is seen. There is no subluxation. 3. Osteopenia and spondylotic change as above. ACT 112: Negative or not required by law. Electronically signed by: Brandon Siegel M.D. 09/05/2023 3:[address] 09/05/23 14:31 CT OF THE HEAD WITHOUT CONTRAST CLINICAL HISTORY: weakness, recent fall, C spine fx COMPARISON STUDY: Head CT September 03, 2023. TECHNIQUE: Helical axial images of the head were obtained without IV contrast. Automated exposure control was utilized for the study. A dose lowering technique was utilized adhering to the principles of ALARA. FINDINGS: No acute intracranial hemorrhage, midline shift or mass effect is present. The ventricular system is stable. White matter hypodensities favor small vessel disease. Hypodensities within the bilateral basal ganglia are again noted. The basal cisterns are patent. No extra-axial collections are present. There are no findings to suggest acute dural sinus thrombosis or acute territorial infarct. No significant calvarial abnormalities are present. Visualized portions of the sinuses and mastoid air cells are clear. IMPRESSION: 1. No acute intracranial findings. No change in appearance of the brain. 2. No calvarial fractures. ACT 112: Negative or not required by law. Electronically signed by: Jordy Bray M.D. 09/05/2023 3:55 PM Discharge Plan Visit Data Chief Complaint: Weakness Stated Complaint: WEAKNESS, DIFF. AMBULATING ED Provider: Artie Villegas Discharge Problem: Acute hyponatremia, Generalized weakness Patient Disposition: Being Evaluated by Hospitalist Forms Stand Alone Forms: My [facility] Prescriptions Prescriptions: No Action omeprazole 40 mg capsule,delayed release(DR/EC) 40 mg PO QAM Qty: 90 3RF ondansetron HCl 4 mg tablet 4 mg PO BID PRN (Reason: nausea and vomiting) 5 Days Qty: 14 0RF sulfamethoxazole-trimethoprim [Bactrim DS] 800-160 mg tablet 1 tab PO Q12H 7 Days Qty: 14 0RF amiodarone 200 mg tablet 200 mg PO DAILY Qty: 30 1RF metoprolol succinate [Toprol XL] 25 mg tablet extended release 24 hr 12.5 mg PO DAILY Qty: 30 2RF multivitamin [Multiple Vitamins] Tablet 1 tab PO QAM cholecalciferol (vitamin D3) [Vitamin D3] 2,000 unit Capsule 2,000 unit PO QPM calcium carbonate-vitamin D3 [Calcium 500 + D] 500 mg(1,250mg) -200 unit tablet 1 tab PO DAILY atorvastatin 40 mg Tablet 40 mg PO QAM Qty: 0 0RF clopidogrel 75 mg Tablet 75 mg PO QAM Qty: 0 0RF nitroglycerin [Nitrostat] 0.4 mg Tablet, Sublingual 0.4 mg sublingual Q5M PRNQty: 0 0RF Eliquis 2.5 mg Tablet 2.5 mg PO BID Qty: 0 0RF Referrals Referrals: Rafael Lazo III, CRNP [Primary Care Provider] -
--- NOTE | 2023-09-05 15:51 | CT Scan Report ---
CT SCAN OF THE CERVICAL SPINE CLINICAL HISTORY: Falls. Weakness. Known fracture. COMPARISON STUDY: Recent prior CT scans of the cervical spine, most recently dated 09/03/2023. TECHNIQUE: CT scan of the cervical spine is performed from the skull base to the upper thoracic spine . Images are reviewed in the axial, sagittal, and coronal planes. IV contrast was not administered fo r this examination. A dose lowering technique was utilized adhering to the principles of ALARA. CT DOSE: 998.86 mGy.cm FINDINGS: Skeletal structures: The skeletal structures are osteopenic. Again seen is a subacute comminuted nond isplaced type III fracture of the odontoid process. This extends into the right lateral body and gonsalves sverse process of C2, and likely involves the right transverse foramen at this level. No new fracture is identified. Vertebral body height and alignment are maintained. There is straightening of the cer vical lordosis. Anterior osteophytes are seen throughout. The odontoid process and lateral masses are intact. The atlantoaxial articulation is preserved noting productive degenerative change. The spinou s processes appear intact. Intervertebral discs: There is moderate disc space narrowing at C3-C4, C4-C5, and C5-C6. Mild narrowi ng is seen at the remaining cervical levels. Central canal: Posterior disc osteophyte complexes are seen at all cervical levels between C2-C3 and C5-C6. This likely contributes to multilevel acquired compromise of the central canal. Soft tissues: The prevertebral and paraspinous soft tissues are within normal limits. There is athero sclerotic calcification of the carotid bulbs. Calvarium: The visualized calvarium at the skull base appears intact. Brain parenchyma: Partially visualized brain parenchyma at the skull base is within normal limits. Sinuses and mastoids: The visualized paranasal sinuses are clear. The mastoid air cells are well pneu matized. Lung apices: Clear as visualized. IMPRESSION: 1. Again seen is a subacute, comminuted, and nondisplaced type III fracture of the odontoid process w ith extension into the right body and transverse process of C2. Alignment is unchanged from 09/03/2023 . 2. No new fracture is seen. There is no subluxation. 3. Osteopenia and spondylotic change as above. ACT 112: Negative or not required by law. Electronically signed by: Brandon Siegel M.D. 09/05/2023 3:50 PM
--- NOTE | 2023-09-05 15:56 | CT Scan Report ---
CT OF THE HEAD WITHOUT CONTRAST CLINICAL HISTORY: weakness, recent fall, C spine fx COMPARISON STUDY: Head CT September 03, 2023. TECHNIQUE: Helical axial images of the head were obtained without IV contrast. Automated exposure con trol was utilized for the study. A dose lowering technique was utilized adhering to the principles o f ALARA. FINDINGS: No acute intracranial hemorrhage, midline shift or mass effect is present. The ventricular system is stable. White matter hypodensities favor small vessel disease. Hypodensities within the gael ateral basal ganglia are again noted. The basal cisterns are patent. No extra-axial collections are p resent. There are no findings to suggest acute dural sinus thrombosis or acute territorial infarct. N o significant calvarial abnormalities are present. Visualized portions of the sinuses and mastoid air cells are clear. IMPRESSION: 1. No acute intracranial findings. No change in appearance of the brain. 2. No calvarial fractures. ACT 112: Negative or not required by law. Electronically signed by: Jordy Bray M.D. 09/05/2023 3:55 PM
--- NOTE | 2023-09-05 16:53 | History & Physical Report ---
Date of Service September 05, 2023 Assessment & Plan (1) Generalized weakness: Plan: Patient presents with generalized weakness, no focal neurological deficit It is probably multifactorial -Hyponatremia sodium 126 -Recent MT, troponin is trending down -Started on Bactrim for urinary tract infection (2) Acute hyponatremia: Plan: Sodium 126 Will give her mild hydration with normal saline Sodium tablet Monitor BMP Nephrology consult She has elevated TSH, will obtain 3-4 She was recently started on amiodarone, continue amiodarone 200 mg as per recent cardiology follow-up (3) CAD (coronary artery disease): Plan: Recent MT Continue home medications (4) C2 cervical fracture: Plan: She has a collar (5) Atrial fibrillation: Plan: She is currently in sinus rhythm Continue home medication, including Eliquis (6) Cardiomyopathy: Plan: Recent MT, ischemic cardiomyopathy EF 35 to 40% Continue home medication Repeat echo in 3 months History of Present Illness Chief Complaint: Generalized weakness Primary Care Provider: Rafael Lazo III, ROMEL 83-year-old female with recent admission to the hospital after mechanical fall on August 06, 2023, diagnosis C2 fracture , has collar on, acute MT in August, MICHELL to small distal LAD occlusion, ischemic cardiomyopathy, EF 35-40 %, post MT A-fib with RVR, currently on tapering doses of amiodarone 200 mg daily, vertebral artery dissection chronic, mild cognitive impairment, today patient presents with generalized weakness, she denies fever chills cough or chest pain, denies shortness of breath, reports poor appetite and just feeling lousy, no focal neurological deficit, she has good strength in upper and lower extremities, she is able to ambulate. Her blood work is consistent with hyponatremia sodium level 126, potassium is 5, no other abnormalities. She denies drinking a lot of water, denies diarrhea, denies dizziness lightheadedness, she was recently prescribed Bactrim for urinary tract infection, denies dysuria Allergies Allergy/AdvReac Type Severity Reaction Status Date / Time amoxicillin [From Augmentin] Allergy Unknown Verified 09/04/23 13:04 clavulanic acid Allergy Unknown Verified 09/04/23 13:04 [From Augmentin] doxycycline Allergy Unknown Verified 09/04/23 13:04 lisinopril Allergy Unknown vomitting Unverified 09/04/23 13:04 Penicillins Allergy Unknown HIVES Verified 09/04/23 13:04 grass pollen AdvReac Unknown Sneezing Verified 09/04/23 13:04 Home Medications Medication Instructions Recorded Confirmed Type cholecalciferol (vitamin D3) 50 2,000 unit PO QPM 11/14/17 09/05/23 History mcg (2,000 unit) capsule (Vitamin D3) multivitamin (Multiple Vitamins 1 tab PO QAM 11/14/17 09/05/23 History tablet) calcium carbonate 500 mg-vitamin 1 tab PO QAM 02/24/19 09/05/23 History D3 5 mcg (200 unit) tablet (Calcium 500 + D) omeprazole 40 mg capsule,delayed 40 mg PO QAM #90 caps 05/13/23 09/05/23 Rx release ondansetron HCl 4 mg tablet 4 mg PO BID PRN nausea and 08/09/23 09/05/23 Rx vomiting 5 days #14 tabs apixaban 2.5 mg tablet (Eliquis) 2.5 mg PO BID #0 tabs 08/21/23 09/05/23 Rx atorvastatin 40 mg tablet 40 mg PO QAM #0 tabs 08/21/23 09/05/23 Rx clopidogrel 75 mg tablet 75 mg PO QAM #0 tabs 08/21/23 09/05/23 Rx sulfamethoxazole 800 1 tab PO Q12H 7 days #14 tabs 09/03/23 09/05/23 Rx mg-trimethoprim 160 mg tablet (Bactrim DS) metoprolol succinate 25 mg 12.5 mg (1/2 x 25 mg) PO DAILY #30 09/04/23 09/05/23 Rx tablet,extended release 24 hr tabs (Toprol XL) amiodarone 200 mg tablet 200 mg PO QDB 09/05/23 09/05/23 History docusate sodium 100 mg capsule 100 mg PO QPM 09/05/23 09/05/23 History (Colace) nitroglycerin 0.4 mg sublingual 0.4 mg sublingual Q5M PRN Chest 09/05/23 09/05/23 History tablet (Nitrostat) Pain polyethylene glycol 3350 17 17 g PO DAILY PRN Constipation 09/05/23 09/05/23 History gram/dose oral powder (Miralax) Past Med/Surg History Problem List (Updated 09/05/23 @ 16:05 by Artie Villegas DO) Generalized weakness (Acute) Acute hyponatremia (Acute) CAD (coronary artery disease) Fall (Acute) Neck pain (Acute) Vertebral artery dissection C2 cervical fracture (~08/16/23) comminuted nondisplaced type III fracture of the odontoid process fracture extends into the right body and transverse process of C2, likely involving the transverse foramen-per the Ed report from 08/16/23 the patient fell on 08/06/[address] scans Dysarthria Atrial fibrillation Cardiomyopathy Acute UTI (Acute) ST elevation (STEMI) myocardial infarction (Acute) ACS (acute coronary syndrome) (Acute) Mild neurocognitive disorder (Chronic) Hyponatremia Allergic rhinitis (Acute) Dyslipidemia (Acute) Benign essential hypertension (Acute) Laryngopharyngeal reflux (Acute) Osteoporosis (Acute) Medical History Closed fracture distal radius and ulna (02/22/23) GERD (gastroesophageal reflux disease) Cardiac murmur Hyperlipidemia Surgical History History of tubal ligation History of dilatation and curettage History of colonoscopy History of tonsillectomy History of adenoidectomy History of cataract surgery R/L Family History Father Prostate cancer Mother Rheumatoid arthritis Osteoarthritis Denies family history of Ovarian cancer Myocardial infarction Breast cancer Colorectal cancer Social History Smoking Status: Never smoker Second Hand Exposure: No; Do You Dip or Chew Tobacco: No; Hx Alcohol Use: Yes Alcohol type: wine Alcohol Intake Frequency: 2-4 x/Month Hx Substance Use: No Preferred Language: Macedonian Communication Ability: Effective Visual Impairment: No Limitations Hearing Ability: Normal [place] [employer] Finisher Required: No Beliefs That Will Affect Care: Anglican marital status: Current Living Situation: Alone and Spouse current occupational status: retired How many Children do You have: 2 Feels Safe at Home: Yes Childhood Exposure to Second-Hand Smoke: Yes Diet: regular caffeine: Yes during the past year weight has: remained stable Dental Care, Regularly: Yes Physical Activity Frequency: 5-6 Times per Week Seatbelt Use: always Sunscreen Use: Yes Assistive Devices: Denture - Upper and Glasses Review of Systems Review of Systems: All systems reviewed & are unremarkable except as noted in Subjective Physical Exam Physical Exam: Head is atraumatic normocephalic Neck collar is on Chest clear to auscultation bilaterally Heart S1-S2 regular Abdomen soft nontender nondistended Extremities no clubbing no cyanosis, pulses present Neurologically he is alert awake oriented x 3, no focal neurological deficit Results & Data Results & Data Vital Signs (Past 12 Hours) Vital Signs Temp Pulse Pulse Resp BP BP Pulse Ox 09/05/23 14:29 54 L 18 132/68 95 09/05/23 11:52 36.7 C 64 16 125/75 96 O2 Del Method 09/05/23 14:29 Room Air 09/05/23 11:52 Room Air Laboratory Results Abnormal lab results 09/05/23 Range/Units 12:54 Sodium 126 L (136-145) mmol/L Chloride 93 L (98-107) mmol/L BUN/Creatinine Ratio 8.2 L (10-20) Osmolality 263 L (280-300) mOsm/kg Troponin I High Sens 37.3 H (0-14) pg/ml TSH 4.969 H (0.300-4.500) uIu/ml Diagnostic Findings Cervical Spine CT 09/05/23 14:31 CT SCAN OF THE CERVICAL SPINE CLINICAL HISTORY: Falls. Weakness. Known fracture. COMPARISON STUDY: Recent prior CT scans of the cervical spine, most recently dated 09/03/2023. TECHNIQUE: CT scan of the cervical spine is performed from the skull base to the upper thoracic spine. Images are reviewed in the axial, sagittal, and coronal planes. IV contrast was not administered for this examination. A dose lowering technique was utilized adhering to the principles of ALARA. CT DOSE: 998.86 mGy.cm FINDINGS: Skeletal structures: The skeletal structures are osteopenic. Again seen is a subacute comminuted nondisplaced type III fracture of the odontoid process. This extends into the right lateral body and transverse process of C2, and likely involves the right transverse foramen at this level. No new fracture is identified. Vertebral body height and alignment are maintained. There is straightening of the cervical lordosis. Anterior osteophytes are seen throughout. The odontoid process and lateral masses are intact. The atlantoaxial articulation is preserved noting productive degenerative change. The spinous processes appear intact. Intervertebral discs: There is moderate disc space narrowing at C3-C4, C4-C5, and C5-C6. Mild narrowing is seen at the remaining cervical levels. Central canal: Posterior disc osteophyte complexes are seen at all cervical levels between C2-C3 and C5-C6. This likely contributes to multilevel acquired compromise of the central canal. Soft tissues: The prevertebral and paraspinous soft tissues are within normal limits. There is atherosclerotic calcification of the carotid bulbs. Calvarium: The visualized calvarium at the skull base appears intact. Brain parenchyma: Partially visualized brain parenchyma at the skull base is within normal limits. Sinuses and mastoids: The visualized paranasal sinuses are clear. The mastoid air cells are well pneumatized. Lung apices: Clear as visualized. IMPRESSION: 1. Again seen is a subacute, comminuted, and nondisplaced type III fracture of the odontoid process with extension into the right body and transverse process of C2. Alignment is unchanged from 09/03/2023. 2. No new fracture is seen. There is no subluxation. 3. Osteopenia and spondylotic change as above. ACT 112: Negative or not required by law. Electronically signed by: Brandon Siegel M.D. 09/05/2023 3:[address] 09/05/23 14:31 CT OF THE HEAD WITHOUT CONTRAST CLINICAL HISTORY: weakness, recent fall, C spine fx COMPARISON STUDY: Head CT September 03, 2023. TECHNIQUE: Helical axial images of the head were obtained without IV contrast. Automated exposure control was utilized for the study. A dose lowering technique was utilized adhering to the principles of ALARA. FINDINGS: No acute intracranial hemorrhage, midline shift or mass effect is present. The ventricular system is stable. White matter hypodensities favor small vessel disease. Hypodensities within the bilateral basal ganglia are again noted. The basal cisterns are patent. No extra-axial collections are present. There are no findings to suggest acute dural sinus thrombosis or acute territorial infarct. No significant calvarial abnormalities are present. Visualized portions of the sinuses and mastoid air cells are clear. IMPRESSION: 1. No acute intracranial findings. No change in appearance of the brain. 2. No calvarial fractures. ACT 112: Negative or not required by law. Electronically signed by: Jordy Bray M.D. 09/05/2023 3:55 PM ECG Additional Comments: Sinus bradycardia Left anterior fascicular block Recent Anterolateral infarct (cited on or before 16-AUG-2023) PG Care Time/CCT Total # of Minutes Spent Total Time Spent with Patient: Total time spent is greater than 50% in coordination of care (as documented) at patient's floor/unit and/or counseling patient: Coding Level of Care Code 85292 INT INP/OBS CARE 3/75MIN Diagnoses Generalized weakness R53.1 Acute hyponatremia E87.1 CAD (coronary artery disease) I25.10 Other closed nondisplaced fracture of second cervical vertebra, initial encounter S12.191A Encounter type: initial encounter Fracture type: closed Fracture morphology: other fracture Fracture alignment: nondisplaced Paroxysmal atrial fibrillation I48.0 Atrial fibrillation type: paroxysmal Cardiomyopathy I42.9 (4) C2 cervical fracture Encounter type: initial encounter Fracture type: closed Fracture morphology: other fracture Fracture alignment: nondisplaced Qualified Code(s): S12.191A - Other nondisplaced fracture of second cervical vertebra, initial encounter for closed fracture (5) Atrial fibrillation Atrial fibrillation type: paroxysmal Qualified Code(s): I48.0 - Paroxysmal atrial fibrillation
[2023-09-05] MEDS: SODIUM CHLORIDE 0.9% 1,000 ML IV SCH (17:34)
[2023-09-05] MEDS ORDERED: ACETAMINOPHEN 325 MG TAB PO PRN (17:45)
[2023-09-05] MEDS ORDERED: ALUMINUM/MAGNESIUM SUSP 30 ML UDC PO PRN (17:45)
[2023-09-05] MEDS ORDERED: MELATONIN 3 MG TAB PO PRN (17:45)
[2023-09-05] MEDS ORDERED: MAGNESIUM HYDROXIDE SUSP 30 ML UDC PO PRN (17:45)
[2023-09-05 17:58] LABS: T4 Free Thyroxine 1.28 ng/dl (0.61-1.60)
[2023-09-05] MEDS: SODIUM CHLORIDE 1 GM TABLET PO SCH (21:03)
[2023-09-05] MEDS ORDERED: NITROGLYCERIN SL 0.4 MG/TAB TAB SL PRN (21:10)
[2023-09-05] MEDS ORDERED: POLYETHYLENE (MIRALAX) 17 GM PACK PO PRN (21:10)
[2023-09-05] MEDS: CHOLECALCIFEROL 25 MCG (1000 UNITS) TAB PO SCH (22:15)
[2023-09-05] MEDS: DOCUSATE SODIUM 100 MG CAP PO SCH (22:15)
[2023-09-05] MEDS: APIXABAN 2.5 MG TAB PO SCH (22:15)
[2023-09-06 03:58] LABS: Appearance Urine Clear (Clear); Bilirubin Urine Negative (Negative); Blood Urine Negative (Negative); Color Urine Yellow; Glucose Urine UA Negative (Negative); Ketones Urine Trace (Negative); Leukocyte Esterase Urine Negative (Negative); Nitrite Urine Negative (Negative); Protein Urine Negative (Negative); Specific Gravity Urine 1.009 (1.000-1.030); Urobilinogen Urine Negative (Negative); pH Urine 7.5 (4.5-7.5)
--- NOTE | 2023-09-06 07:37 | XRay Report ---
XR chest 1V portable CLINICAL HISTORY: weakness, hyponatremia COMPARISON STUDY: Chest radiograph August 16, 2023. FINDINGS: Lung volumes are normal. Lungs are clear. There is no pneumothorax or pleural effusion. Car diac size is normal. Mediastinal contours are normal. There is no evidence for pulmonary edema. IMPRESSION: No acute cardiopulmonary findings. ACT 112: Negative or not required by law. Electronically signed by: Jordy Bray M.D. 09/06/2023 7:35 AM
[2023-09-06 08:00] LABS: Basophils # (auto) 0.02 K/uL (0.00-0.20); Basophils % (auto) 0.3 %; Eosinophils # (auto) 0.72 K/uL (0.00-0.50); Eosinophils % (auto) 12.1 %; Hematocrit (blood only) 33.8 % (37.0-47.0); Hemoglobin 11.6 g/dl (12.0-16.0); Immature Granulocytes # (auto) 0.01 K/uL (0.01-0.20); Immature Granulocytes % (auto) 0.2 %; Lymphocytes # (auto) 1.58 K/uL (1.20-3.40); Lymphocytes % (auto) 26.6 %; Mean Corpuscular Hemoglobin 29.3 pg (25.0-34.0); Mean Corpuscular Hgb Conc 34.3 g/dL (32.0-36.0); Mean Corpuscular Volume 85.4 fL (80.0-100.0); Mean Platelet Volume 10.4 fL (9.4-12.4); Monocytes # (auto) 0.62 K/uL (0.11-0.59); Monocytes % (auto) 10.4 %; Neutrophils # (auto) 2.99 K/uL (1.40-6.50); Neutrophils % (auto) 50.4 %; Platelet Count 241 K/uL (130-400); RDW Coefficient of Variation 14.6 % (11.5-14.5); RDW Standard Deviation 44.8 fL (36.4-46.3); Red Blood Count 3.96 M/uL (4.20-5.40); White Blood Count 5.94 K/ul (4.8-10.8)
[2023-09-06 08:14] LABS: BUN Creatinine Ratio 8.6 (10-20); Calcium 8.2 mg/dl (8.6-10.3); Creatinine Clr Calc Pharmacy 50.4 ml/min; Est GFR (African American) 92.9 ml/min; Est GFR (Non-African American) 80.1 ml/min; Potassium 4.4 mmol/L (3.5-5.1)
[2023-09-06] MEDS: AMIODARONE 200 MG TAB PO SCH (08:28)
[2023-09-06] MEDS: MULTIVITAMIN TAB PO SCH (08:28)
[2023-09-06] MEDS: CLOPIDOGREL BISULFATE 75 MG TAB PO SCH (08:28)
[2023-09-06] MEDS: ATORVASTATIN 40 MG TAB PO SCH (08:28)
[2023-09-06] MEDS: PANTOprazole 40 MG TAB PO SCH (08:28)
[2023-09-06] MEDS: CALCIUM 600MG + VIT D 400 IU TAB PO SCH (08:29)
[2023-09-06] MEDS: METOPROLOL SUCC 25MG EXT REL TAB PO SCH (08:29)
[2023-09-06] MEDS: FUROSEMIDE 20 MG TAB PO SCH (11:36)
--- NOTE | 2023-09-06 11:39 | Nephrology Consultation ---
Date of Consultation September 06, 2023 Assessment & Plan (1) Hyponatremia: * Mild, asymptomatic hyponatremia dating back to 03/02 * Recent worsening of hyponatremia likely related to NSTEMI, odontoid fracture/pain * Uosm inappropriately elevated in the setting of low serum Na * Patient appears clinically euvolemic * Hypothyroidism is in the context of amiodarone therapy and free T4 is normal * Stop saline infusion * Increase NaCl to 1 g po QID * Will provide one dose Furosemide 20 mg po to promote free water excretion * Will repeat BMP at 3 pm today and again in am (2) Generalized weakness: (3) Atrial fibrillation: * On amiodarone, apixaban (4) ST elevation (STEMI) myocardial infarction: * STEMI 08/16/23 requiring PCI w/ MICHELL of distal LAD lesion * 08/16/23 Echo: LVEF 35-40%, normal RV size and function, no significant valvular pathology (5) Odontoid fracture: History of Present Illness Reason for Consultation: Hyponatremia Attending Physician: Alonzo French MD History of Present Illness Mrs. Ann is an 83 year old white female who is seen at the request of [facility] hospital[facility] for evaluation of hyponatremia. Consultation order was placed as STAT in [facility] but request was not communicated to the provider and patient is being seen as a routine consultation this am. Mrs. Ann denies any prior hospitalization due to hyponatremia. Review of the EMR however shows serum Na 126-135 mmol/L dating back to 03/02. 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 Her medical history is significant for STEMI 08/16/23 requiring PCI w/ MICHELL of distal LAD lesion, atrial fibrillation (amiodarone, apixaban) and mechanical fall 09/03/23 resulting in odontoid fracture. Mrs. Ann reports generalized weakness 09/05/23. No associated symptoms such as fever, angina, dyspnea, N/V/D. She presented to the [facility] where she was found to be afebrile, hemodynamically stable with normal WBC# and preserved kidney function (Cr 0.7). Serum Na was 126 mmol/L. Patient was given 1 g NaCl po x1 and 1 L 0.9 NS. Uosm 391 at the time of admission. TSH was mildly elevated at 4.96. Allergies Allergy/AdvReac Type Severity Reaction Status Date / Time amoxicillin [From Augmentin] Allergy Unknown Verified 09/04/23 13:04 clavulanic acid Allergy Unknown Verified 09/04/23 13:04 [From Augmentin] doxycycline Allergy Unknown Verified 09/04/23 13:04 lisinopril Allergy Unknown vomitting Unverified 09/04/23 13:04 Penicillins Allergy Unknown HIVES Verified 09/04/23 13:04 grass pollen AdvReac Unknown Sneezing Verified 09/04/23 13:04 Home Medications Medication Instructions Recorded Confirmed Type cholecalciferol (vitamin D3) 50 2,000 unit PO QPM 11/14/17 09/05/23 History mcg (2,000 unit) capsule (Vitamin D3) multivitamin (Multiple Vitamins 1 tab PO QAM 11/14/17 09/05/23 History tablet) calcium carbonate 500 mg-vitamin 1 tab PO QAM 02/24/19 09/05/23 History D3 5 mcg (200 unit) tablet (Calcium 500 + D) omeprazole 40 mg capsule,delayed 40 mg PO QAM #90 caps 05/13/23 09/05/23 Rx release ondansetron HCl 4 mg tablet 4 mg PO BID PRN nausea and 08/09/23 09/05/23 Rx vomiting 5 days #14 tabs apixaban 2.5 mg tablet (Eliquis) 2.5 mg PO BID #0 tabs 08/21/23 09/05/23 Rx atorvastatin 40 mg tablet 40 mg PO QAM #0 tabs 08/21/23 09/05/23 Rx clopidogrel 75 mg tablet 75 mg PO QAM #0 tabs 08/21/23 09/05/23 Rx sulfamethoxazole 800 1 tab PO Q12H 7 days #14 tabs 09/03/23 09/05/23 Rx mg-trimethoprim 160 mg tablet (Bactrim DS) metoprolol succinate 25 mg 12.5 mg (1/2 x 25 mg) PO DAILY #30 09/04/23 09/05/23 Rx tablet,extended release 24 hr tabs (Toprol XL) amiodarone 200 mg tablet 200 mg PO QDB 09/05/23 09/05/23 History docusate sodium 100 mg capsule 100 mg PO QPM 09/05/23 09/05/23 History (Colace) nitroglycerin 0.4 mg sublingual 0.4 mg sublingual Q5M PRN Chest 09/05/23 09/05/23 History tablet (Nitrostat) Pain polyethylene glycol 3350 17 17 g PO DAILY PRN Constipation 09/05/23 09/05/23 History gram/dose oral powder (Miralax) Patient History Medical History Vertebral artery dissection C2 cervical fracture (~08/16/23) comminuted nondisplaced type III fracture of the odontoid process fracture extends into the right body and transverse process of C2, likely involving the transverse foramen-per the Ed report from 08/16/23 the patient fell on 08/06/[address] scans Cardiomyopathy Mild neurocognitive disorder Hyponatremia Benign essential hypertension Closed fracture distal radius and ulna (02/22/23) GERD (gastroesophageal reflux disease) Cardiac murmur Hyperlipidemia Surgical History History of tubal ligation History of dilatation and curettage History of colonoscopy History of tonsillectomy History of adenoidectomy History of cataract surgery R/L Family History Father Prostate cancer Mother Rheumatoid arthritis Osteoarthritis Denies family history of Ovarian cancer Myocardial infarction Breast cancer Colorectal cancer Social History Smoking Status: Never smoker Second Hand Exposure: No; Do You Dip or Chew Tobacco: No; Hx Alcohol Use: Yes Alcohol type: wine Alcohol Intake Frequency: 2-4 x/Month Hx Substance Use: No Preferred Language: Sinhala Communication Ability: Effective Visual Impairment: No Limitations Hearing Ability: Normal Residential Concierge Required: No Beliefs That Will Affect Care: None marital status: Current Living Situation: Spouse current occupational status: retired How many Children do You have: 2 Feels Safe at Home: Yes Childhood Exposure to Second-Hand Smoke: Yes Diet: regular caffeine: Yes during the past year weight has: remained stable Dental Care, Regularly: Yes Physical Activity Frequency: 5-6 Times per Week Seatbelt Use: always Sunscreen Use: Yes Assistive Devices: None Review of Systems Constitutional: no fever Eyes: no problem reported Ear, Nose, Mouth, Throat: no problem reported Respiratory: no cough and no dyspnea Cardiovascular: no chest pain and no palpitations Gastrointestinal: + abdominal pain Integumentary: no rash Neurologic: + generalized weakness; no localized wea kness Physical Exam Constitutional: + frail appearing; not in distress wearing cervical collar Eyes: PERRL, conjunctivae normal, anicteric sclerae ENMT: external ear and nose normal, oropharynx normal Neck: c-collar in place Respiratory: normal respiratory effort, lungs clear to auscultation Cardiovascular: Rate/Rhythm: + irregularly irregular Extremities: no edema Gastrointestinal (Abdomen): normal bowel sounds, soft, nontender, no hepatosplenomegaly Skin: no rashes, warm and dry normal turgor Neurologic: Speech / Cognition: normal speech and normal cognition Psychiatric: Affect: euthymic affect Results & Data Vital Signs (Past 12 Hours) Vital Signs Temp Pulse Pulse Resp BP BP Pulse Ox 09/06/23 11:06 60 09/06/23 08:12 36.5 C 58 L 18 133/78 94 09/06/23 03:15 36.4 C L 62 18 118/76 95 09/06/23 00:32 79 09/05/23 23:42 36.5 C 61 18 123/80 95 O2 Del Method 09/06/23 11:06 09/06/23 08:12 Room Air 09/06/23 03:15 Room Air 09/06/23 00:32 09/05/23 23:42 Room Air Laboratory Results Laboratory Results WBC 5.94 K/ul (4.8-10.8) 09/06/23 07:11 RBC 3.96 M/uL (4.20-5.40) L 09/06/23 07:11 Hgb 11.6 g/dl (12.0-16.0) L 09/06/23 07:11 Hct 33.8 % (37.0-47.0) L 09/06/23 07:11 MCV 85.4 fL (80.0-100.0) 09/06/23 07:11 MCH 29.3 pg (25.0-34.0) 09/06/23 07:11 MCHC 34.3 g/dL (32.0-36.0) 09/06/23 07:11 RDW Std Deviation 44.8 fL (36.4-46.3) 09/06/23 07:11 RDW Coeff of Gloria 14.6 % (11.5-14.5) H 09/06/23 07:11 Plt Count 241 K/uL (130-400) 09/06/23 07:11 MPV 10.4 fL (9.4-12.4) 09/06/23 07:11 Immature Gran % (Auto) 0.2 % 09/06/23 07:11 Neut % (Auto) 50.4 % 09/06/23 07:11 Lymph % (Auto) 26.6 % 09/06/23 07:11 Mchenry % (Auto) 10.4 % 09/06/23 07:11 Eos % (Auto) 12.1 % 09/06/23 07:11 Baso % (Auto) 0.3 % 09/06/23 07:11 Neut # (Auto) 2.99 K/uL (1.40-6.50) 09/06/23 07:11 Lymph # (Auto) 1.58 K/uL (1.20-3.40) 09/06/23 07:11 Mchenry # (Auto) 0.62 K/uL (0.11-0.59) H 09/06/23 07:11 Eos # (Auto) 0.72 K/uL (0.00-0.50) H 09/06/23 07:11 Baso # (Auto) 0.02 K/uL (0.00-0.20) 09/06/23 07:11 Immature Gran # (Auto) 0.01 K/uL (0.01-0.20) 09/06/23 07:11 PT 11.4 Seconds (9.0-12.0) 09/05/23 12:54 INR 1.1 (0.9-1.1) 09/05/23 12:54 APTT 31 Seconds (21-31) 09/05/23 12:54 PTT Ratio 1.2 09/05/23 12:54 Sodium 128 mmol/L (136-145) L 09/06/23 07:11 Potassium 4.4 mmol/L (3.5-5.1) 09/06/23 07:11 Chloride 99 mmol/L (98-107) 09/06/23 07:11 Carbon Dioxide 22 mmol/L (21-32) 09/06/23 07:11 Anion Gap 7 (3-11) 09/06/23 07:11 BUN 6 mg/dl (6-23) 09/06/23 07:11 Creatinine 0.70 mg/dl (0.6-1.2) 09/06/23 07:11 Est Cr Clr Drug Dosing 50.4 ml/min 09/06/23 07:11 Est GFR ( Amer) 92.9 ml/min 09/06/23 07:11 Est GFR (Non-Af Amer) 80.1 ml/min 09/06/23 07:11 BUN/Creatinine Ratio 8.6 (10-20) L 09/06/23 07:11 Glucose 100 mg/dl (70-99(Fasting)) H 09/06/23 07:11 Osmolality 263 mOsm/kg (280-300) L 09/05/23 12:54 Calcium 8.2 mg/dl (8.6-10.3) L 09/06/23 07:11 Magnesium 1.9 mg/dl (1.7-2.4) 09/05/23 12:54 Total Bilirubin 0.4 mg/dl (0.2-1.0) 09/05/23 12:54 AST 28 U/L (13-39) 09/05/23 12:54 ALT 24 U/L (7-52) 09/05/23 12:54 Alkaline Phosphatase 88 U/L (34-104) 09/05/23 12:54 Troponin I High Sens 37.3 pg/ml (0-14) H 09/05/23 12:54 Total Protein 7.7 gm/dl (6.0-8.3) 09/05/23 12:54 Albumin 4.0 gm/dl (3.4-5.0) 09/05/23 12:54 Globulin 3.7 gm/dl (2.5-4.0) 09/05/23 12:54 Albumin/Globulin Ratio 1.1 (0.9-2) 09/05/23 12:54 TSH 4.969 uIu/ml (0.300-4.500) H 09/05/23 12:54 Free T4 1.28 ng/dl (0.61-1.60) 09/05/23 17:07 Random Cortisol 17.67 mcg/dl 09/05/23 17:08 Urine Color Yellow 09/06/23 03:00 Urine Appearance Clear (Clear) 09/06/23 03:00 Urine pH 7.5 (4.5-7.5) 09/06/23 03:00 Ur Specific Freeland 1.009 (1.000-1.030) 09/06/23 03:00 Urine Protein Negative (Negative) 09/06/23 03:00 Urine Glucose (UA) Negative (Negative) 09/06/23 03:00 Urine Ketones Trace (Negative) H 09/06/23 03:00 Urine Blood Negative (Negative) 09/06/23 03:00 Urine Nitrite Negative (Negative) 09/06/23 03:00 Urine Bilirubin Negative (Negative) 09/06/23 03:00 Urine Urobilinogen Negative (Negative) 09/06/23 03:00 Ur Leukocyte Esterase Negative (Negative) 09/06/23 03:00 Urine Osmolality 281 mOsm/kg (500-800) L 09/06/23 03:00 Ur Random Sodium 78 mmol/L 09/06/23 03:[address] 09/05/23 14:31 CT SCAN OF THE CERVICAL SPINE CLINICAL HISTORY: Falls. Weakness. Known fracture. COMPARISON STUDY: Recent prior CT scans of the cervical spine, most recently dated 09/03/2023. TECHNIQUE: CT scan of the cervical spine is performed from the skull base to the upper thoracic spine. Images are reviewed in the axial, sagittal, and coronal planes. IV contrast was not administered for this examination. A dose lowering technique was utilized adhering to the principles of ALARA. CT DOSE: 998.86 mGy.cm FINDINGS: Skeletal structures: The skeletal structures are osteopenic. Again seen is a subacute comminuted nondisplaced type III fracture of the odontoid process. This extends into the right lateral body and transverse process of C2, and likely involves the right transverse foramen at this level. No new fracture is identified. Vertebral body height and alignment are maintained. There is straightening of the cervical lordosis. Anterior osteophytes are seen throughout. The odontoid process and lateral masses are intact. The atlantoaxial articulation is preserved noting productive degenerative change. The spinous processes appear intact. Intervertebral discs: There is moderate disc space narrowing at C3-C4, C4-C5, and C5-C6. Mild narrowing is seen at the remaining cervical levels. Central canal: Posterior disc osteophyte complexes are seen at all cervical levels between C2-C3 and C5-C6. This likely contributes to multilevel acquired compromise of the central canal. Soft tissues: The prevertebral and paraspinous soft tissues are within normal limits. There is atherosclerotic calcification of the carotid bulbs. Calvarium: The visualized calvarium at the skull base appears intact. Brain parenchyma: Partially visualized brain parenchyma at the skull base is within normal limits. Sinuses and mastoids: The visualized paranasal sinuses are clear. The mastoid air cells are well pneumatized. Lung apices: Clear as visualized. IMPRESSION: 1. Again seen is a subacute, comminuted, and nondisplaced type III fracture of the odontoid process with extension into the right body and transverse process of C2. Alignment is unchanged from 09/03/2023. 2. No new fracture is seen. There is no subluxation. 3. Osteopenia and spondylotic change as above. ACT 112: Negative or not required by law. Electronically signed by: Brandon Siegel M.D. 09/05/2023 3:[address] 09/05/23 14:31 CT OF THE HEAD WITHOUT CONTRAST CLINICAL HISTORY: weakness, recent fall, C spine fx COMPARISON STUDY: Head CT September 03, 2023. TECHNIQUE: Helical axial images of the head were obtained without IV contrast. Automated exposure control was utilized for the study. A dose lowering technique was utilized adhering to the principles of ALARA. FINDINGS: No acute intracranial hemorrhage, midline shift or mass effect is present. The ventricular system is stable. White matter hypodensities favor small vessel disease. Hypodensities within the bilateral basal ganglia are again noted. The basal cisterns are patent. No extra-axial collections are present. There are no findings to suggest acute dural sinus thrombosis or acute territorial infarct. No significant calvarial abnormalities are present. Visualized portions of the sinuses and mastoid air cells are clear. IMPRESSION: 1. No acute intracranial findings. No change in appearance of the brain. 2. No calvarial fractures. ACT 112: Negative or not required by law. Electronically signed by: Jordy Bray M.D. 09/05/2023 3:55 PM Chest X-Ray 09/06/23 07:13 XR chest 1V portable CLINICAL HISTORY: weakness, hyponatremia COMPARISON STUDY: Chest radiograph August 16, 2023. FINDINGS: Lung volumes are normal. Lungs are clear. There is no pneumothorax or pleural effusion. Cardiac size is normal. Mediastinal contours are normal. There is no evidence for pulmonary edema. IMPRESSION: No acute cardiopulmonary findings. ACT 112: Negative or not required by law. Electronically signed by: Jordy Bray M.D. 09/06/2023 7:35 AM PG Care Time/CCT Total # of Minutes Spent Total Time Spent with Patient: Total time spent is greater than 50% in coordination of care (as documented) at patient's floor/unit and/or counseling patient: Coding Level of Care Code 72714 IN/OBS CONSULT LVL 5,80M Diagnoses Hyponatremia E87.1 Generalized weakness R53.1 Paroxysmal atrial fibrillation I48.0 Atrial fibrillation type: paroxysmal ST elevation (STEMI) myocardial infarction I21.02 Involved coronary artery: LAD coronary artery Odontoid fracture S12.110A (3) Atrial fibrillation Atrial fibrillation type: paroxysmal Qualified Code(s): I48.0 - Paroxysmal atrial fibrillation (4) ST elevation (STEMI) myocardial infarction Involved coronary artery: LAD coronary artery Qualified Code(s): I21.02 - ST elevation (STEMI) myocardial infarction involving left anterior descending coronary artery
--- NOTE | 2023-09-06 12:49 | Hospitalist Progress Note ---
Date of Service September 06, 2023 Assessment & Plan (1) Generalized weakness: Plan: Correct hyponatremia. Continue OT and PT while hospitalized. 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 Hypoosmolarity noted. Fluid restriction implemented. Discontinue IV fluids. Continue oral salt tablets. Serial labs (3) Acute anterior wall CT: Plan: Recent. She had a distal LAD PCI and stent placed. Continue current medical management. No current chest pain (4) CAD (coronary artery disease): Plan: Stable. Continue current medical management (5) C2 cervical fracture: Plan: Recent. Hard cervical collar is in place (6) Atrial fibrillation: Plan: Paroxysmal. She takes Eliquis chronically. She is currently in normal sinus rhythm (7) Cardiomyopathy: Plan: Ischemic. Ejection fraction 35 to 40%. Continue current medical management Plan Hopeful return to [facility] soon Admission and Anticipated Discharge Date Admission Date: September 05, 2023 Subjective Alert and oriented. is at the bedside. 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 IV fluids have been discontinued and fluid restriction implemented. Continue sodium chloride tablets at twice daily dosing. Portable chest x-ray is negative. The has requested a dietary evaluation which has been ordered. OT and PT assessments requested. She probably will need to return to [facility]. She was recently discharged from there. Review of Systems 2 Review of Systems: Constitutional-no fever or chills ENT-no blurred vision, no double vision, no epistaxis, no sore throat Respiratory-no cough, no wheezing, no shortness of breath Cardiac-no palpitations, no chest pain, no syncope GI-no nausea, vomiting, diarrhea, melena, hematochezia -no urinary retention, no urinary incontinence, no dysuria, no hematuria Musculoskeletal-no joint pain, no muscle tenderness Skin-no bruising, no rashes, no pruritus Neuro-generalized weakness Psych-no depression, no anxiety Physical Exam 2 Constitutional: General-alert and oriented x3, no fever, no chills HEENT-head atraumatic and normocephalic, pupils equal and reactive to light, extraocular muscles intact Neck-hard cervical collar in place Lungsclear to auscultation. No rales, wheezing or rhonchi Cardiac-regular rate and rhythm, normal S1 and S2 Abdomen-normal bowel sounds, no hepatosplenomegaly Extremities-no cyanosis, clubbing, or edema Neuro-cranial nerves II through XII intact, motor and sensory function within normal limits, strength symmetrical with generalized weakness, no focal deficits Psych-normal affect, normal mood Results & Data Results & Data Vital Signs (Past 12 Hours) Vital Signs Temp Pulse Pulse Resp BP BP Pulse Ox 09/06/23 11:56 36.7 C 69 18 119/61 92 09/06/23 11:06 60 09/06/23 08:12 36.5 C 58 L 18 133/78 94 09/06/23 03:15 36.4 C L 62 18 118/76 95 O2 Del Method 09/06/23 11:56 Room Air 09/06/23 11:06 09/06/23 08:12 Room Air 09/06/23 03:15 Room Air Laboratory Results 09/06/23 07:11 09/06/23 07:11 PG Care Time/CCT Total # of Minutes Spent Total Time Spent with Patient: Total time spent is greater than 50% in coordination of care (as documented) at patient's floor/unit and/or counseling patient: Coding Level of Care Code 60419 SUB INP/OBS CARE 3/50MIN Diagnoses Generalized weakness R53.1 Acute hyponatremia E87.[address] I21.09 CAD (coronary artery disease) I25.10 Other closed nondisplaced fracture of second cervical vertebra, initial encounter S12.191A Encounter type: initial encounter Fracture type: closed Fracture morphology: other fracture Fracture alignment: nondisplaced Paroxysmal atrial fibrillation I48.0 Atrial fibrillation type: paroxysmal Cardiomyopathy I42.9 (5) C2 cervical fracture Encounter type: initial encounter Fracture type: closed Fracture morphology: other fracture Fracture alignment: nondisplaced Qualified Code(s): S12.191A - Other nondisplaced fracture of second cervical vertebra, initial encounter for closed fracture (6) Atrial fibrillation Atrial fibrillation type: paroxysmal Qualified Code(s): I48.0 - Paroxysmal atrial fibrillation
[2023-09-06] MEDS ORDERED: SODIUM CHLORIDE 1 GM TABLET PO SCH (13:00)
[2023-09-06] MEDS: ONDANSETRON 4 MG OD TAB PO PRN (13:43)
[2023-09-06 15:29] LABS: BUN Creatinine Ratio 9.1 (10-20); Calcium 8.8 mg/dl (8.6-10.3); Creatinine Clr Calc Pharmacy 41.6 ml/min; Est GFR (African American) 82.8 ml/min; Est GFR (Non-African American) 71.4 ml/min; Potassium 3.9 mmol/L (3.5-5.1)
[2023-09-06] MEDS: SODIUM CHLORIDE 1 GM TABLET PO STA (17:27)
[2023-09-06] MEDS: ONDANSETRON INJ 2 MG/ML 2 ML VIAL IV PRN (17:56)
[2023-09-06] MEDS: SODIUM CHLORIDE 1 GM TABLET PO SCH (20:15)
[2023-09-06] MEDS: POLYETHYLENE (MIRALAX) 17 GM PACK PO PRN (20:15)
[2023-09-07 07:26] LABS: Basophils # (auto) 0.06 K/uL (0.00-0.20); Basophils % (auto) 0.7 %; Eosinophils # (auto) 0.58 K/uL (0.00-0.50); Eosinophils % (auto) 6.5 %; Hematocrit (blood only) 34.8 % (37.0-47.0); Hemoglobin 11.9 g/dl (12.0-16.0); Immature Granulocytes # (auto) 0.02 K/uL (0.01-0.20); Immature Granulocytes % (auto) 0.2 %; Lymphocytes # (auto) 1.77 K/uL (1.20-3.40); Lymphocytes % (auto) 19.7 %; Mean Corpuscular Hemoglobin 29.5 pg (25.0-34.0); Mean Corpuscular Hgb Conc 34.2 g/dL (32.0-36.0); Mean Corpuscular Volume 86.4 fL (80.0-100.0); Mean Platelet Volume 10.2 fL (9.4-12.4); Monocytes # (auto) 1.09 K/uL (0.11-0.59); Monocytes % (auto) 12.2 %; Neutrophils # (auto) 5.45 K/uL (1.40-6.50); Neutrophils % (auto) 60.7 %; Platelet Count 258 K/uL (130-400); RDW Coefficient of Variation 13.8 % (11.5-14.5); RDW Standard Deviation 43.5 fL (36.4-46.3); Red Blood Count 4.03 M/uL (4.20-5.40); White Blood Count 8.97 K/ul (4.8-10.8)
[2023-09-07 07:31] LABS: BUN Creatinine Ratio 12.9 (10-20); Calcium 8.5 mg/dl (8.6-10.3); Creatinine Clr Calc Pharmacy 45.7 ml/min; Est GFR (African American) 92.9 ml/min; Est GFR (Non-African American) 80.1 ml/min; Potassium 4.4 mmol/L (3.5-5.1)
[2023-09-07] MEDS ORDERED: STAT IV/IM STA ×2 (09:25→14:54)
--- NOTE | 2023-09-07 09:29 | Nephrology Progress Note ---
Date of Service September 07, 2023 Assessment & Plan (1) Hyponatremia: Plan: * Mild, asymptomatic hyponatremia dating back to 03/02 * Recent worsening of hyponatremia likely related to NSTEMI, odontoid fracture/pain * Uosm inappropriately elevated in the setting of low serum Na * Patient appears clinically euvolemic * Hypothyroidism is in the context of amiodarone therapy and free T4 is normal * Stop saline infusion, hold NaCl tablets * Will provide 100 cc 3% NaCl this am. Order was discussed w/ RN * Continue Furosemide 20 mg po qAM to promote free water excretion * Will repeat BMP at 12 noon today and again in am (2) Generalized weakness: Plan: * Requesting transfer to [facility] following this hospitalization (3) Atrial fibrillation: Plan: * On amiodarone, apixaban (4) ST elevation (STEMI) myocardial infarction: Plan: * STEMI 08/16/23 requiring PCI w/ MICHELL of distal LAD lesion * 08/16/23 Echo: LVEF 35-40%, normal RV size and function, no significant valvular pathology (5) Odontoid fracture: Admission and Anticipated Discharge Date Admission Date: September 05, 2023 Subjective Mrs. Ann was evaluated in her hospital room this morning. Her was present at bedside. Mrs. Ann denied LEONARDO, angina, dyspnea. She still has generalized weakness. Her was inquiring about transfer to [facility] following this hospital admission Review of Systems Constitutional: no fever Eyes: no problem reported Ear, Nose, Mouth, Throat: no problem reported Respiratory: no cough and no dyspnea Cardiovascular: no chest pain and no palpitations Gastrointestinal: + abdominal pain Integumentary: no rash Neurologic: + generalized weakness; no localized wea kness Physical Exam Constitutional: + frail appearing; not in distress Eyes: PERRL, conjunctivae normal, anicteric sclerae ENMT: external ear and nose normal, oropharynx normal Respiratory: normal respiratory effort, lungs clear to auscultation Cardiovascular: Rate/Rhythm: + irregularly irregular Extremities: no edema Gastrointestinal (Abdomen): normal bowel sounds, soft, nontender, no hepatosplenomegaly Skin: no rashes, warm and dry normal turgor Neurologic: Speech / Cognition: normal speech and normal cognition Psychiatric: Affect: euthymic affect Results & Data Vital Signs (Past 12 Hours) Vital Signs Temp Pulse Pulse Resp BP Pulse Ox O2 Del Method 09/07/23 07:36 49 L 09/07/23 07:05 36.6 C 57 L 16 123/72 94 Room Air 09/07/23 04:15 36.5 C 59 L 18 114/70 94 Room Air 09/06/23 23:12 36.7 C 64 20 108/61 96 Room Air 09/06/23 21:55 55 L Laboratory Results Laboratory Results - last 24 hr 09/06/23 09/07/23 14:40 06:23 WBC 8.97 RBC 4.03 L Hgb 11.9 L Hct 34.8 L MCV 86.4 MCH 29.5 MCHC 34.2 RDW Std Deviation 43.5 RDW Coeff of Gloria 13.8 Plt Count 258 MPV 10.2 Immature Gran % (Auto) 0.2 Neut % (Auto) 60.7 Lymph % (Auto) 19.7 [place] % (Auto) 12.2 Eos % (Auto) 6.5 Baso % (Auto) 0.7 Neut # (Auto) 5.45 Lymph # (Auto) 1.77 Hardeman # (Auto) 1.09 H Eos # (Auto) 0.58 H Baso # (Auto) 0.06 Immature Gran # (Auto) 0.02 Sodium 126 L 127 L Potassium 3.9 4.4 Chloride 94 L 96 L Carbon Dioxide 26 25 Anion Gap 6 6 BUN 7 9 Creatinine 0.77 0.70 Est Cr Clr Drug Dosing 41.6 45.7 Est GFR ( Amer) 82.8 92.9 Est GFR (Non-Af Amer) 71.4 80.1 BUN/Creatinine Ratio 9.1 L 12.9 Glucose 109 H 103 H Calcium 8.8 8.5 L PG Care Time/CCT Total # of Minutes Spent Total Time Spent with Patient: Total time spent is greater than 50% in coordination of care (as documented) at patient's floor/unit and/or counseling patient: Coding Level of Care Code 42502 SUB INP/OBS CARE 3/50MIN Diagnoses Hyponatremia E87.1 Generalized weakness R53.1 Paroxysmal atrial fibrillation I48.0 Atrial fibrillation type: paroxysmal ST elevation (STEMI) myocardial infarction I21.02 Involved coronary artery: LAD coronary artery Odontoid fracture S12.110A (3) Atrial fibrillation Atrial fibrillation type: paroxysmal Qualified Code(s): I48.0 - Paroxysmal atrial fibrillation (4) ST elevation (STEMI) myocardial infarction Involved coronary artery: LAD coronary artery Qualified Code(s): I21.02 - ST elevation (STEMI) myocardial infarction involving left anterior descending coronary artery
[2023-09-07] MEDS: SODIUM CHLORIDE 3 % 100 ML IV ONE ×2 (10:15→15:10)
--- NOTE | 2023-09-07 12:13 | Hospitalist Progress Note ---
Date of Service September 07, 2023 Assessment & Plan (1) Generalized weakness: Plan: Correct hyponatremia. Continue OT and PT while hospitalized. 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 Hypoosmolarity noted. Fluid restriction implemented. Nephrology consultation and recommendations appreciated. She is receiving hypertonic saline today and repeat lab is pending. Sodium chloride tablets are on hold. Serial labs (3) Acute anterior wall [place]: Plan: Recent. She had a distal LAD PCI and stent placed. Continue current medical management. No current chest pain (4) CAD (coronary artery disease): Plan: Stable. Continue current medical management (5) C2 cervical fracture: Plan: Recent. Hard cervical collar is in place (6) Atrial fibrillation: Plan: Paroxysmal. She takes Eliquis chronically. She is currently in normal sinus rhythm (7) Cardiomyopathy: Plan: Ischemic. Ejection fraction 35 to 40%. Continue current medical management Plan Hopeful return to [facility] soon Admission and Anticipated Discharge Date Admission Date: September 05, 2023 Subjective Alert and oriented to name and place. is at the bedside. No new problems. Nephrology entry noted. She is receiving hypertonic saline for sodium of 127. Sodium chloride supplements are on hold. Repeat sodium level will be done later today Review of Systems 2 Review of Systems: Constitutional-no fever or chills ENT-no blurred vision, no double vision, no epistaxis, no sore throat Respiratory-no cough, no wheezing, no shortness of breath Cardiac-no palpitations, no chest pain, no syncope GI-no nausea, vomiting, diarrhea, melena, hematochezia -no urinary retention, no urinary incontinence, no dysuria, no hematuria Musculoskeletal-no joint pain, no muscle tenderness Skin-no bruising, no rashes, no pruritus Neuro-generalized weakness Psych-no depression, no anxiety Physical Exam 2 Physical Exam: General-alert and oriented x3, no fever, no chills HEENT-head atraumatic and normocephalic, pupils equal and reactive to light, extraocular muscles intact Neck-hard cervical collar in place Chest-clear to auscultation. No rales, wheezing or rhonchi Cardiac-regular rate and rhythm, normal S1 and S2 Abdomen-normal bowel sounds, no hepatosplenomegaly Extremities-no cyanosis, clubbing, or edema Neuro-cranial nerves II through XII intact, motor and sensory function within normal limits, strength symmetrical with generalized weakness, no focal deficits Psych-normal affect, normal mood Results & Data Results & Data Vital Signs (Past 12 Hours) Vital Signs Temp Pulse Pulse Resp BP Pulse Ox O2 Del Method 09/07/23 11:45 36.7 C 60 18 112/66 92 Room Air 09/07/23 07:36 49 L 09/07/23 07:05 36.6 C 57 L 16 123/72 94 Room Air 09/07/23 04:15 36.5 C 59 L 18 114/70 94 Room Air Laboratory Results 09/07/23 06:23 09/07/23 06:23 PG Care Time/CCT Total # of Minutes Spent Total Time Spent with Patient: Total time spent is greater than 50% in coordination of care (as documented) at patient's floor/unit and/or counseling patient: Coding Level of Care Code 68547 SUB INP/OBS CARE 2/35MIN Diagnoses Generalized weakness R53.1 Acute hyponatremia E87.1 Acute anterior wall [place] I21.09 CAD (coronary artery disease) I25.10 Other closed nondisplaced fracture of second cervical vertebra, initial encounter S12.191A Encounter type: initial encounter Fracture type: closed Fracture morphology: other fracture Fracture alignment: nondisplaced Paroxysmal atrial fibrillation I48.0 Atrial fibrillation type: paroxysmal Cardiomyopathy I42.9 (5) C2 cervical fracture Encounter type: initial encounter Fracture type: closed Fracture morphology: other fracture Fracture alignment: nondisplaced Qualified Code(s): S12.191A - Other nondisplaced fracture of second cervical vertebra, initial encounter for closed fracture (6) Atrial fibrillation Atrial fibrillation type: paroxysmal Qualified Code(s): I48.0 - Paroxysmal atrial fibrillation
[2023-09-07 12:44] LABS: BUN Creatinine Ratio 11.5 (10-20); Calcium 8.8 mg/dl (8.6-10.3); Est GFR (African American) 81.5 ml/min; Est GFR (Non-African American) 70.3 ml/min; Potassium 4.2 mmol/L (3.5-5.1)
[2023-09-07 17:04] LABS: Calcium 8.5 mg/dl (8.6-10.3); Est GFR (African American) 76.7 ml/min; Est GFR (Non-African American) 66.2 ml/min; Potassium 3.8 mmol/L (3.5-5.1)
[2023-09-08 06:27] LABS: Basophils # (auto) 0.04 K/uL (0.00-0.20); Eosinophils # (auto) 0.31 K/uL (0.00-0.50); Eosinophils % (auto) 7.5 %; Hematocrit (blood only) 35.4 % (37.0-47.0); Hemoglobin 12.1 g/dl (12.0-16.0); Immature Granulocytes # (auto) 0.01 K/uL (0.01-0.20); Immature Granulocytes % (auto) 0.2 %; Lymphocytes # (auto) 1.53 K/uL (1.20-3.40); Mean Corpuscular Hemoglobin 29.7 pg (25.0-34.0); Mean Corpuscular Hgb Conc 34.2 g/dL (32.0-36.0); Mean Corpuscular Volume 86.8 fL (80.0-100.0); Mean Platelet Volume 9.9 fL (9.4-12.4); Monocytes # (auto) 0.44 K/uL (0.11-0.59); Monocytes % (auto) 10.6 %; Neutrophils # (auto) 1.81 K/uL (1.40-6.50); Neutrophils % (auto) 43.7 %; Platelet Count 252 K/uL (130-400); RDW Coefficient of Variation 14.4 % (11.5-14.5); RDW Standard Deviation 44.9 fL (36.4-46.3); Red Blood Count 4.08 M/uL (4.20-5.40); White Blood Count 4.14 K/ul (4.8-10.8)
[2023-09-08 06:56] LABS: BUN Creatinine Ratio 13.5 (10-20); Calcium 8.4 mg/dl (8.6-10.3); Creatinine Clr Calc Pharmacy 39.7 ml/min; Est GFR (African American) 86.8 ml/min; Est GFR (Non-African American) 74.9 ml/min
[2023-09-08] MEDS ORDERED: SODIUM CHLORIDE 1 GM TABLET PO SCH ×2 (09:00→13:00)
--- NOTE | 2023-09-08 09:07 | Nephrology Progress Note ---
Date of Service September 08, 2023 Assessment & Plan (1) Hyponatremia: Plan: * Mild, asymptomatic hyponatremia (Na 130-133 mmol/L) dating back to 03/02 * Recent worsening of hyponatremia likely related to NSTEMI, odontoid fracture/pain * Uosm inappropriately elevated in the setting of low serum Na * Patient appears clinically euvolemic * Hypothyroidism is in the context of amiodarone therapy and free T4 is normal * Sodium has improved to 129 mmol/L following 3% NaCl infusion * Resume NaCl 2 g po BID * Continue Furosemide 20 mg po qAM to promote free water excretion * Will order BMP, Uosm for am (2) Generalized weakness: Plan: * Case management has been consulted to arrange for transfer to [facility] following this hospitalization (3) Atrial fibrillation: Plan: * On amiodarone, apixaban (4) ST elevation (STEMI) myocardial infarction: Plan: * STEMI 08/16/23 requiring PCI w/ MICHELL of distal LAD lesion * 08/16/23 Echo: LVEF 35-40%, normal RV size and function, no significant valvular pathology (5) Odontoid fracture: Admission and Anticipated Discharge Date Admission Date: September 05, 2023 Subjective Mrs. Ann was evaluated in her hospital room this morning. Her was present at bedside. Mrs. Ann denied LEONARDO, angina, dyspnea. She still has generalized weakness and is anxious to begin PT Review of Systems Constitutional: no fever Eyes: no problem reported Ear, Nose, Mouth, Throat: no problem reported Respiratory: no cough and no dyspnea Cardiovascular: no chest pain and no palpitations Gastrointestinal: no abdominal pain Integumentary: no rash Neurologic: + generalized weakness; no localized wea kness Physical Exam Constitutional: + frail appearing; not in distress Eyes: PERRL, conjunctivae normal, anicteric sclerae ENMT: external ear and nose normal, oropharynx normal Respiratory: normal respiratory effort, lungs clear to auscultation Cardiovascular: Rate/Rhythm: + irregularly irregular Extremities: no edema Gastrointestinal (Abdomen): normal bowel sounds, soft, nontender, no hepatosplenomegaly Skin: no rashes, warm and dry normal turgor Neurologic: Speech / Cognition: normal speech and normal cognition Psychiatric: Affect: euthymic affect Results & Data Vital Signs (Past 12 Hours) Vital Signs Temp Pulse Pulse Resp BP Pulse Ox O2 Del Method 09/08/23 07:29 36.8 C 51 L 18 119/51 L 90 Room Air 09/08/23 03:20 36.9 C 51 L 16 121/69 96 Room Air 09/07/23 22:12 36.4 C L 57 L 16 120/71 94 Room Air 09/07/23 21:50 57 L Laboratory Results Laboratory Results - last 24 hr 09/07/23 09/07/23 09/07/23 12:10 12:49 16:29 WBC RBC Hgb Hct MCV MCH MCHC RDW Std Deviation RDW Coeff of Gloria Plt Count MPV Immature Gran % (Auto) Neut % (Auto) Lymph % (Auto) Henry % (Auto) Eos % (Auto) Baso % (Auto) Neut # (Auto) Lymph # (Auto) Henry # (Auto) Eos # (Auto) Baso # (Auto) Immature Gran # (Auto) Sodium 128 L 129 L Potassium 4.2 3.8 Chloride 96 L 97 L Carbon Dioxide 25 24 Anion Gap 7 8 BUN 9 9 Creatinine 0.78 0.82 Est Cr Clr Drug Dosing 41.0 39.0 Est GFR ( Amer) 81.5 76.7 Est GFR (Non-Af Amer) 70.3 66.2 BUN/Creatinine Ratio 11.5 11.0 Glucose 102 H 131 H Calcium 8.8 8.5 L Urine Osmolality 251 L 09/08/23 06:04 WBC 4.14 L RBC 4.08 L Hgb 12.1 Hct 35.4 L MCV 86.8 MCH 29.7 MCHC 34.2 RDW Std Deviation 44.9 RDW Coeff of Gloria 14.4 Plt Count 252 MPV 9.9 Immature Gran % (Auto) 0.2 Neut % (Auto) 43.7 Lymph % (Auto) 37.0 Henry % (Auto) 10.6 Eos % (Auto) 7.5 Baso % (Auto) 1.0 Neut # (Auto) 1.81 Lymph # (Auto) 1.53 Henry # (Auto) 0.44 Eos # (Auto) 0.31 Baso # (Auto) 0.04 Immature Gran # (Auto) 0.01 Sodium 129 L Potassium 4.0 Chloride 98 Carbon Dioxide 24 Anion Gap 7 BUN 10 Creatinine 0.74 Est Cr Clr Drug Dosing 39.7 Est GFR ( Amer) 86.8 Est GFR (Non-Af Amer) 74.9 BUN/Creatinine Ratio 13.5 Glucose 99 Calcium 8.4 L Urine Osmolality PG Care Time/CCT Total # of Minutes Spent Total Time Spent with Patient: Total time spent is greater than 50% in coordination of care (as documented) at patient's floor/unit and/or counseling patient: Coding Level of Care Code 92779 SUB INP/OBS CARE 3/50MIN Diagnoses Hyponatremia E87.1 Generalized weakness R53.1 Paroxysmal atrial fibrillation I48.0 Atrial fibrillation type: paroxysmal ST elevation (STEMI) myocardial infarction I21.02 Involved coronary artery: LAD coronary artery Odontoid fracture S12.110A (3) Atrial fibrillation Atrial fibrillation type: paroxysmal Qualified Code(s): I48.0 - Paroxysmal atrial fibrillation (4) ST elevation (STEMI) myocardial infarction Involved coronary artery: LAD coronary artery Qualified Code(s): I21.02 - ST elevation (STEMI) myocardial infarction involving left anterior descending coronary artery
[2023-09-08] MEDS: DOCUSATE SODIUM 100 MG CAP PO SCH (14:18)
[2023-09-08] MEDS: SODIUM CHLORIDE 1 GM TABLET PO SCH (14:18)
[2023-09-08] MEDS: POLYETHYLENE (MIRALAX) 17 GM PACK PO SCH (14:19)
--- NOTE | 2023-09-08 14:58 | Hospitalist Progress Note ---
Date of Service September 08, 2023 Assessment & Plan (1) Generalized weakness: Plan: Correct hyponatremia. Continue OT and PT while hospitalized. 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 Hypoosmolarity noted. Fluid restriction implemented. Nephrology consultation and recommendations appreciated. She received hypertonic saline yesterday, September 06 and the sodium chloride tablets resumed today, September 07. Sodium has improved to 129. Serial labs (3) Acute anterior wall [place]: Plan: Recent. She had a distal LAD PCI and stent placed. Continue current medical management. No current chest pain (4) CAD (coronary artery disease): Plan: Stable. Continue current medical management (5) C2 cervical fracture: Plan: Recent. Hard cervical collar is in place (6) Atrial fibrillation: Plan: Paroxysmal. She takes Eliquis chronically. She is currently in normal sinus rhythm (7) Cardiomyopathy: Plan: Ischemic. Ejection fraction 35 to 40%. Continue current medical management Plan Hopeful return to [facility] tomorrow, September 08 Admission and Anticipated Discharge Date Admission Date: September 05, 2023 Subjective Alert and oriented. No new problems. Case discussed with nephrology. She has been started back on her sodium chloride tablets. She is now on MiraLAX and Colace twice daily scheduled dosing to treat her constipation. Potassium is stable at 4.0. Hopefully she can go back to [facility] soon. She is medically stable Review of Systems 2 Review of Systems: Constitutional-no fever or chills ENT-no blurred vision, no double vision, no epistaxis, no sore throat Respiratory-no cough, no wheezing, no shortness of breath Cardiac-no palpitations, no chest pain, no syncope GI-no nausea, vomiting, diarrhea, melena, hematochezia -no urinary retention, no urinary incontinence, no dysuria, no hematuria Musculoskeletal-no joint pain, no muscle tenderness Skin-no bruising, no rashes, no pruritus Neuro-generalized weakness Psych-no depression, no anxiety Physical Exam 2 Physical Exam: General-alert and oriented x3, no fever, no chills HEENT-head atraumatic and normocephalic, pupils equal and reactive to light, extraocular muscles intact Neck-hard cervical collar in place Chest-clear to auscultation. No rales, wheezing or rhonchi Cardiac-regular rate and rhythm, normal S1 and S2 Abdomen-normal bowel sounds, no hepatosplenomegaly Extremities-no cyanosis, clubbing, or edema Neuro-cranial nerves II through XII intact, motor and sensory function within normal limits, strength symmetrical with generalized weakness, no focal deficits Psych-normal affect, normal mood Results & Data Results & Data Vital Signs (Past 12 Hours) Vital Signs Temp Pulse Pulse Resp BP Pulse Ox O2 Del Method 09/08/23 14:29 51 L 09/08/23 11:06 36.6 C 50 L 18 102/61 91 Room Air 09/08/23 08:00 46 L 09/08/23 07:29 36.8 C 51 L 18 119/51 L 90 Room Air 09/08/23 03:20 36.9 C 51 L 16 121/69 96 Room Air Laboratory Results 09/08/23 06:04 09/08/23 06:04 PG Care Time/CCT Total # of Minutes Spent Total Time Spent with Patient: Total time spent is greater than 50% in coordination of care (as documented) at patient's floor/unit and/or counseling patient: Coding Level of Care Code 56073 SUB INP/OBS CARE 3/50MIN Diagnoses Generalized weakness R53.1 Acute hyponatremia E87.1 Acute anterior wall [place] I21.09 CAD (coronary artery disease) I25.10 Other closed nondisplaced fracture of second cervical vertebra, initial encounter S12.191A Encounter type: initial encounter Fracture type: closed Fracture morphology: other fracture Fracture alignment: nondisplaced Paroxysmal atrial fibrillation I48.0 Atrial fibrillation type: paroxysmal Cardiomyopathy I42.9 (5) C2 cervical fracture Encounter type: initial encounter Fracture type: closed Fracture morphology: other fracture Fracture alignment: nondisplaced Qualified Code(s): S12.191A - Other nondisplaced fracture of second cervical vertebra, initial encounter for closed fracture (6) Atrial fibrillation Atrial fibrillation type: paroxysmal Qualified Code(s): I48.0 - Paroxysmal atrial fibrillation
[2023-09-09 06:30] LABS: Basophils # (auto) 0.04 K/uL (0.00-0.20); Basophils % (auto) 0.7 %; Eosinophils # (auto) 0.37 K/uL (0.00-0.50); Eosinophils % (auto) 6.7 %; Hematocrit (blood only) 35.9 % (37.0-47.0); Hemoglobin 12.2 g/dl (12.0-16.0); Immature Granulocytes # (auto) 0.02 K/uL (0.01-0.20); Immature Granulocytes % (auto) 0.4 %; Lymphocytes # (auto) 2.07 K/uL (1.20-3.40); Lymphocytes % (auto) 37.5 %; Mean Corpuscular Hemoglobin 29.5 pg (25.0-34.0); Mean Corpuscular Volume 86.7 fL (80.0-100.0); Monocytes # (auto) 0.54 K/uL (0.11-0.59); Monocytes % (auto) 9.8 %; Neutrophils # (auto) 2.48 K/uL (1.40-6.50); Neutrophils % (auto) 44.9 %; Platelet Count 279 K/uL (130-400); RDW Coefficient of Variation 14.5 % (11.5-14.5); RDW Standard Deviation 45.5 fL (36.4-46.3); Red Blood Count 4.14 M/uL (4.20-5.40); White Blood Count 5.52 K/ul (4.8-10.8)
[2023-09-09 07:24] LABS: Calcium 8.3 mg/dl (8.6-10.3); Potassium 4.3 mmol/L (3.5-5.1)
[2023-09-09 07:30] LABS: BUN Creatinine Ratio 15.8 (10-20); Creatinine Clr Calc Pharmacy 39.3 ml/min; Est GFR (African American) 84.1 ml/min; Est GFR (Non-African American) 72.5 ml/min
--- NOTE | 2023-09-09 09:39 | Nephrology Progress Note ---
Date of Service September 09, 2023 Assessment & Plan (1) Hyponatremia: (2) Generalized weakness: Plan 83 year old white female admitted to the hospital on 09/05/2023 with generalized weakness and found to have acute hyponatremia, serum sodium was 126. Prior record review showed history of mild hyponatremia over last few months his sodium around 126-132. Urine osmolality was 391 and TSH was mildly elevated at 4.96. Has normal kidney function (Cr 0.7). Recent history of STEMI 08/16/23 requiring PCI w/ MICHELL of distal LAD lesion, atrial fibrillation (amiodarone, apixaban) and mechanical fall 09/03/23 resulting in odontoid fracture. Initially given normal saline with no improvement in sodium. Started on salt tablet yesterday. Overall doing well. Asymptomatic. Blood pressure controlled. Sodium improved to 131. -- Continue on salt tablet 2 g twice a day, monitor serum sodium as an outpatient and adjust salt tablet dose accordingly. -- Avoid excessive free water intake. Admission and Anticipated Discharge Date Admission Date: September 05, 2023 Subjective Nick was seen and evaluated this morning. Overall she reports feeling well. Pain is manageable. Vital signs stable, blood pressure well-controlled. Sodium improved to 131 on salt tablet 2 g twice a day. Other electrolyte acceptable. Review of Systems Review of Systems: Detailed review of system was done and otherwise unremarkable. Physical Exam Constitutional: WD/WN, vitals as above no acute distress Neck: neck collar in place. Respiratory: Auscultation: lungs clear to auscultation bilaterally Cardiovascular: RRR, no murmur, no edema Skin: no rashes, warm and dry Neurologic: no focal motor deficits and not confused Psychiatric: Orientation: alert and oriented x 3 Results & Data Vital Signs (Past 12 Hours) Vital Signs Temp Pulse Pulse Resp BP Pulse Ox O2 Del Method 09/09/23 07:28 36.5 C 51 L 16 134/71 94 Room Air 09/09/23 05:30 44 L 09/09/23 03:55 36.7 C 53 L 16 126/69 94 Room Air 09/08/23 23:02 36.7 C 54 L 16 114/66 93 Room Air 09/08/23 21:37 46 L PG Care Time/CCT Total # of Minutes Spent Total Time Spent with Patient: Total time spent is greater than 50% in coordination of care (as documented) at patient's floor/unit and/or counseling patient: Coding Level of Care Code 09112 SUB INP/OBS CARE MIN Diagnoses Hyponatremia E87.1 Generalized weakness R53.1
--- NOTE | 2023-09-09 14:37 | Discharge Summary ---
Date of Service September 09, 2023 Admission HPI Per Admitting Provider 83-year-old female with recent admission to the hospital after mechanical fall on August 06, 2023, diagnosis C2 fracture , has collar on, acute CT in August, MICHELL to small distal LAD occlusion, ischemic cardiomyopathy, EF 35-40 %, post CT A-fib with RVR, currently on tapering doses of amiodarone 200 mg daily, vertebral artery dissection chronic, mild cognitive impairment, today patient presents with generalized weakness, she denies fever chills cough or chest pain, denies shortness of breath, reports poor appetite and just feeling lousy, no focal neurological deficit, she has good strength in upper and lower extremities, she is able to ambulate. Her blood work is consistent with hyponatremia sodium level 126, potassium is 5, no other abnormalities. She denies drinking a lot of water, denies diarrhea, denies dizziness lightheadedness, she was recently prescribed Bactrim for urinary tract infection, denies dysuria Principal Diagnosis SIADH, weakness, hyperkalemia, constipation Discharge Exam General-alert and oriented x3, no fever, no chills HEENT-head atraumatic and normocephalic, pupils equal and reactive to light, extraocular muscles intact Neck-hard cervical collar in place Chest-clear to auscultation. No rales, wheezing or rhonchi Cardiac-regular rate and rhythm, normal S1 and S2 Abdomen-normal bowel sounds, no hepatosplenomegaly Extremities-no cyanosis, clubbing, or edema Neuro-cranial nerves II through XII intact, motor and sensory function within normal limits, strength symmetrical with generalized weakness, no focal deficits Psych-normal affect, normal mood Discharge Data Allergies Allergy/AdvReac Type Severity Reaction Status Date / Time amoxicillin [From Augmentin] Allergy Unknown Verified 09/04/23 13:04 clavulanic acid Allergy Unknown Verified 09/04/23 13:04 [From Augmentin] doxycycline Allergy Unknown Verified 09/04/23 13:04 lisinopril Allergy Unknown vomitting Unverified 09/04/23 13:04 Penicillins Allergy Unknown HIVES Verified 09/04/23 13:04 grass pollen AdvReac Unknown Sneezing Verified 09/04/23 13:04 Consultations 09/05/23 16:02 ED Decision to Admit Stat 09/05/23 16:43 Consult Nephrology Stat Ordered Studies 09/05/23 14:31 CT cervical spine wo con Stat CT head/brain wo con Stat Hospital Course (1) Generalized weakness: Correct hyponatremia. Continue OT and PT while hospitalized. (2) Acute hyponatremia: Due to SIADH. Hypoosmolarity noted. Fluid restriction implemented. Nephrology consultation and recommendations appreciated. She received hypertonic saline on September 06 and the sodium chloride tablets resumed on September 07. Sodium has improved to 131. Serial labs (3) Acute anterior wall [place]: Recent. She had a distal LAD PCI and stent placed. Continue current medical management. No current chest pain (4) CAD (coronary artery disease): Stable. Continue current medical management (5) C2 cervical fracture: Recent. Hard cervical collar is in place (6) Atrial fibrillation: Paroxysmal. She takes Eliquis chronically. She is currently in normal sinus rhythm (7) Cardiomyopathy: Ischemic. Ejection fraction 35 to 40%. Continue current medical management Plan Discharge to [facility] today, September 08 Total Time Total Time Spent Total Time Spent (In Minutes): 50 minutes Discharge Plan Discharge Items Patient Disposition: Transfer Inpatient Rehab Fac Reason For Visit: HYPONATREMIA Discharge Diagnosis: SIADH, hyperkalemia, weakness, constipation Activity: Resume your previous activity Non-emergency contact: Primary Care Provider, [employer] Spr[employer]er and [employer] Investigator Call non-emergency contact if: you have any medication questions and your symptoms worsen Follow-up/Referrals: Rafael Lazo III, CRNP [Primary Care Provider] - Diet: Regular and Heart Healthy Addtl Attending Provider Instructions: See your PCP as soon as possible after discharge from [facility] Pending Studies at Discharge: No Stand-Alone Forms: My [facility] Skilled Items Patient informed of condition?: Yes DNR: No Discharge Level of Care: Acute rehab Communicable Disease: No Discharge Prognosis: Stable Lines: None Urinary Catheter: No Medications and DC Order Prescriptions: New polyethylene glycol 3350 [Miralax] 17 gram Powder In Packet 17 g PO BID Qty: 0 0RF furosemide 20 mg Tablet 20 mg PO QAM Qty: 0 0RF sodium chloride 1,000 mg Tablet,Soluble 2,000 mg PO BID Qty: 0 0RF Continued omeprazole 40 mg capsule,delayed release(DR/EC) 40 mg PO QAM Qty: 90 3RF ondansetron HCl 4 mg tablet 4 mg PO BID PRN (Reason: nausea and vomiting) 5 Days Qty: 14 0RF sulfamethoxazole-trimethoprim [Bactrim DS] 800-160 mg tablet 1 tab PO Q12H 7 Days Qty: 14 0RF metoprolol succinate [Toprol XL] 25 mg tablet extended release 24 hr 12.5 mg PO DAILY Qty: 30 2RF multivitamin [Multiple Vitamins] Tablet 1 tab PO QAM cholecalciferol (vitamin D3) [Vitamin D3] 2,000 unit Capsule 2,000 unit PO QPM calcium carbonate-vitamin D3 [Calcium 500 + D] 500 mg(1,250mg) -200 unit tablet 1 tab PO QAM atorvastatin 40 mg Tablet 40 mg PO QAM Qty: 0 0RF clopidogrel 75 mg Tablet 75 mg PO QAM Qty: 0 0RF Eliquis 2.5 mg Tablet 2.5 mg PO BID Qty: 0 0RF amiodarone 200 mg tablet 200 mg PO QDB nitroglycerin [Nitrostat] 0.4 mg tablet, sublingual 0.4 mg sublingual Q5M PRN (Reason: Chest Pain) docusate sodium [Colace] 100 mg Capsule 100 mg PO QPM polyethylene glycol 3350 [Miralax] 17 gram/dose Powder 17 g PO DAILY PRN (Reason: Constipation) Discharge Orders: Discharge Order (Routine); Ordered 09/09/23 Ordered By: Alonzo French Admission Data Admit Date/Time: 09/05/23 17:45 Attending Provider: Alonzo French Admit Provider: Krystal Zamorano Primary Care Provider: Rafael Lazo III Other Providers: Krystal Zamorano; Angela Falcon; [facility]; [facility] Coding Level of Care Code 26853 INP/OBS DISCH >30 MIN Diagnoses Generalized weakness R53.1 Acute hyponatremia E87.[address] I21.09 CAD (coronary artery disease) I25.10 Other closed nondisplaced fracture of second cervical vertebra, initial encounter S12.191A Encounter type: initial encounter Fracture type: closed Fracture morphology: other fracture Fracture alignment: nondisplaced Paroxysmal atrial fibrillation I48.0 Atrial fibrillation type: paroxysmal Cardiomyopathy I42.9
== END 2023-09-09 17:36 | DRG 643 ==
LOC: ED 11:47 → SUATTDRO 17:45 → EDINP 17:45 → 2W 23:26

== ENCOUNTER 2024-06-04 14:05 | Inpatient (IN) ==
--- NOTE | 2024-06-04 14:31 | Emergency Department Note ---
Impression & Plan Acute hyponatremia, Fatigue ED Provider Note NAME: BUBBA VEGA AGE: 83 SEX: F : 1940 ARRIVES VIA: Walk-In INFORMANT: Patient, ED PROVIDER(S): Harjeet Puckett MD CHIEF COMPLAINT: Abnormal outpatient blood work, referral MEDICAL DECISION MAKING: Patient presents with the above with associated hyponatremia. Review of the patient's blood work from earlier prior to arrival was sodium of 126. This is an acute change from 136 prior. Patient did have a CBC and a BMP ordered. Urine and serum osmolality ordered in addition to urine electrolytes. Given the patient already had blood work prior to arrival necessitating admission of the speak the on-call hospital service Dr. Bowen and the patient was admitted to the medicine service. Blood work during the visit was repeated and showed a normal white count hemoglobin and platelet count. The patient's kidney function was unremarkable. Patient's sodium was 124. BioFire negative. Discussion w/ other healthcare providers: Dr. Bowen inpatient medicine service Prior /Outside records reviewed: I reviewed the patient's labs that were completed earlier today which did show a sodium of 126. Differential diagnosis: Infection, dehydration, metabolic abnormality, hypo/hyperglycemia, electrolyte imbalance, anemia, UTI, pneumonia, thyroid dysfunction among others were considered. Diagnostics, as interpreted by me: ECG: None Cardiac monitoring: An order was placed for continuous cardiac monitoring. The monitor shows a rate of 67 with sinus rhythm. Patient was placed on pulse oximetry Medical decision rules: None Imaging studies: None HPI: Patient presents due to concern for abnormal outpatient blood work with a low sodium. The patient reports that she has been weak and fatigued ever since mid March and did have some blood work that was completed 2 days ago but did not see those results and had repeat blood work completed today by her outpatient provider. She was called about the results noting low sodium and was referred here. Patient does feel as though her weakness and fatigue has improved. The patient states that she does not add salt to her diet and denies any big changes. Patient denies any diuretic use. Patient denies any thyroid dysfunction. Patient reports that she does drink a fair amount of water but may "not drink enough water." Patient denies any abdominal pain and no vomiting or diarrhea. PAST MEDICAL HISTORY: See Below PAST SURGICAL HISTORY: See Below SOCIAL HISTORY: See Below HOME MEDICATIONS: See Below ALLERGIES: See Below VITALS: See Below PHYSICAL EXAMINATION: GENERAL: NAD, non-toxic. EYE EXAM: Normal conjunctiva. PERRL, no anisocoria and EOM's grossly intact w/o pain. OROPHARYNX: Moist mucus membranes, grossly normal dentition. NECK: Trachea midline, no stridor. LUNGS: Clear to auscultation. Normal chest wall mechanics. HEART: NSR, no MRG. ABDOMEN: Abdomen soft, non-tender, no masses, no rebound or guarding. BACK: No CVA TTP. SKIN: No rashes and no bruising. UPPER EXTREMITIES: Upper extremities are grossly normal. LOWER EXTREMITIES: Grossly normal, no edema. NEURO EXAM: A&O x3, cranial nerves II-XII grossly intact, normal speech, moves all 4 extremities. Past Med/Surg History Problem List (Updated 06/04/24 @ 19:58 by Harjeet Puckett MD) Fatigue (Acute) Acute hyponatremia (Acute) Hyponatremia Mild neurocognitive disorder GERD (gastroesophageal reflux disease) Hyperlipidemia Benign essential hypertension CAD (coronary artery disease) (Chronic) Abnormal SPEP Generalized weakness (Acute) Acute hyponatremia (Chronic) Fall (Acute) Neck pain (Acute) Allergic rhinitis (Acute) Laryngopharyngeal reflux (Acute) Osteoporosis (Chronic) Medical History Dyslipidemia Transaminitis Acute anterior wall [place] Odontoid fracture Atrial fibrillation ST elevation (STEMI) myocardial infarction Vertebral artery dissection C2 cervical fracture (~08/16/23) comminuted nondisplaced type III fracture of the odontoid process fracture extends into the right body and transverse process of C2, likely involving the transverse foramen-per the Ed report from 08/16/23 the patient fell on 08/06/[address] scans Cardiomyopathy Closed fracture distal radius and ulna (02/22/23) Cardiac murmur Surgical History H/O heart artery stent History of tubal ligation History of dilatation and curettage History of colonoscopy History of tonsillectomy History of adenoidectomy History of cataract surgery R/L Family History Father Prostate cancer Mother Rheumatoid arthritis Osteoarthritis Denies family history of Ovarian cancer Myocardial infarction Breast cancer Colorectal cancer Social History Smoking Status: Never smoker Second Hand Exposure: No; Do You Dip or Chew Tobacco: No; Hx Alcohol Use: No Hx Substance Use: No Preferred Language: Vincentian Communication Ability: Effective Visual Impairment: No Limitations Hearing Ability: Normal Branch Service Associate Required: No Beliefs That Will Affect Care: None marital status: Current Living Situation: Spouse current occupational status: retired current occupation: Retired How many Children do You have: 2 Other Information That Helps Us Care for You: No Feels Safe at Home: Yes Safety Concerns: Feels Safe At This Time Childhood Exposure to Second-Hand Smoke: Yes Diet: regular caffeine: Yes during the past year weight has: remained stable Dental Care, Regularly: Yes Physical Activity Frequency: 5-6 Times per Week Seatbelt Use: always Sunscreen Use: Yes Assistive Devices: None Allergies Allergies Allergy/AdvReac Type Severity Reaction Status Date / Time amoxicillin [From Augmentin] Allergy Unknown Verified 06/03/24 12:39 clavulanic acid Allergy Unknown Verified 06/03/24 12:39 [From Augmentin] doxycycline Allergy Unknown Verified 06/03/24 12:39 lisinopril Allergy Unknown vomitting Unverified 06/03/24 12:39 Penicillins Allergy Unknown HIVES Verified 06/03/24 12:39 grass pollen AdvReac Unknown Sneezing Verified 06/03/24 12:39 Home Meds Home Medications Medication Instructions Recorded Confirmed cholecalciferol (vitamin D3) 50 2,000 unit PO QPM 11/14/17 06/04/24 mcg (2,000 unit) capsule (Vitamin D3) multivitamin (Multiple Vitamins 1 tab PO QAM 11/14/17 06/04/24 tablet) calcium 500 mg (as 1 tab PO QAM 02/24/19 06/04/24 carbonate)-vitamin D3 5 mcg (200 unit) tablet (Calcium 500 + D) nitroglycerin 0.4 mg sublingual 0.4 mg sublingual Q5M PRN Chest 09/05/23 06/04/24 tablet (Nitrostat) Pain losartan 25 mg tablet 12.5 mg PO QAM 06/04/24 06/04/24 metoprolol succinate 25 mg 12.5 mg PO QAM 06/04/24 06/04/24 tablet,extended release 24 hr (Toprol XL) Previous Rx's Medication Instructions Recorded apixaban 2.5 mg tablet (Eliquis) 2.5 mg PO BID #180 tabs 09/19/23 atorvastatin 40 mg tablet 40 mg PO QAM #90 tabs 09/19/23 clopidogrel 75 mg tablet 75 mg PO QAM #90 tabs 09/19/23 omeprazole 40 mg capsule,delayed 40 mg PO QAM #90 caps 06/02/24 release risedronate 35 mg tablet 35 mg PO Q7D #12 tabs 06/04/24 Results & Data (ED) Vital Signs Vital Signs - 24 hr 06/04/24 14:18 06/04/24 15:05 06/04/24 15:05 Temperature 36.6 C Temperature Source Temporal Artery Scan Pulse Rate 67 Pulse Rate [Apical] Pulse Rate from SpO2 Sensor Pulse Rhythm [Apical] Pulse Strength [Apical] Respiratory Rate 20 Respiratory Effort / Characteristics Non-Labored Spontaneous Respiratory Depth Normal Respiratory Pattern Blood Pressure 113/75 134/66 134/66 Blood Pressure [Left Arm] Blood Pressure Mean 87 78 78 Blood Pressure Mean [Left Arm] Blood Pressure Position [Left Arm] Pulse Oximetry 96 Oxygen Delivery Method Room Air Sepsis Recent Fever Within 48 Hours No Sepsis New/Unexplained Change in Mental Status N/A Sepsis Action Taken by Nursing No Action Required 06/04/24 15:05 06/04/24 15:05 06/04/24 15:05 Temperature Temperature Source Pulse Rate Pulse Rate [Apical] Pulse Rate from SpO2 Sensor Pulse Rhythm [Apical] Pulse Strength [Apical] Respiratory Rate Respiratory Effort / Characteristics Respiratory Depth Respiratory Pattern Blood Pressure 134/66 134/66 134/66 Blood Pressure [Left Arm] Blood Pressure Mean 78 78 78 Blood Pressure Mean [Left Arm] Blood Pressure Position [Left Arm] Pulse Oximetry Oxygen Delivery Method Sepsis Recent Fever Within 48 Hours Sepsis New/Unexplained Change in Mental Status Sepsis Action Taken by Nursing 06/04/24 15:05 06/04/24 15:05 06/04/24 15:05 Temperature Temperature Source Pulse Rate Pulse Rate [Apical] Pulse Rate from SpO2 Sensor Pulse Rhythm [Apical] Pulse Strength [Apical] Respiratory Rate Respiratory Effort / Characteristics Respiratory Depth Respiratory Pattern Blood Pressure 134/66 134/66 134/66 Blood Pressure [Left Arm] Blood Pressure Mean 78 78 78 Blood Pressure Mean [Left Arm] Blood Pressure Position [Left Arm] Pulse Oximetry Oxygen Delivery Method Sepsis Recent Fever Within 48 Hours Sepsis New/Unexplained Change in Mental Status Sepsis Action Taken by Nursing 06/04/24 15:05 06/04/24 15:07 06/04/24 15:09 Temperature Temperature Source Pulse Rate 74 Pulse Rate [Apical] 69 Pulse Rate from SpO2 Sensor 73 Pulse Rhythm [Apical] Regular Pulse Strength [Apical] Normal Respiratory Rate 18 19 Respiratory Effort / Characteristics Non-Labored Spontaneous Respiratory Depth Normal Respiratory Pattern Regular Blood Pressure 134/66 Blood Pressure [Left Arm] 134/66 Blood Pressure Mean 78 Blood Pressure Mean [Left Arm] 88 Blood Pressure Position [Left Arm] Semi-fowlers Pulse Oximetry 97 96 Oxygen Delivery Method Room Air Sepsis Recent Fever Within 48 Hours Sepsis New/Unexplained Change in Mental Status Sepsis Action Taken by Nursing 06/04/24 15:27 Temperature Temperature Source Pulse Rate 78 Pulse Rate [Apical] Pulse Rate from SpO2 Sensor 77 Pulse Rhythm [Apical] Pulse Strength [Apical] Respiratory Rate 16 Respiratory Effort / Characteristics Respiratory Depth Respiratory Pattern Blood Pressure Blood Pressure [Left Arm] Blood Pressure Mean Blood Pressure Mean [Left Arm] Blood Pressure Position [Left Arm] Pulse Oximetry 95 Oxygen Delivery Method Sepsis Recent Fever Within 48 Hours Sepsis New/Unexplained Change in Mental Status Sepsis Action Taken by Jail Medications Current Medication List: was personally reviewed by me Laboratory Data Attestation: I reviewed the patient's lab results. 06/04/24 14:43 06/04/24 19:17 Lab Results 06/04/24 Range/Units 14:43 WBC 6.66 (4.8-10.8) K/ul RBC 4.78 (4.20-5.40) M/uL Hgb 14.4 (12.0-16.0) g/dl Hct 42.3 (37.0-47.0) % MCV 88.5 (80.0-100.0) fL MCH 30.1 (25.0-34.0) pg MCHC 34.0 (32.0-36.0) g/dL RDW Std Deviation 42.5 (36.4-46.3) fL RDW Coeff of Gloria 13.1 (11.5-14.5) % Plt Count 274 (130-400) K/uL MPV 9.2 L (9.4-12.4) fL Immature Gran % (Auto) 0.3 % Neut % (Auto) 59.7 % Lymph % (Auto) 32.0 % [place] % (Auto) 7.4 % Eos % (Auto) 0.3 % Baso % (Auto) 0.3 % Neut # (Auto) 3.98 (1.40-6.50) K/uL Lymph # (Auto) 2.13 (1.20-3.40) K/uL [place] # (Auto) 0.49 (0.11-0.59) K/uL Eos # (Auto) 0.02 (0.00-0.50) K/uL Baso # (Auto) 0.02 (0.00-0.20) K/uL Immature Gran # (Auto) 0.02 (0.01-0.20) K/uL Sodium 124 L (136-145) mmol/L Potassium 3.8 (3.5-5.1) mmol/L Chloride 91 L (98-107) mmol/L Carbon Dioxide 27 (21-32) mmol/L Anion Gap 6 (3-11) BUN 13 (6-23) mg/dl Creatinine 0.88 (0.6-1.2) mg/dl Est Cr Clr Drug Dosing 40.1 ml/min eGFR 65.17 BUN/Creatinine Ratio 14.8 (10-20) Glucose 136 H (70-99(Fasting)) mg/dl Osmolality 266 L (280-300) mOsm/kg Calcium 9.6 (8.6-10.3) mg/dl Administered Medications Discontinued Medications Sodium Chloride (Sodium Chloride 1 Gm Tablet) 1 gm PO NOW STA Stop: 06/04/24 15:28 Last Admin: 06/04/24 16:12 Dose: 1 gm Documented By: BS Discharge Plan Visit Data Chief Complaint: Recheck/Abnormal Lab/Rx Stated Complaint: HIGH SODIUM COUNT ED Provider: Harjeet Puckett Discharge Problem: Acute hyponatremia, Fatigue Patient Disposition: Admitted As Inpatient Discharge Instructions Interventions: ED Discharge Assessment Last Done: 06/04/24 17:28 Discharge Problem: Fatigue Qualifiers: Fatigue type: unspecified Qualified Code(s): R53.83 - Other fatigue
--- NOTE | 2024-06-04 15:06 | History & Physical Report ---
Date of Service June 04, 2024 Assessment & Plan (1) Hyponatremia: Plan: 83-year-old female with a history of SIADH, CHF presents with recurrent hyponatremia and weakness. On exam she is clinically near euvolemic to slightly volume contracted no evidence of hypervolemic hyponatremia/CHF on admission. Suspected to have either SIADH versus solute depletion. She is pending urine studies however urine sodium is limited by losartan use. Hyponatremia No evidence of hypervolemia on exam. Suspect most likely progressive solute depletion with limited sodium intake and evidence of mild volume contraction on exam, DDx includes SIADH Sodium 01/2024 136. Sodium day prior to admission 126 with fatigue No hypoxia, no lower extremity swelling to suggest CHF Urine osmolality/serum osmolality/urine sodium pending Fluid restricted, salt tabs x3 doses ordered. Monitor closely for risk of CHF with known LVEF 40% Trend BMP every 4 hours x3 Will follow urine sodium although this may be elevated due to losartan. No evidence of acute CHF on admission CAD, HFrEF No lower extremity edema, no JVD, lungs are clear. No evidence of acute exacerbation Echo 11/2023: LVEF 40-45%, apical akinesis Continue metoprolol, Plavix, losartan No chest pain, chest pressure or evidence of acute ischemia or recent angina Paroxysmal A-fib On Eliquis, continued EKG sinus with incomplete right bundle branch block. No acute ischemic changes compared to prior Continue metoprolol Hypertension Losartan continued, metoprolol continued DVT prophylaxis: Anticoagulated Disposition: M/T due to hyponatremia CODE STATUS: DNR/DNI discussed with patient and at time of assessment Diet: Liberalized regular, fluid restricted (2) GERD (gastroesophageal reflux disease): (3) Hyperlipidemia: (4) CAD (coronary artery disease): History of Present Illness Primary Care Provider: Rafael Lazo, ABBY, ROMEL Nick is an 83-year-old female with past medical history of CAD with history of [place] 08/2023 and PCI to LAD with mild residual nonculprit disease, ischemic cardiomyopathy/HFpEF EF 35-40%, A-fib on Eliquis/BB, 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 She was seen by her PCP 1 day ago and was having acute on chronic fatigue. Thyroid level and blood work was ordered this showed acute on chronic hyponatremia and she was referred to the ER for further care Patient not yet hooked up to monitor at time of visit. Heart rate is regular to auscultation and palpation. EKG ordered. Labs pending Nick is a somewhat poor historian but well oriented and collateral was collected with her at bedside. Reports she did take her medications this morning. She has not had any chest pain, chest pressure, shortness of breath, palpitations, syncope but feels overall weak and tired. No focal weakness. Easily fatigued. No leg swelling. No orthopnea. No fevers chills or sweats. No recent illness. No cough. No URI symptoms, no congestion. No dysuria or urinary symptoms. Denies polyuria and oliguria. Medications reviewed at bedside, her and her confirm all medications as listed in [facility] and she took these this morning including her Eliquis. Reports she is not currently on amiodarone. Medical History: Reviewed Medications: Reviewed Surgical History: Reviewed Family history: Reviewed Allergies: Reviewed Social History: No tobacco/ETOH use Code Status: DNR/DNI Allergies Allergy/AdvReac Type Severity Reaction Status Date / Time amoxicillin [From Augmentin] Allergy Unknown Verified 06/03/24 12:39 clavulanic acid Allergy Unknown Verified 06/03/24 12:39 [From Augmentin] doxycycline Allergy Unknown Verified 06/03/24 12:39 lisinopril Allergy Unknown vomitting Unverified 06/03/24 12:39 Penicillins Allergy Unknown HIVES Verified 06/03/24 12:39 grass pollen AdvReac Unknown Sneezing Verified 06/03/24 12:39 Home Medications Medication Instructions Recorded Confirmed Type cholecalciferol (vitamin D3) 50 2,000 unit PO QPM 11/14/17 06/04/24 History mcg (2,000 unit) capsule (Vitamin D3) multivitamin (Multiple Vitamins 1 tab PO QAM 11/14/17 06/04/24 History tablet) calcium 500 mg (as 1 tab PO QAM 02/24/19 06/04/24 History carbonate)-vitamin D3 5 mcg (200 unit) tablet (Calcium 500 + D) nitroglycerin 0.4 mg sublingual 0.4 mg sublingual Q5M PRN Chest 09/05/23 06/04/24 History tablet (Nitrostat) Pain apixaban 2.5 mg tablet (Eliquis) 2.5 mg PO BID #180 tabs 09/19/23 06/04/24 Rx atorvastatin 40 mg tablet 40 mg PO QAM #90 tabs 09/19/23 06/04/24 Rx clopidogrel 75 mg tablet 75 mg PO QAM #90 tabs 09/19/23 06/04/24 Rx omeprazole 40 mg capsule,delayed 40 mg PO QAM #90 caps 06/02/24 06/04/24 Rx release losartan 25 mg tablet 12.5 mg PO QAM 06/04/24 06/04/24 History metoprolol succinate 25 mg 12.5 mg PO QAM 06/04/24 06/04/24 History tablet,extended release 24 hr (Toprol XL) risedronate 35 mg tablet 35 mg PO Q7D #12 tabs 06/04/24 06/04/24 Rx Past Med/Surg History Problem List (Updated 06/04/24 @ 15:21 by Olivier Bowen MD) Hyponatremia Mild neurocognitive disorder GERD (gastroesophageal reflux disease) Hyperlipidemia Benign essential hypertension CAD (coronary artery disease) (Chronic) Abnormal SPEP Generalized weakness (Acute) Acute hyponatremia (Chronic) Fall (Acute) Neck pain (Acute) Allergic rhinitis (Acute) Laryngopharyngeal reflux (Acute) Osteoporosis (Chronic) Medical History Dyslipidemia Transaminitis Acute anterior wall [place] Odontoid fracture Atrial fibrillation ST elevation (STEMI) myocardial infarction Vertebral artery dissection C2 cervical fracture (~08/16/23) Cardiomyopathy Closed fracture distal radius and ulna (02/22/23) Cardiac murmur Surgical History H/O heart artery stent History of tubal ligation History of dilatation and curettage History of colonoscopy History of tonsillectomy History of adenoidectomy History of cataract surgery Family History Father Prostate cancer Mother Rheumatoid arthritis Osteoarthritis Denies family history of Ovarian cancer Myocardial infarction Breast cancer Colorectal cancer Social History Smoking Status: Never smoker Second Hand Exposure: No; Do You Dip or Chew Tobacco: No; Hx Alcohol Use: Yes Alcohol type: wine Alcohol Intake Frequency: 2-4 x/Month Hx Substance Use: No Preferred Language: Wolof Communication Ability: Effective Visual Impairment: No Limitations Hearing Ability: Normal Filling Machine Set Up Mechanic Required: No Beliefs That Will Affect Care: None marital status: Current Living Situation: Spouse current occupational status: retired current occupation: Retired How many Children do You have: 2 Feels Safe at Home: Yes Childhood Exposure to Second-Hand Smoke: Yes Diet: regular caffeine: Yes during the past year weight has: remained stable Dental Care, Regularly: Yes Physical Activity Frequency: 5-6 Times per Week Seatbelt Use: always Sunscreen Use: Yes Assistive Devices: None Physical Exam Physical Exam: General: A&Ox3. NAD. Cooperative. HEENT: Atraumatic, normocephalic. Pupils equal and reactive to light. Vision and hearing grossly intact Pulm: CTAB A&P. -wheezes, -rales, -rhonchi. Symmetrical chest rise. No increased work of breathing. No respiratory distress. Cardiac: RRR, soft sm. Radial pulses intact and symmetrical. No JVD Abdominal: Nontender, nondistended, soft. BS present. Ext: warm, dry. No edema Results & Data Results & Data Vital Signs (Past 12 Hours) Vital Signs Temp Pulse Resp BP Pulse Ox O2 Del Method 06/04/24 14:18 36.6 C 67 20 113/75 96 Room Air PG Care Time/CCT Total # of Minutes Spent Total Time Spent with Patient: Total time spent is greater than 50% in coordination of care (as documented) at patient's floor/unit and/or counseling patient: Coding Level of Care Code 77605 INT INP/OBS CARE 3/75MIN Diagnoses Hyponatremia E87.1 GERD (gastroesophageal reflux disease) K21.9 Hyperlipidemia E78.5 Coronary artery disease involving [place] coronary artery of [place] heart without angina pectoris I25.10 Coronary Disease-Associated Artery/Lesion type: [place] artery [place] vs. transplanted heart: [place] heart Associated angina: without angina (4) CAD (coronary artery disease) Coronary Disease-Associated Artery/Lesion type: [place] artery [place] vs. transplanted heart: [place] heart Associated angina: without angina Qualified Code(s): I25.10 - Atherosclerotic heart disease of [place] coronary artery without angina pectoris
[2024-06-04 15:10] LABS: Basophils # (auto) 0.02 K/uL (0.00-0.20); Basophils % (auto) 0.3 %; Eosinophils # (auto) 0.02 K/uL (0.00-0.50); Eosinophils % (auto) 0.3 %; Hematocrit (blood only) 42.3 % (37.0-47.0); Hemoglobin 14.4 g/dl (12.0-16.0); Immature Granulocytes # (auto) 0.02 K/uL (0.01-0.20); Immature Granulocytes % (auto) 0.3 %; Lymphocytes # (auto) 2.13 K/uL (1.20-3.40); Mean Corpuscular Hemoglobin 30.1 pg (25.0-34.0); Mean Corpuscular Volume 88.5 fL (80.0-100.0); Mean Platelet Volume 9.2 fL (9.4-12.4); Monocytes # (auto) 0.49 K/uL (0.11-0.59); Monocytes % (auto) 7.4 %; Neutrophils # (auto) 3.98 K/uL (1.40-6.50); Neutrophils % (auto) 59.7 %; Platelet Count 274 K/uL (130-400); RDW Coefficient of Variation 13.1 % (11.5-14.5); RDW Standard Deviation 42.5 fL (36.4-46.3); Red Blood Count 4.78 M/uL (4.20-5.40); White Blood Count 6.66 K/ul (4.8-10.8)
[2024-06-04 15:13] LABS: BUN Creatinine Ratio 14.8 (10-20); Calcium 9.6 mg/dl (8.6-10.3); Creatinine Clr Calc Pharmacy 40.1 ml/min; Potassium 3.8 mmol/L (3.5-5.1)
[2024-06-04] MEDS: SODIUM CHLORIDE 1 GM TABLET PO STA (16:12)
[2024-06-04 16:31] LABS: Adenovirus PCR Not Detected (NotDetected); Bordetella parapertussis PCR Not Detected (NotDetected); Bordetella pertussis PCR Not Detected (NotDetected); Chlamydia pneumoniae PCR Not Detected (NotDetected); Coronavirus 229E PCR Not Detected (NotDetected); Coronavirus CoV-2 (COVID19)PCR Not Detected (NotDetected); Coronavirus HKU1 PCR Not Detected (NotDetected); Coronavirus NL63 PCR Not Detected (NotDetected); Coronavirus OC43PCR Not Detected (NotDetected); Human Metapneumovirus PCR Not Detected (NotDetected); Influenza A PCR Not Detected (NotDetected); Influenza B PCR Not Detected (NotDetected); Mycoplasma pneumoniae PCR Not Detected (NotDetected); Parainfluenza Virus 1 PCR Not Detected (NotDetected); Parainfluenza Virus 2 PCR Not Detected (NotDetected); Parainfluenza Virus 3 PCR Not Detected (NotDetected); Parainfluenza Virus 4 PCR Not Detected (NotDetected); Respiratory Syncytial VirusPCR Not Detected (NotDetected); Rhinovirus/Enterovirus PCR Not Detected (NotDetected)
[2024-06-04] MEDS ORDERED: ACETAMINOPHEN 325 MG TAB PO PRN (18:18)
[2024-06-04] MEDS ORDERED: NITROGLYCERIN SL 0.4 MG/TAB TAB SL PRN (18:18)
[2024-06-04 19:51] LABS: BUN Creatinine Ratio 12.8 (10-20); Calcium 9.2 mg/dl (8.6-10.3); Potassium 4.5 mmol/L (3.5-5.1)
[2024-06-04] MEDS: APIXABAN 2.5 MG TAB PO SCH (20:43)
[2024-06-04] MEDS: CHOLECALCIFEROL 25 MCG (1000 UNITS) TAB PO SCH (20:43)
[2024-06-04 21:23] LABS: Urine Potassium 23.6 mmol/L
[2024-06-05 00:04] LABS: Calcium 8.9 mg/dl (8.6-10.3); Creatinine Clr Calc Pharmacy 38.3 ml/min; Potassium 4.1 mmol/L (3.5-5.1)
[2024-06-05] MEDS: MULTIVITAMIN TAB PO SCH (07:21)
[2024-06-05] MEDS: SODIUM CHLORIDE 1 GM TABLET PO SCH (07:21)
[2024-06-05] MEDS: PANTOprazole 40 MG TAB PO SCH (07:21)
[2024-06-05] MEDS: CLOPIDOGREL BISULFATE 75 MG TAB PO SCH (07:22)
[2024-06-05] MEDS: METOPROLOL SUCC 25MG EXT REL TAB PO SCH (07:22)
[2024-06-05] MEDS: ATORVASTATIN 40 MG TAB PO SCH (07:23)
[2024-06-05] MEDS: CALCIUM 600MG + VIT D 400 IU TAB PO SCH (07:23)
[2024-06-05] MEDS: LOSARTAN POTASSIUM 25 MG TAB PO SCH (07:23)
[2024-06-05 08:01] LABS: Basophils # (auto) 0.02 K/uL (0.00-0.20); Basophils % (auto) 0.4 %; Eosinophils # (auto) 0.04 K/uL (0.00-0.50); Eosinophils % (auto) 0.8 %; Hematocrit (blood only) 36.7 % (37.0-47.0); Hemoglobin 13.1 g/dl (12.0-16.0); Immature Granulocytes # (auto) 0.01 K/uL (0.01-0.20); Immature Granulocytes % (auto) 0.2 %; Lymphocytes # (auto) 2.17 K/uL (1.20-3.40); Lymphocytes % (auto) 42.2 %; Mean Corpuscular Hgb Conc 35.7 g/dL (32.0-36.0); Mean Platelet Volume 9.5 fL (9.4-12.4); Monocytes # (auto) 0.55 K/uL (0.11-0.59); Monocytes % (auto) 10.7 %; Neutrophils # (auto) 2.35 K/uL (1.40-6.50); Neutrophils % (auto) 45.7 %; Platelet Count 260 K/uL (130-400); RDW Coefficient of Variation 13.1 % (11.5-14.5); RDW Standard Deviation 41.1 fL (36.4-46.3); Red Blood Count 4.22 M/uL (4.20-5.40); White Blood Count 5.14 K/ul (4.8-10.8)
[2024-06-05 08:14] LABS: BUN Creatinine Ratio 15.3 (10-20); Calcium 8.9 mg/dl (8.6-10.3); Potassium 4.5 mmol/L (3.5-5.1)
[2024-06-05] MEDS: POLYETHYLENE (MIRALAX) 17 GM PACK PO SCH (10:07)
--- NOTE | 2024-06-05 13:11 | Hospitalist Progress Note ---
Date of Service June 05, 2024 Assessment & Plan (1) Hyponatremia: Plan: 83-year-old female with a history of SIADH, CHF presents with recurrent hyponatremia and weakness. On exam she is clinically near euvolemic to slightly volume contracted no evidence of hypervolemic hyponatremia/CHF on admission. Suspected to have either SIADH versus solute depletion. She is pending urine studies however urine sodium is limited by losartan use. Hyponatremia Serum and urine osmolality both low -It could be due to excessive free water consumption -Will continue fluid restriction Monitor sodium -Slight improvement, Na today 127 CAD, HFrEF No lower extremity edema, no JVD, lungs are clear. No evidence of acute exacerbation Echo 11/2023: LVEF 40-45%, apical akinesis Continue metoprolol, Plavix, losartan No chest pain, chest pressure or evidence of acute ischemia or recent angina Paroxysmal A-fib On Eliquis, continued EKG sinus with incomplete right bundle branch block. No acute ischemic changes compared to prior Continue metoprolol Hypertension Losartan continued, metoprolol continued DVT prophylaxis: Anticoagulated Disposition: M/T due to hyponatremia CODE STATUS: DNR/DNI discussed with patient and at time of assessment Diet: Liberalized regular, fluid restricted (2) GERD (gastroesophageal reflux disease): (3) Hyperlipidemia: (4) CAD (coronary artery disease): Admission and Anticipated Discharge Date Admission Date: June 04, 2024 Subjective patient seen and examined, no new complaints Review of Systems Review of Systems: All systems reviewed are negative, apart from the ones contained in the history. Physical Exam Physical Exam: The patient is awake, alert and oriented 3, well developed and well nourished, normocephalic and atraumatic, lying in bed and in no acute distress. HEENT--PERRL, EOMI, mucous membranes and oropharynx mildly dry Neck--supple. No JVD. No bruits. Thyroid normal, trachea midline, no adenopathy. Heart--normal S1 and S2. No murmurs, rubs or gallops. Lungs--clear bilaterally, no respiratory distress, no accessory muscle use. Abdomen--normal bowel sounds and soft. Extremities--no cyanosis or clubbing. No edema. Dermatologic--normal skin turgor, normal color, no abnormal lymph nodes, no rash. Neurologic--cranial nerves II through XII grossly intact. Rheumatologic--normal range of motion. Psychiatric--normal affect. Results & Data Results & Data Vital Signs (Past 12 Hours) Vital Signs Temp Pulse Pulse Pulse Resp BP Pulse Ox 06/05/24 11:38 98.8 F 52 L 20 124/80 92 06/05/24 08:11 98.6 F 57 L 20 135/68 91 06/05/24 07:25 06/05/24 07:00 52 L 06/05/24 04:31 56 L 06/05/24 03:58 98.4 F 60 18 124/52 L 92 O2 Del Method O2 Flow Rate 06/05/24 11:38 Room Air 06/05/24 08:11 Room Air 06/05/24 07:25 Room Air 06/05/24 07:00 06/05/24 04:31 06/05/24 03:58 Nasal Cannula 2 PG Care Time/CCT Total # of Minutes Spent Total Time Spent with Patient: Total time spent is greater than 50% in coordination of care (as documented) at patient's floor/unit and/or counseling patient: Coding Level of Care Code 18288 SUB INP/OBS CARE 2/35MIN Diagnoses Hyponatremia E87.1 GERD (gastroesophageal reflux disease) K21.9 Hyperlipidemia E78.5 Coronary artery disease involving [place] coronary artery of [place] heart without angina pectoris I25.10 Coronary Disease-Associated Artery/Lesion type: [place] artery [place] vs. transplanted heart: [place] heart Associated angina: without angina Time Spent (min) 35 (4) CAD (coronary artery disease) Coronary Disease-Associated Artery/Lesion type: [place] artery [place] vs. transplanted heart: [place] heart Associated angina: without angina Qualified Code(s): I25.10 - Atherosclerotic heart disease of [place] coronary artery without angina pectoris
--- NOTE | 2024-06-05 14:05 | Electrocardiogram Report ---
Test Reason : Blood Pressure : */* mmHG Vent. Rate : 69 BPM Atrial Rate : 69 BPM P-R Int : 186 ms QRS Dur : 96 ms QT Int : 408 ms P-R-T Axes : 47 -64 86 degrees QTcB Int : 437 ms Sinus rhythm with marked sinus arrhythmia Incomplete right bundle branch block Left anterior fascicular block Anterolateral infarct (cited on or before 16-Aug-2023) Abnormal ECG When compared with ECG of 05-Sep-2023 12:46, Incomplete right bundle branch block is now Present T wave inversion less evident in Lateral leads Confirmed by Artie Heaton ([id number]) on 06/05/2024 2:05:22 PM Referred By: Rafael Lazo Confirmed By: Artie Heaton
[2024-06-06 06:19] LABS: Basophils # (auto) 0.03 K/uL (0.00-0.20); Basophils % (auto) 0.5 %; Eosinophils # (auto) 0.08 K/uL (0.00-0.50); Eosinophils % (auto) 1.3 %; Hematocrit (blood only) 37.1 % (37.0-47.0); Hemoglobin 12.9 g/dl (12.0-16.0); Immature Granulocytes # (auto) 0.02 K/uL (0.01-0.20); Immature Granulocytes % (auto) 0.3 %; Lymphocytes # (auto) 2.45 K/uL (1.20-3.40); Lymphocytes % (auto) 39.3 %; Mean Corpuscular Hemoglobin 30.4 pg (25.0-34.0); Mean Corpuscular Hgb Conc 34.8 g/dL (32.0-36.0); Mean Corpuscular Volume 87.3 fL (80.0-100.0); Mean Platelet Volume 9.3 fL (9.4-12.4); Monocytes % (auto) 11.2 %; Neutrophils # (auto) 2.95 K/uL (1.40-6.50); Neutrophils % (auto) 47.4 %; Platelet Count 255 K/uL (130-400); RDW Coefficient of Variation 12.7 % (11.5-14.5); RDW Standard Deviation 40.7 fL (36.4-46.3); Red Blood Count 4.25 M/uL (4.20-5.40); White Blood Count 6.23 K/ul (4.8-10.8)
[2024-06-06 06:24] LABS: BUN Creatinine Ratio 19.7 (10-20); Calcium 8.7 mg/dl (8.6-10.3); Creatinine Clr Calc Pharmacy 49.7 ml/min; Potassium 4.3 mmol/L (3.5-5.1)
--- NOTE | 2024-06-06 10:45 | Hospitalist Progress Note ---
Date of Service June 06, 2024 Assessment & Plan (1) Hyponatremia: Plan: 83-year-old female with a history of SIADH, CHF presents with recurrent hyponatremia and weakness. On exam she is clinically near euvolemic to slightly volume contracted no evidence of hypervolemic hyponatremia/CHF on admission. Suspected to have either SIADH versus solute depletion. She is pending urine studies however urine sodium is limited by losartan use. Hyponatremia Serum and urine osmolality both low -It could be due to excessive free water consumption -Will continue fluid restriction Monitor sodium -Slight improvement, Na today 124 -Will consult Nephrology -May need hypertonic saline CAD, HFrEF No lower extremity edema, no JVD, lungs are clear. No evidence of acute exacerbation Echo 11/2023: LVEF 40-45%, apical akinesis Continue metoprolol, Plavix, losartan No chest pain, chest pressure or evidence of acute ischemia or recent angina Paroxysmal A-fib On Eliquis, continued EKG sinus with incomplete right bundle branch block. No acute ischemic changes compared to prior Continue metoprolol Hypertension Losartan continued, metoprolol continued DVT prophylaxis: Anticoagulated Disposition: M/T due to hyponatremia CODE STATUS: DNR/DNI discussed with patient and at time of assessment Diet: Liberalized regular, fluid restricted (2) GERD (gastroesophageal reflux disease): (3) Hyperlipidemia: (4) CAD (coronary artery disease): Admission and Anticipated Discharge Date Admission Date: June 04, 2024 Subjective patient seen and examined, no new complaints Review of Systems Review of Systems: All systems reviewed are negative, apart from the ones contained in the history. Physical Exam Physical Exam: The patient is awake, alert and oriented 3, well developed and well nourished, normocephalic and atraumatic, lying in bed and in no acute distress. HEENT--PERRL, EOMI, mucous membranes and oropharynx mildly dry Neck--supple. No JVD. No bruits. Thyroid normal, trachea midline, no adenopathy. Heart--normal S1 and S2. No murmurs, rubs or gallops. Lungs--clear bilaterally, no respiratory distress, no accessory muscle use. Abdomen--normal bowel sounds and soft. Extremities--no cyanosis or clubbing. No edema. Dermatologic--normal skin turgor, normal color, no abnormal lymph nodes, no rash. Neurologic--cranial nerves II through XII grossly intact. Rheumatologic--normal range of motion. Psychiatric--normal affect. Results & Data Results & Data Vital Signs (Past 12 Hours) Vital Signs Temp Pulse Pulse Resp BP Pulse Ox O2 Del Method 06/06/24 07:52 97.9 F 62 18 99/55 L 94 Room Air 06/06/24 06:45 63 06/06/24 04:20 97.7 F 58 L 20 134/75 92 Room Air 06/05/24 23:54 97.7 F 61 20 131/79 94 Room Air PG Care Time/CCT Total # of Minutes Spent Total Time Spent with Patient: Total time spent is greater than 50% in coordination of care (as documented) at patient's floor/unit and/or counseling patient: Coding Level of Care Code 81711 SUB INP/OBS CARE 2/35MIN Diagnoses Hyponatremia E87.1 GERD (gastroesophageal reflux disease) K21.9 Hyperlipidemia E78.5 Coronary artery disease involving [place] coronary artery of [place] heart without angina pectoris I25.10 Coronary Disease-Associated Artery/Lesion type: [place] artery [place] vs. transplanted heart: [place] heart Associated angina: without angina Time Spent (min) 35 (4) CAD (coronary artery disease) Coronary Disease-Associated Artery/Lesion type: [place] artery [place] vs. transplanted heart: [place] heart Associated angina: without angina Qualified Code(s): I25.10 - Atherosclerotic heart disease of [place] coronary artery without angina pectoris
--- NOTE | 2024-06-06 11:04 | Nephrology Consultation ---
Date of Consultation June 06, 2024 Assessment & Plan (1) Hyponatremia: * Chronic. Moderate. Relatively euvolemic. Appears asymptomatic. * Solute intake poor. * Mild, asymptomatic hyponatremia dating back to 03/02. * Recent worsening of hyponatremia. * No signs of decompensated CHF. * Uosm inappropriately elevated in the setting of low serum Na. * TSH acceptable. * 150 ml of 3% saline will be provided now. * Repeat serum sodium at 5PM. (2) Ischemic cardiomyopathy: * No evidence of decompensated CHF * Maintain 1.5 L daily fluid restriction (3) Generalized weakness: (4) Benign essential hypertension: * Losartan held due to hypotension * Hypertonic fluids will be provided (5) Atrial fibrillation: (6) ST elevation (STEMI) myocardial infarction: History of Present Illness Reason for Consultation: Hyponatremia Requesting Physician: Stephie Nur MD Attending Physician: Stephie Nur MD History of Present Illness Nick Ann is an 83 year-old female with coronary artery disease, ischemic cardiomyopathy/HFpEF, atrial fibrillation, SIADH, GERD, hyperlipidemia, and hypertension. Nick presented to [facility] on June 04 with progressive fatigue. Evaluation demonstrated notable hyponatremia. She was admitted and placed on free water restriction and oral NaCl. Serum sodium 126 mmol/L on admission trended down to 124 mmol/L and then to 127 mmol/L. This AM sodium has dropped back to 124 mmol/L. Nick does not have fluid retention or edema. She has not had evidence of decompensated CHF. She is breathing comfortably. She is not maintained on diuretics. Solute intake has been poor. Losartan has been held due to hypotension. Kidney filtration is preserved with a serum creatinine of <1 mg/dL. Urine osmolality is inappropriately elevated at 217 mOsm/L. Serum electrolytes are otherwise normal. Nick was admitted to [facility] in August with hyponatremia managed with oral NaCl replacement and free water restriction. The patient was seen and evaluated with her at the bedside. Allergies Allergy/AdvReac Type Severity Reaction Status Date / Time amoxicillin [From Augmentin] Allergy Unknown Verified 06/03/24 12:39 clavulanic acid Allergy Unknown Verified 06/03/24 12:39 [From Augmentin] doxycycline Allergy Unknown Verified 06/03/24 12:39 lisinopril Allergy Unknown vomitting Unverified 06/03/24 12:39 Penicillins Allergy Unknown HIVES Verified 06/03/24 12:39 grass pollen AdvReac Unknown Sneezing Verified 06/03/24 12:39 Home Medications Medication Instructions Recorded Confirmed Type cholecalciferol (vitamin D3) 50 2,000 unit PO QPM 11/14/17 06/04/24 History mcg (2,000 unit) capsule (Vitamin D3) multivitamin (Multiple Vitamins 1 tab PO QAM 11/14/17 06/04/24 History tablet) calcium 500 mg (as 1 tab PO QAM 02/24/19 06/04/24 History carbonate)-vitamin D3 5 mcg (200 unit) tablet (Calcium 500 + D) nitroglycerin 0.4 mg sublingual 0.4 mg sublingual Q5M PRN Chest 09/05/23 06/04/24 History tablet (Nitrostat) Pain apixaban 2.5 mg tablet (Eliquis) 2.5 mg PO BID #180 tabs 09/19/23 06/04/24 Rx atorvastatin 40 mg tablet 40 mg PO QAM #90 tabs 09/19/23 06/04/24 Rx clopidogrel 75 mg tablet 75 mg PO QAM #90 tabs 09/19/23 06/04/24 Rx omeprazole 40 mg capsule,delayed 40 mg PO QAM #90 caps 06/02/24 06/04/24 Rx release losartan 25 mg tablet 12.5 mg PO QAM 06/04/24 06/04/24 History metoprolol succinate 25 mg 12.5 mg PO QAM 06/04/24 06/04/24 History tablet,extended release 24 hr (Toprol XL) risedronate 35 mg tablet 35 mg PO Q7D #12 tabs 06/04/24 06/04/24 Rx Patient History Medical History Dyslipidemia Transaminitis Acute anterior wall ME Odontoid fracture Atrial fibrillation ST elevation (STEMI) myocardial infarction Vertebral artery dissection C2 cervical fracture (~08/16/23) comminuted nondisplaced type III fracture of the odontoid process fracture extends into the right body and transverse process of C2, likely involving the transverse foramen-per the Ed report from 08/16/23 the patient fell on 08/06/[address] scans Cardiomyopathy Closed fracture distal radius and ulna (02/22/23) Cardiac murmur Surgical History H/O heart artery stent History of tubal ligation History of dilatation and curettage History of colonoscopy History of tonsillectomy History of adenoidectomy History of cataract surgery R/L Family History Father Prostate cancer Mother Rheumatoid arthritis Osteoarthritis Denies family history of Ovarian cancer Myocardial infarction Breast cancer Colorectal cancer Social History Smoking Status: Never smoker Second Hand Exposure: No; Do You Dip or Chew Tobacco: No; Hx Alcohol Use: No Hx Substance Use: No Preferred Language: Chinese Communication Ability: Effective Visual Impairment: No Limitations Hearing Ability: Normal Manager Management Required: No Beliefs That Will Affect Care: None marital status: Current Living Situation: Spouse current occupational status: retired current occupation: Retired How many Children do You have: 2 Other Information That Helps Us Care for You: No Feels Safe at Home: Yes Safety Concerns: Feels Safe At This Time Childhood Exposure to Second-Hand Smoke: Yes Diet: regular caffeine: Yes during the past year weight has: remained stable Dental Care, Regularly: Yes Physical Activity Frequency: 5-6 Times per Week Seatbelt Use: always Sunscreen Use: Yes Assistive Devices: None Review of Systems Review of Systems: All systems reviewed & are unremarkable except as noted in HPI & below Physical Exam Constitutional: + thin and + frail appearing; no acute d istress Eyes: + anicteric sclerae; no conjunctival abn ormality ENMT: Mouth: no oral mucosal abnormality and oral mucous membranes not dry Neck: normal visual inspection and trachea midline Respiratory: normal respiratory effort Auscultation: lungs clear to auscultation bilaterally Cardiovascular: Rate/Rhythm: regular rate Heart Sounds: normal S1 and normal S2 Extremities: no edema Musculoskeletal: Extremities: no cyanosis and no clubbing Skin: + turgor decreased and + dry skin; no ja undice Neurologic: Motor/Sensory: no tremor and no asterixis Psychiatric: Orientation: alert and oriented x 3 Results & Data Vital Signs (Past 12 Hours) Vital Signs Temp Pulse Pulse Resp BP Pulse Ox O2 Del Method 06/06/24 07:52 36.6 C 62 18 99/55 L 94 Room Air 06/06/24 06:45 63 06/06/24 04:20 36.5 C 58 L 20 134/75 92 Room Air 06/05/24 23:54 36.5 C 61 20 131/79 94 Room Air Laboratory Results Laboratory Results - last 24 hr 06/06/24 06/06/24 05:36 08:07 WBC 6.23 RBC 4.25 Hgb 12.9 Hct 37.1 MCV 87.3 MCH 30.4 MCHC 34.8 RDW Std Deviation 40.7 RDW Coeff of [place] 12.7 Plt Count 255 MPV 9.3 L Immature Gran % (Auto) 0.3 Neut % (Auto) 47.4 Lymph % (Auto) 39.3 [place] % (Auto) 11.2 Eos % (Auto) 1.3 Baso % (Auto) 0.5 Neut # (Auto) 2.95 Lymph # (Auto) 2.45 [place] # (Auto) 0.70 H Eos # (Auto) 0.08 Baso # (Auto) 0.03 Immature Gran # (Auto) 0.02 Sodium 124 L Potassium 4.3 Chloride 94 L Carbon Dioxide 25 Anion Gap 5 BUN 14 Creatinine 0.71 Est Cr Clr Drug Dosing 49.7 eGFR 84.31 BUN/Creatinine Ratio 19.7 Glucose 101 H POC Glucose 108 H Calcium 8.7 Diagnostic Findings Laboratory Results - last 24 hr 06/06/24 06/06/24 05:36 08:07 WBC 6.23 RBC 4.25 Hgb 12.9 Hct 37.1 MCV 87.3 MCH 30.4 MCHC 34.8 RDW Std Deviation 40.7 RDW Coeff of [place] 12.7 Plt Count 255 MPV 9.3 L Immature Gran % (Auto) 0.3 Neut % (Auto) 47.4 Lymph % (Auto) 39.3 [place] % (Auto) 11.2 Eos % (Auto) 1.3 Baso % (Auto) 0.5 Neut # (Auto) 2.95 Lymph # (Auto) 2.45 [place] # (Auto) 0.70 H Eos # (Auto) 0.08 Baso # (Auto) 0.03 Immature Gran # (Auto) 0.02 Sodium 124 L Potassium 4.3 Chloride 94 L Carbon Dioxide 25 Anion Gap 5 BUN 14 Creatinine 0.71 Est Cr Clr Drug Dosing 49.7 eGFR 84.31 BUN/Creatinine Ratio 19.7 Glucose 101 H POC Glucose 108 H Calcium 8.7 PG Care Time/CCT Total # of Minutes Spent Total Time Spent with Patient: Total time spent is greater than 50% in coordination of care (as documented) at patient's floor/unit and/or counseling patient: Coding Level of Care Code 88106 OFFICE CONSULT LVL 40M Diagnoses Hyponatremia E87.1 Ischemic cardiomyopathy I25.5 Generalized weakness R53.1 Benign essential hypertension I10 Paroxysmal atrial fibrillation I48.0 Atrial fibrillation type: paroxysmal ST elevation (STEMI) myocardial infarction I21.02 Involved coronary artery: LAD coronary artery (5) Atrial fibrillation Atrial fibrillation type: paroxysmal Qualified Code(s): I48.0 - Paroxysmal atrial fibrillation (6) ST elevation (STEMI) myocardial infarction Involved coronary artery: L[place] coronary artery Qualified Code(s): I21.02 - ST elevation (STEMI) myocardial infarction involving left anterior descending coronary artery
[2024-06-06] MEDS ORDERED: STAT IV/IM STA ×2 (11:48→17:59)
[2024-06-06] MEDS: SODIUM CHLORIDE 3 % 150 ML IV ONE ×2 (12:14→18:14)
[2024-06-07 06:33] LABS: Basophils # (auto) 0.04 K/uL (0.00-0.20); Basophils % (auto) 0.6 %; Eosinophils % (auto) 1.6 %; Hematocrit (blood only) 37.2 % (37.0-47.0); Hemoglobin 12.7 g/dl (12.0-16.0); Immature Granulocytes # (auto) 0.02 K/uL (0.01-0.20); Immature Granulocytes % (auto) 0.3 %; Lymphocytes # (auto) 2.21 K/uL (1.20-3.40); Lymphocytes % (auto) 35.2 %; Mean Corpuscular Hemoglobin 30.4 pg (25.0-34.0); Mean Corpuscular Hgb Conc 34.1 g/dL (32.0-36.0); Mean Platelet Volume 9.3 fL (9.4-12.4); Monocytes # (auto) 0.74 K/uL (0.11-0.59); Monocytes % (auto) 11.8 %; Neutrophils # (auto) 3.17 K/uL (1.40-6.50); Neutrophils % (auto) 50.5 %; Platelet Count 249 K/uL (130-400); RDW Coefficient of Variation 13.2 % (11.5-14.5); RDW Standard Deviation 43.2 fL (36.4-46.3); Red Blood Count 4.18 M/uL (4.20-5.40); White Blood Count 6.28 K/ul (4.8-10.8)
[2024-06-07 06:55] LABS: BUN Creatinine Ratio 20.9 (10-20); Calcium 8.6 mg/dl (8.6-10.3); Creatinine Clr Calc Pharmacy 51.7 ml/min; Potassium 4.3 mmol/L (3.5-5.1)
--- NOTE | 2024-06-07 10:39 | Hospitalist Progress Note ---
Date of Service June 07, 2024 Assessment & Plan (1) Hyponatremia: Plan: 83-year-old female with a history of SIADH, CHF presents with recurrent hyponatremia and weakness. On exam she is clinically near euvolemic to slightly volume contracted no evidence of hypervolemic hyponatremia/CHF on admission. Suspected to have either SIADH versus solute depletion. She is pending urine studies however urine sodium is limited by losartan use. Hyponatremia Serum and urine osmolality both low -It could be due to excessive free water consumption and low solute intake -Sodium is 131 today after hypertonic saline -Appreciate nephrology -Recheck sodium by noon today Will discharge home if sodium level is acceptable CAD, HFrEF No lower extremity edema, no JVD, lungs are clear. No evidence of acute exacerbation Echo 11/2023: LVEF 40-45%, apical akinesis Continue metoprolol, Plavix, losartan No chest pain, chest pressure or evidence of acute ischemia or recent angina Paroxysmal A-fib On Eliquis, continued EKG sinus with incomplete right bundle branch block. No acute ischemic changes compared to prior Continue metoprolol Hypertension Losartan continued, metoprolol continued DVT prophylaxis: Anticoagulated Disposition: M/T due to hyponatremia CODE STATUS: DNR/DNI discussed with patient and at time of assessment Diet: Liberalized regular, fluid restricted Hopefully discharge home later today (2) GERD (gastroesophageal reflux disease): (3) Hyperlipidemia: (4) CAD (coronary artery disease): Admission and Anticipated Discharge Date Admission Date: June 04, 2024 Subjective patient seen and examined, no new complaints Review of Systems Review of Systems: All systems reviewed are negative, apart from the ones contained in the history. Physical Exam 2 Physical Exam: The patient is awake, alert and oriented 3, well developed and well nourished, normocephalic and atraumatic, lying in bed and in no acute distress. HEENT--PERRL, EOMI, mucous membranes and oropharynx mildly dry Neck--supple. No JVD. No bruits. Thyroid normal, trachea midline, no adenopathy. Heart--normal S1 and S2. No murmurs, rubs or gallops. Lungs--clear bilaterally, no respiratory distress, no accessory muscle use. Abdomen--normal bowel sounds and soft. Extremities--no cyanosis or clubbing. No edema. Dermatologic--normal skin turgor, normal color, no abnormal lymph nodes, no rash. Neurologic--cranial nerves II through XII grossly intact. Rheumatologic--normal range of motion. Psychiatric--normal affect. Results & Data Results & Data Vital Signs (Past 12 Hours) Vital Signs Temp Pulse Pulse Resp BP Pulse Ox O2 Del Method 06/07/24 07:58 97.3 F L 56 L 20 144/75 H 90 Room Air 06/07/24 06:45 45 L 06/07/24 04:10 97.7 F 55 L 20 131/61 96 Room Air 06/07/24 01:08 98.4 F 56 L 20 134/78 94 Room Air PG Care Time/CCT Total # of Minutes Spent Total Time Spent with Patient: Total time spent is greater than 50% in coordination of care (as documented) at patient's floor/unit and/or counseling patient: Coding Level of Care Code 26732 SUB INP/OBS CARE 2/35MIN Diagnoses Hyponatremia E87.1 GERD (gastroesophageal reflux disease) K21.9 Hyperlipidemia E78.5 Coronary artery disease involving [place] coronary artery of [place] heart without angina pectoris I25.10 Coronary Disease-Associated Artery/Lesion type: [place] artery [place] vs. transplanted heart: [place] heart Associated angina: without angina Time Spent (min) 35 (4) CAD (coronary artery disease) Coronary Disease-Associated Artery/Lesion type: [place] artery [place] vs. transplanted heart: [place] heart Associated angina: without angina Qualified Code(s): I25.10 - Atherosclerotic heart disease of [place] coronary artery withou t angina pectoris
[2024-06-07] MEDS: SODIUM CHLORIDE 1 GM TABLET PO SCH (11:13)
[2024-06-07 11:31] VITALS: BP 126/70; RESP 18; TEMP 97.7; O2SAT 93
[2024-06-07 11:38] LABS: BUN Creatinine Ratio 20.3 (10-20); Calcium 8.9 mg/dl (8.6-10.3); Creatinine Clr Calc Pharmacy 54.1 ml/min; Potassium 4.6 mmol/L (3.5-5.1)
--- NOTE | 2024-06-07 13:17 | Discharge Summary ---
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 She was seen by her PCP 1 day ago and was having acute on chronic fatigue. Thyroid level and blood work was ordered this showed acute on chronic hyponatremia and she was referred to the ER for further care Patient not yet hooked up to monitor at time of visit. Heart rate is regular to auscultation and palpation. EKG ordered. Labs pending Nick is a somewhat poor historian but well oriented and collateral was collected with her at bedside. Reports she did take her medications this morning. She has not had any chest pain, chest pressure, shortness of breath, palpitations, syncope but feels overall weak and tired. No focal weakness. Easily fatigued. No leg swelling. No orthopnea. No fevers chills or sweats. No recent illness. No cough. No URI symptoms, no congestion. No dysuria or urinary symptoms. Denies polyuria and oliguria. Medications reviewed at bedside, her and her confirm all medications as listed in [facility] and she took these this morning including her Eliquis. Reports she is not currently on amiodarone. Medical History: Reviewed Medications: Reviewed Surgical History: Reviewed Family history: Reviewed Allergies: Reviewed Social History: No tobacco/ETOH use Code Status: DNR/DNI Admission Exam (Per Admitting) Constitutional The patient is awake, alert and oriented 3, well developed and well nourished, normocephalic and atraumatic, lying in bed and in no acute distress. HEENT--PERRL, EOMI, mucous membranes and oropharynx mildly dry Neck--supple. No JVD. No bruits. Thyroid normal, trachea midline, no adenopathy. Heart--normal S1 and S2. No murmurs, rubs or gallops. Lungs--clear bilaterally, no respiratory distress, no accessory muscle use. Abdomen--normal bowel sounds and soft. Extremities--no cyanosis or clubbing. No edema. Dermatologic--normal skin turgor, normal color, no abnormal lymph nodes, no rash. Neurologic--cranial nerves II through XII grossly intact. Rheumatologic--normal range of motion. Psychiatric--normal affect. Discharge Data Consultations 06/04/24 15:04 ED Decision to Admit Stat 06/06/24 07:51 Consult Nephrology Routine Hospital Course (1) Hyponatremia: 83-year-old female with a history of SIADH, CHF presents with recurrent hyponatremia and weakness. On exam she is clinically near euvolemic to slightly volume contracted no evidence of hypervolemic hyponatremia/CHF on admission. Suspected to have either SIADH versus solute depletion. She is pending urine studies however urine sodium is limited by losartan use. Hyponatremia Serum and urine osmolality both low -It could be due to excessive free water consumption and low solute intake -Sodium is 131 today after hypertonic saline -Appreciate nephrology -Recheck sodium by noon today, 129 Will discharge home on oral sodium tablets TID for 5 days recheck lab outpatient in 3 days CAD, HFrEF No lower extremity edema, no JVD, lungs are clear. No evidence of acute exacerbation Echo 11/2023: LVEF 40-45%, apical akinesis Continue metoprolol, Plavix, losartan No chest pain, chest pressure or evidence of acute ischemia or recent angina Paroxysmal A-fib On Eliquis, continued EKG sinus with incomplete right bundle branch block. No acute ischemic changes compared to prior Continue metoprolol Hypertension Losartan continued, metoprolol continued DVT prophylaxis: Anticoagulated Disposition: M/T due to hyponatremia CODE STATUS: DNR/DNI discussed with patient and at time of assessment Diet: Liberalized regular, fluid restricted Hopefully discharge home later today (2) GERD (gastroesophageal reflux disease): (3) Hyperlipidemia: (4) CAD (coronary artery disease): Coding Level of Care Code 87671 INP/OBS DISCH >30 MIN Diagnoses Hyponatremia E87.1 GERD (gastroesophageal reflux disease) K21.9 Hyperlipidemia E78.5 Coronary artery disease involving [place] coronary artery of [place] heart without angina pectoris I25.10 Coronary Disease-Associated Artery/Lesion type: [place] artery [place] vs. transplanted heart: [place] heart Associated angina: without angina Time Spent (min) 35
--- NOTE | 2024-06-07 13:38 | Nephrology Progress Note ---
Date of Service June 07, 2024 Assessment & Plan (1) Hyponatremia: Plan: * Chronic. Euvolemic. Asymptomatic. * Sodium is improving acceptably following hypertonic fluids yesterday. * Transitioned to PO NaCl this AM. * Maintain fluid restriction ~1.5 L/d. * Repeat serum sodium this evening. * Anticipate possible discharge tomorrow if sodium continue to improve (2) Ischemic cardiomyopathy: Plan: * No evidence of decompensated CHF * Maintain 1.5 L daily fluid restriction (3) Generalized weakness: (4) Benign essential hypertension: Plan: * Losartan had been held due to low BP but may be restarted as needed. (5) Atrial fibrillation: (6) ST elevation (STEMI) myocardial infarction: Admission and Anticipated Discharge Date Admission Date: June 04, 2024 Subjective No acute events overnight. No complaints this AM. Nick was seen and evaluated with her at the bedside. Review of Systems Review of Systems: All systems reviewed & are unremarkable except as noted in HPI & below Physical Exam Constitutional: + thin and + frail appearing; no acute d istress Eyes: + anicteric sclerae; no conjunctival abn ormality ENMT: Mouth: no oral mucosal abnormality and oral mucous membranes not dry Neck: normal visual inspection and trachea midline Respiratory: normal respiratory effort Auscultation: lungs clear to auscultation bilaterally Cardiovascular: Rate/Rhythm: regular rate Heart Sounds: normal S1 and normal S2 Extremities: no edema Musculoskeletal: Extremities: no cyanosis and no clubbing Skin: + turgor decreased and + dry skin; no ja undice Neurologic: Motor/Sensory: no tremor and no asterixis Psychiatric: Orientation: alert and oriented x 3 Results & Data Vital Signs (Past 12 Hours) Vital Signs Temp Pulse Pulse Resp BP Pulse Ox O2 Del Method 06/07/24 11:30 36.5 C 59 L 18 126/70 93 Room Air 06/07/24 07:58 36.3 C L 56 L 20 144/75 H 90 Room Air 06/07/24 06:45 45 L 06/07/24 04:10 36.5 C 55 L 20 131/61 96 Room Air Laboratory Results Laboratory Results - last 24 hr 06/06/24 06/06/24 06/07/24 16:57 22:24 06:00 WBC 6.28 RBC 4.18 L Hgb 12.7 Hct 37.2 MCV 89.0 MCH 30.4 MCHC 34.1 RDW Std Deviation 43.2 RDW Coeff of [place] 13.2 Plt Count 249 MPV 9.3 L Immature Gran % (Auto) 0.3 Neut % (Auto) 50.5 Lymph % (Auto) 35.2 [place] % (Auto) 11.8 Eos % (Auto) 1.6 Baso % (Auto) 0.6 Neut # (Auto) 3.17 Lymph # (Auto) 2.21 [place] # (Auto) 0.74 H Eos # (Auto) 0.10 Baso # (Auto) 0.04 Immature Gran # (Auto) 0.02 Sodium 127 L 129 L 131 L Potassium 4.3 Chloride 101 Carbon Dioxide 25 Anion Gap 5 BUN 14 Creatinine 0.67 Est Cr Clr Drug Dosing 51.7 eGFR 86.67 BUN/Creatinine Ratio 20.9 H Glucose 96 Calcium 8.6 06/07/24 11:08 WBC RBC Hgb Hct MCV MCH MCHC RDW Std Deviation RDW Coeff of [place] Plt Count MPV Immature Gran % (Auto) Neut % (Auto) Lymph % (Auto) [place] % (Auto) Eos % (Auto) Baso % (Auto) Neut # (Auto) Lymph # (Auto) [place] # (Auto) Eos # (Auto) Baso # (Auto) Immature Gran # (Auto) Sodium 129 L Potassium 4.6 Chloride 100 Carbon Dioxide 22 Anion Gap 7 BUN 13 Creatinine 0.64 Est Cr Clr Drug Dosing 54.1 eGFR 87.63 BUN/Creatinine Ratio 20.3 H Glucose 143 H Calcium 8.9 PG Care Time/CCT Total # of Minutes Spent Total Time Spent with Patient: Total time spent is greater than 50% in coordination of care (as documented) at patient's floor/unit and/or counseling patient: Coding Level of Care Code 23110 SUB INP/OBS CARE 3/50MIN Diagnoses Hyponatremia E87.1 Ischemic cardiomyopathy I25.5 Generalized weakness R53.1 Benign essential hypertension I10 Paroxysmal atrial fibrillation I48.0 Atrial fibrillation type: paroxysmal ST elevation (STEMI) myocardial infarction I21.02 Involved coronary artery: LAD coronary artery (5) Atrial fibrillation Atrial fibrillation type: paroxysmal Qualified Code(s): I48.0 - Paroxysmal at rial fibrillation (6) ST elevation (STEMI) myocardial infarction Involved coronary artery: LAD coronary artery Qualified Code(s): I21.02 - ST elevation (STEMI) myocardial infarction involving left anterior descending coronary artery
[2024-06-07 14:34] VITALS: PULSE 62
== END 2024-06-07 14:53 | disposition home or self-care (01) | DRG 644 ==
LOC: ED 14:05 → 2W 15:28 → SUATTDRO 15:28 → 2W 17:28